=== PATIENT | female | born 1945 | race Caucasian/White ===

== ENCOUNTER 2020-06-15 13:02 | Emergency (ER) | payer MEDICARE, SELFPAY ==
[2020-06-15] VITALS (24 sets, daily range): BP systolic 101–141; BP diastolic 52–80; PULSE 76–115; RESP 0–20; TEMP 36.8; O2SAT 92–100
--- NOTE | ~2020-06-15 | XR_ITS ---
EXAMINATION: XR chest 1V portable INDICATION: Cough and shortness of breath TECHNIQUE: Portable AP chest at 1408 hours COMPARISON: None available FINDINGS: The lungs are free of acute opacities. There is no pleural effusion or pneumothorax. The ca rdiomediastinal silhouette is normal. IMPRESSION: 1. No acute cardiopulmonary abnormality. Reviewed, dictated and finalized at location B.
--- NOTE | ~2020-06-15 | CT_ITS ---
EXAMINATION: CTA chest PE protocol EXAM DATE: 06/15/2020 15:18 INDICATION: Cough and congestion, symptoms one week. Dyspnea. TECHNIQUE: Spiral CTA of the chest (pulmonary arteries) was performed with 100 cc Omnipaque 350 intr avenous contrast injection. Images were acquired during the pulmonary arterial phase. Coronal maxi mum intensity projection 3D-reconstructions were created by the technologist on dedicated workstation . Axial, coronal and sagittal reformatted images were reviewed. The dose-length product (DLP) for t his examination was 257.69 mGy-cm. The exposure was tailored according to patient size (auto mA exp osure control), and iterative reconstruction (ASIR) was used as additional dose reduction technique. There is no prior study for comparison. FINDINGS: Pulmonary arteries are well opacified and without intraluminal filling defects. No thora cic aortic dissection. The lungs are clear. There are no pleural or pericardial effusions. Trach eobronchial tree is patent. There is no mediastinal, hilar or axillary lymphadenopathy. There is no pneumothorax. Heart normal in size. There is mild coronary arterial calcification, arterial sc lerosis. Upper abdomen is unremarkable. There is mild thoracic spondylosis without osteoblastic or osteolytic lesions identified. IMPRESSION: 1. No pulmonary emboli or acute cardiopulmonary findings. Reviewed, dictated and finalized at location A.
--- NOTE | 2020-06-15 13:34 | ECG_ITS ---
Measurements Intervals [place] Rate: 91 P: 20 [place]: 168 QRS: 8 QRSD: 77 T: 36 QT: 328 QTc: 404 Interpretive Statements SINUS RHYTHM POSSIBLE LEFT ATRIAL ENLARGEMENT INCOMPLETE RIGHT BUNDLE BRANCH BLOCK BORDERLINE ECG Electronically Signed On 06-15-2020 15:50:42 CDT by Wayne Guadarrama D.O.
--- NOTE | 2020-06-15 13:38 | ED.SOB ---
HPI - SOB/Dyspnea General Chief Complaint: Shortness of Breath/Dyspnea Stated Complaint: SOB, chills, -COVID 06/08/20 Time Seen by Provider: 06/15/20 13:28 Source: RN notes reviewed History of Present Illness HPI Narrative: Patient presents emergency department from home for shortness of breath. Patient states symptoms been ongoing for the past 10 days. States he has been associated with a cough that is been productive of some yellow sputum. Patient states that she is felt some shortness of breath today as well as a heaviness in her chest and rhinorrhea. Patient states heaviness in chest is worse with coughing states that she was seen in urgent care on 06/08/2020 and had a negative cover test at that time as well as negative chest x-ray. She denies any fevers or chills abdominal pain nausea vomiting or any other symptoms Related Data Home Medications Medication Instructions Recorded Confirmed FiberCon 06/15/20 alprazolam 06/15/20 06/15/20 amlodipine 06/15/20 atorvastatin 06/15/20 cyclosporine [Restasis] 06/15/20 duloxetine mg PO 06/15/20 lactobacillus combination no.8 06/15/20 [Adult Probiotic] lisinopril 06/15/20 omeprazole 06/15/20 Allergies Allergy/AdvReac Type Severity Reaction Status Date / Time sulfamethoxazole Allergy Swelling Verified 06/15/20 14:18 [From ] of Lip/Tongue/Throat trimethoprim [From ] Allergy Swelling Verified 06/15/20 14:18 of Lip/Tongue/Throat Review of Systems Review of Systems: Narrative: Gen.: Denies fevers or chills Eyes: Denies eye pain or visual change ENT: Reports congestion Respiratory: See HPI CV: Reports chest heaviness GI: Denies abdominal pain nausea, emesis or diarrhea Musculoskeletal: Denies back pain or muscle pain Neuro: Denies numbness, tingling, weakness or focal weakness Skin: Denies rash Except as documented, all other systems reviewed and negative [facility] Past Medical History Medical History (Updated 06/15/20 @ 17:56 by Ric Hester DO) Irritable bowel syndrome Social History Social History (Updated 06/15/20 @ 13:40 by Ric Hester DO) Smoking status: Current every day smoker Exam Narrative: Exam Narrative: APPEARANCE: No acute distress, nontoxic, resting in bed EYES: EOMI HEENT: Normocephalic, atraumatic, bilateral turbinates boggy, oral mucosa moist RESPIRATORY: No respiratory distress Clear to auscultation bilaterally with no rhonchi wheezing or rales. CARDIOVASCULAR: Regular rate and rhythm without murmurs rubs or gallops. ABDOMINAL: Soft, nontender, nondistended, no rebound or guarding MUSCULOSKELETAl: Moves all extremities. No clubbing, cyanosis or edema. NEURO: Awake and alert. Following commands, speech normal, no focal deficits SKIN:: Warm, dry. No rashes lesions or abrasions PSYCHIATRIC: Normal affect/mood, Course Course Emergency Course: Patient given inhaler in ED states she is feeling better at this time the patient did have a cover test that was negative on June 08 but will repeat cover test at this time Discussed with patient results of workup and diagnosis. Discussed need for follow-up with primary care, proper use of medication, and reasons to return to the emergency department. Patient understands and agrees to current treatment plan Vital Signs Vital signs: Vital Signs Temperature 98.3 F 06/15/20 13:26 Pulse Rate 115 H 06/15/20 13:26 Respiratory Rate 18 06/15/20 13:26 Blood Pressure 119/74 06/15/20 13:26 Pulse Oximetry 100 06/15/20 13:26 Temperature 98.3 F 06/15/20 13:26 Pulse Rate 80 06/15/20 17:00 Respiratory Rate 20 06/15/20 17:00 Blood Pressure 129/68 06/15/20 16:46 Pulse Oximetry 100 06/15/20 16:46 MDM - SOB/Dyspnea MDM Narrative Medical decision making narrative: Patient's EKGs and labs are without significant high risk changes. Cardiac risk factors reviewed. Patient is felt likely low risk for ACS and reasonable for furthe
[2020-06-15 14:04] LABS: Basophils Absolute Auto 0.1 K/mm3 (0.0-0.1); Basophils Percent Auto 0.6 % (0.2-1.2); Eosinophils Absolute Auto 0.1 K/mm3 (0-0.3); Eosinophils Percent Auto 0.7 % (0-4.4); Hematocrit 40.3 % (37.0-47.0); Hemoglobin 13.1 g/dL (12.0-15.0); Immature Granulocyte Absolute 0.03 K/mm3 (0.00-0.031); Immature Granulocyte Percent A 0.3 % (0-0.5); Lymphocytes Absolute Auto 2.27 K/mm3 (0.9-3.2); Lymphocytes Percent Auto 23.4 % (18.3-44.2); Mean Corpuscular HGB Conc 32.5 g/dl (32-36); Mean Corpuscular Hemoglobin 28.7 pg (26-34); Mean Corpuscular Volume 88.2 fl (80-100); Mean Platelet Volume 9.9 fl (7.4-10.4); Monocytes Absolute Auto 0.8 K/mm3 (0.1-0.6); Neutrophils Absolute Auto 6.5 K/mm3 (1.3-6.7); Platelet Count Result 388 k/mm3 (150-375); Red Blood Count 4.57 M/mm3 (4.2-5.4); Red Cell Distribution Width 14.5 % (11.5-14.5); White Blood Count 9.7 K/mm3 (4.5-10.0)
[2020-06-15 14:14] LABS: Anion Gap 7 mmol/L (8-16); Blood Urea Nitrogen 26 mg/dL (7-17); Calcium 9.1 mg/dL (8.4-10.2); Carbon Dioxide 26 mmol/L (22-30); Chloride 102 mmol/L (98-107); Estimated CRCL calculation 52 ml/min; Estimated Glomerular Filt Rate > 60; Glucose 158 mg/dL (65-105); Potassium 3.9 mmol/L (3.4-5.0); Sodium 135 mmol/L (137-145)
[2020-06-15 14:18] LABS: Prothrombin Time 12.4 Seconds (11.1-14.7)
[2020-06-15 14:19] LABS: Partial Thromboplastin Time 31.2 SECONDS (22.3-36.8)
[2020-06-15 14:26] LABS: NT Pro B Type Natriuretic Pept 39 PG/ML (5-100); Troponin I < 0.012 ng/mL (0.000-0.034)
[2020-06-15 17:05] LABS: Troponin I < 0.012 ng/mL (0.000-0.034)
[2020-06-16 01:17] LABS: SARS-CoV-2 RNA PCR Negative
== END 2020-06-15 18:10 | disposition home or self-care (01) ==
PROVIDERS: Emergency Provider Emergency Medicine; PCP Internal Medicine
DX: J06.9 Acute upper respiratory infection, unspecified (principal); Z20.828 Contact with and (suspected) exposure to other viral communicable diseases; K58.9 Irritable bowel syndrome, unspecified; F17.200 Nicotine dependence, unspecified, uncomplicated; I45.10 Unspecified right bundle-branch block; R94.31 Abnormal electrocardiogram [ECG] [EKG]
CPT/HCPCS: 36415; 71045; 71275; 80048; 83880; 84484; 85025; 85610; 85730; 87635; 93005; 96374; 99284; A9270; C9803; J0131; Q9967; U0003

== ENCOUNTER → 2021-02-03 09:50 | Outpatient (CLI) | payer MEDICARE, SELFPAY ==
--- NOTE | ~2021-02-03 | MR_ITS ---
EXAMINATION: MR cervical spine wo con EXAM DATE: 02/03/2021 10:46 INDICATION: Cervical disc disorder at C4-C7 level with myelopathy cervical disc disorder at c4-c7 lev el with myelopathy . TECHNIQUE: Multi-sequential, multiplanar MR images of the cervical spine were obtained without contra st. Axial T2, axial T2 MERGE sequence. Sagittal T1, T2, T2 fat saturation images also obtained. Th ere is no prior study for comparison. FINDINGS: Moderate to severe loss of the disc height C4-C7. Disc bulges at these levels causing some flattening of the spinal cord which is most likely chronic cord compression, canal most narrowed at the C5-6 level to 6 mm. No definite cord edema identified. The vertebral bodies are aligned in the AP dimension. Cervicomedullary junction is normal in appearance. There are no suspicious marrow signal abnormalities. Paraspinal soft tissue is unremarkable. Level by level evaluation: C2-C3: Disc does not extend beyond the endplate margin. Uncovertebral joint arthropathy: Mild right. Facet joint arthropathy: Mild to moderate right, mild left. Neural foraminal stenosis: Mild to moderate right. Central canal stenosis: No stenosis. C3-C4: Disc does not extend beyond the endplate margin. Uncovertebral joint arthropathy: Mild to moderate right, mild left. Facet joint arthropathy: Mild to moderate bilateral. Neural foraminal stenosis: Mild to moderate bilateral. Central canal stenosis: No stenosis. C4-C5: There is a mild diffuse disc bulge. Uncovertebral joint arthropathy: Moderate to severe right, moderate left. Facet joint arthropathy: Moderate bilateral. Neural foraminal stenosis: Moderate to severe right, moderate left. Central canal stenosis: Mild. C5-C6: There is a mild diffuse disc bulge. Uncovertebral joint arthropathy: Severe left, moderate to severe right. Facet joint arthropathy: Moderate bilateral. Neural foraminal stenosis: Moderate to severe bilateral. Central canal stenosis: Mild to moderate . Central canal measures 6 mm in mid sagittal AP diameter . C6-C7: There is a mild diffuse disc bulge. Uncovertebral joint arthropathy: Severe right, moderate to severe left. Facet joint arthropathy: Mild to moderate bilateral. Neural foraminal stenosis: Severe right, moderate left. Central canal stenosis: Mild . Central canal measures 7 mm in mid sagittal AP diameter . C7-T1: Disc does not extend beyond the endplate margin. Uncovertebral joint arthropathy: Mild bilateral. Facet joint arthropathy: Mild to moderate bilateral. Neural foraminal stenosis: Mild bilateral. Central canal stenosis: No stenosis. IMPRESSION: Chronic cord compression C4-7, with minimal CSF space surrounding the cord at C5-6 and 6- 7 levels. No definite cord edema. Significant neural foraminal stenosis at these levels. Reviewed, dictated and finalized at location A. IMPRESSION: Chronic cord compression C4-7, with minimal CSF space surrounding t he cord at C5-6 and 6-7 levels. No definite cord edema. Significant neural for aminal stenosis at these levels.
== END ==
PROVIDERS: Visit Provider Neurological Surgery
DX: M50.021 Cervical disc disorder at C4-C5 level with myelopathy (principal); M50.022 Cervical disc disorder at C5-C6 level with myelopathy; M50.023 Cervical disc disorder at C6-C7 level with myelopathy
CPT/HCPCS: 72141

== ENCOUNTER 2021-02-06 09:36 | Outpatient (CLI) | payer MEDICARE, SELFPAY ==
--- NOTE | ~2021-02-06 | US_ITS ---
EXAMINATION: US carotid duplex BI DATE: 02/06/2021 10:23 INDICATION: Bilateral carotid stenosis. Coronary atherosclerosis. TECHNIQUE: Grayscale, color Doppler, and pulsed Doppler images of the cervical carotid arteries were obtained. The degree of vessel stenosis is placed in one of the following categories: normal, <50%, 5 0-69%, >=70% but less than near-occlusion, near-occlusion, or total occlusion. Note that percent sten osis relative to normal distal artery lumen diameter is indirectly measured from velocity measurement s as described by Melvin, et al. Radiology 2003; 229:340-346. Notes: Normal: Peak systolic velocity <125 centimeters/sec and no plaque <50%. Peak systolic velocity <125 ( EDV <40; ICA/CCA PSV ratio <2.0; used these factors only a tandem lesions or low cardiac output or co ntralateral disease) 50-69 %: PSV 125-230 (EDV 40-100; ratio 2-4) >= 70% but less than near occlusion: PSV greater than 230 (EDV > 100; ratio> 4.0) Near Occlusion: PSV that is variable; markedly narrowed lumen Occlusion: Absent flow on color/spectral Doppler and no lumen on alvarado scale. COMPARISON: None. FINDINGS: RIGHT: The right common carotid artery (CCA) peak systolic velocity (PSV) is 76 cm/s. The right internal car otid artery (ICA) PSV is 76 cm/s. The right ICA end-diastolic velocity (EDV) is 23 cm/s. The right IC A/CCA PSV ratio is 1.0. The external carotid artery (ECA) PSV is 99 cm/s. There is antegrade flow in the right vertebral artery. LEFT: The left CCA PSV is 67 cm/s. The left ICA PSV is 71 cm/s. The left ICA EDV is 21 cm/s. The left ICA/C CA PSV ratio is 1.06. The ECA PSV is 95 cm/s. There is antegrade flow in the left vertebral artery. IMPRESSION: 1. Less than 50% stenosis in the right internal carotid artery by sonographic criteria. 2. Less than 50% stenosis in the left internal carotid artery by sonographic criteria. Reviewed, dictated and finalized at location A. IMPRESSION: 1. Less than 50% stenosis in the right internal carotid artery by sonographic c kandaceeria. 2. Less than 50% stenosis in the left internal carotid artery by sonographic cr zhen.
== END 2021-02-06 09:37 | disposition home or self-care (01) ==
PROVIDERS: Visit Provider Neurological Surgery
DX: I65.23 Occlusion and stenosis of bilateral carotid arteries (principal)
CPT/HCPCS: 93880

== ENCOUNTER → 2021-03-08 10:45 | Outpatient (CLI) | payer MEDICARE, SELFPAY ==
--- NOTE | ~2021-03-08 | XR_ITS ---
EXAMINATION: XR cervical spine 4-5V EXAM DATE: 03/08/2021 11:14 INDICATION: Cervical fusion. TECHNIQUE: Cervical spine frontal, lateral, and open-mouth odontoid projections. Bilateral oblique projections of the cervical spine. There are no prior studies for comparison. FINDINGS: Anterior and interbody fusion C4-7, hardware intact. The vertebral bodies are aligned in th e AP dimension. Vertebral body and disc heights are well-maintained. Overall mild to moderate cervica l arthropathy and mild uncovertebral joint disease, with evidence of mild left neural foraminal steno sis at C4-5 and 5-6, mild right neural foraminal stenosis at C6-7. Prevertebral soft tissue and pre-d ens space are within normal limits. The odontoid process is intact. The lateral masses of C1 line up with C2. IMPRESSION: 1. Mild to moderate cervical arthropathy. Reviewed, dictated and finalized at location B.
== END ==
PROVIDERS: Visit Provider Neurological Surgery
DX: M43.22 Fusion of spine, cervical region (principal); M47.812 Spondylosis without myelopathy or radiculopathy, cervical region
CPT/HCPCS: 72050

== ENCOUNTER → 2021-05-05 12:21 | Outpatient (CLI) | payer MEDICARE, SELFPAY ==
--- NOTE | ~2021-05-05 | XR_ITS ---
EXAMINATION:XR cervical spine 4-5V DATE: 05/05/2021 12:39 INDICATION: Fusion of the spine, cervical region TECHNIQUE: AP, lateral, bilateral oblique and odontoid views of the cervical spine are provided. COMPARISON: 03/08/2021 FINDINGS: There are stable changes of anterior and interbody fusion from C4 through C7. There is no h ardware failure or loosening. Alignment is normal. The odontoid is intact. No fracture is identified. The vertebral body heights are normal. There is moderate multilevel facet osteoarthritis and mild mu ltilevel uncovertebral joint osteoarthritis. There is unchanged mild right neuroforaminal stenosis on the left at C4-5 and C5-6 and on the right at C6-7. Prevertebral soft tissues are normal. IMPRESSION: 1. Mild to moderate spondylosis without acute findings or significant interval change. Reviewed, dictated and finalized at location A.
== END ==
PROVIDERS: Visit Provider Neurological Surgery
DX: M43.22 Fusion of spine, cervical region (principal); M47.812 Spondylosis without myelopathy or radiculopathy, cervical region
CPT/HCPCS: 72050

== ENCOUNTER → 2021-10-24 10:12 | Outpatient (CLI) | payer MEDICARE, SELFPAY ==
--- NOTE | ~2021-10-24 | CT_ITS ---
EXAMINATION: CT abdomen pelvis w con DATE: 10/24/2021 10:51 INDICATION: Epigastric abdominal pain. TECHNIQUE: Computed tomography (CT) of the abdomen and pelvis was performed with 100 cc Omnipaque 350 intravenous contrast. Automated exposure control and iterative reconstruction technique were employe d. Exam dose: 550.37 mGy-cm total exam DLP. COMPARISON: 05/05/2017 CT abdomen pelvis FINDINGS: Lung bases are clear of consolidation. Normal heart size. No pericardial or pleural effusio n. No hepatic space-occupying mass lesion is detected. The gallbladder is present. No bile duct or pancr eatic duct dilatation. No pancreatic mass lesion or calcification. Normal splenic size. No adrenal mass lesion 12 mm upper pole right renal cyst.. No urinary tract calculus or hydroureteronephrosis. The urinary b ladder, uterus and adnexal areas are unremarkable. There is a suture line at the rectosigmoid area as well as a prominent amount of fecal material withi n the colon. History of appendectomy. No bowel obstruction, bowel wall thickening, pneumatosis or int raperitoneal free air. Normal caliber of the abdominal aorta. No intraperitoneal or retroperitoneal or pelvic mass lesion or adenopathy or ascites. Very small fat-containing umbilical hernia. Severe degenerative disc disease at L5-S1. Diffuse osteopenia. No suspicious osteolytic or osteoblast ic lesions are noted. IMPRESSION: Status post appendectomy Postoperative changes rectosigmoid area; no bowel obstruction 12 mm upper pole right renal cyst Reviewed, dictated and finalized at Location A. Reviewed, dictated and finalized at location A. MIN MANAGER
[2021-10-24 10:40] LABS: Estimated Glomerular Filt Rate > 60
== END ==
PROVIDERS: PCP Family Medicine; Visit Provider Internal Medicine Gastroenterology
DX: R10.13 Epigastric pain (principal); N28.1 Cyst of kidney, acquired
CPT/HCPCS: 74177; Q9967

== ENCOUNTER 2021-11-16 15:48 | Observation (INO) | payer MEDICARE, SELFPAY ==
--- NOTE | ~2021-11-16 | XR_ITS ---
EXAMINATION: XR chest 1V portable DATE: 11/16/2021 16:29 INDICATION: Left chest pain. Shortness of breath. TECHNIQUE: A single frontal view of the chest was obtained. COMPARISON: Chest single view 06/15/2020, CT abdomen and pelvis 10/24/2021 FINDINGS: The chest demonstrates clear lungs without pneumonia, pleural effusion, or pneumothorax. Th e heart size is normal. There are changes of anterior fusion procedure in cervical spine. IMPRESSION: 1. No acute cardiopulmonary disease. Reviewed, dictated and finalized at location E. PROFESSOR
--- NOTE | ~2021-11-16 | CT_ITS ---
EXAMINATION: CTA chest PE protocol DATE: 11/16/2021 17:26 INDICATION: Shortness of breath. TECHNIQUE: Computed tomography angiography (CTA) of the chest was performed with 100 mL Omnipaque-350 intravenous contrast timed to evaluate the pulmonary arteries. Coronal maximum intensity projection 3D-reconstructions were created by the technologist. Automated exposure control and iterative reconst ruction technique were employed. The dose-length product was 182.42 mGy-cm. COMPARISON: Chest CT 06/15/2020 FINDINGS: There is mild scarring at the lung apices. There is a stable 3 mm nodule in left upper lobe , likely benign. There is mild atelectasis bilaterally. There is mild emphysema. No pleural effusion. The heart size is normal. There are coronary artery calcifications. No pericardial effusion. There i s no pulmonary embolus. There is severe thoracic spondylosis. There are changes of anterior fusion pr ocedure in cervical spine. IMPRESSION: 1. No pulmonary embolus. 2. Mild emphysema. Reviewed, dictated and finalized at location E. TENANCE TEAM LEADER
[2021-11-16 15:52] VITALS: BP 126/65; PULSE 83; RESP 18; TEMP 36.9; O2SAT 98
[2021-11-16 16:01] VITALS: BP 135/70; PULSE 93; RESP 22; O2SAT 98
[2021-11-16 16:10] LABS: Basophils Absolute Auto 0.1 K/mm3 (0.0-0.1); Basophils Percent Auto 0.7 % (0.2-1.2); Eosinophils Absolute Auto 0.1 K/mm3 (0-0.3); Eosinophils Percent Auto 0.9 % (0-4.4); Hematocrit 45.1 % (37.0-47.0); Hemoglobin 14.9 g/dL (12.0-15.0); Immature Granulocyte Absolute 0.02 K/mm3 (0.00-0.031); Immature Granulocyte Percent A 0.2 % (0-0.5); Lymphocytes Absolute Auto 2.83 K/mm3 (0.9-3.2); Lymphocytes Percent Auto 29.5 % (18.3-44.2); Mean Corpuscular Hemoglobin 30.3 pg (26-34); Mean Corpuscular Volume 91.9 fl (80-100); Monocytes Absolute Auto 0.9 K/mm3 (0.1-0.6); Monocytes Percent Auto 9.6 % (2.6-8.5); Neutrophils Absolute Auto 5.7 K/mm3 (1.3-6.7); Neutrophils Percent Auto 59.1 % (45.5-73.1); Platelet Count Result 369 k/mm3 (150-375); Red Blood Count 4.91 M/mm3 (4.2-5.4); Red Cell Distribution Width 13.3 % (11.5-14.5); White Blood Count 9.6 K/mm3 (4.5-10.0)
[2021-11-16] MEDS: ONDANSETRON INJ 4 MG/2 ML VIAL IV PUSH (16:10)
[2021-11-16 16:19] LABS: INR 0.9; Prothrombin Time 12.5 Seconds (11.1-14.7)
[2021-11-16 16:20] LABS: Alanine Aminotransferase 22 U/L (4-35); Albumin Level 4.4 g/dL (3.5-5.1); Alkaline Phosphatase 73 U/L (38-126); Anion Gap 8 mmol/L (8-16); Aspartate Amino Transferase 23 U/L (14-36); Bilirubin,Total 0.1 mg/dL (0.2-1.3); Blood Urea Nitrogen 22 mg/dL (7-17); Calcium 10.1 mg/dL (8.4-10.2); Carbon Dioxide 26 mmol/L (22-30); Chloride 104 mmol/L (98-107); Estimated CRCL calculation 49 ml/min; Estimated Glomerular Filt Rate > 60; Glucose 143 mg/dL (65-110); Lipase 66 U/L (23-300); Partial Thromboplastin Time 29.5 SECONDS (22.3-36.8); Sodium 138 mmol/L (137-145)
--- NOTE | 2021-11-16 16:29 | ED.CHESTPAIN ---
HPI - Chest Pain General Chief Complaint: Chest Pain Stated Complaint: chest pain Time Seen by Provider: 11/16/21 16:12 Source: patient Mode of arrival: ambulatory Limitations: no limitations History of Present Illness HPI narrative: Patient is a 76-year-old female complaining of chest pain, left chest, 8 out of 10, pressure, nonradiating accompanied by shortness of breath, diaphoresis, started approximately 2 hours ago. Patient also states that she has been having abdominal pain, that is nothing new she has had it for approximately 1 month now, has seen her GI multiple times for it, had a CT scan of abdomen pelvis done approximately 2 weeks ago and her union organiser told her it was normal. Patient states that her union organiser scheduled her for an upper endoscopy and colonoscopy since they did not find anything abnormal in her CT scan, unknown source of her abdominal pain. Related Data Home Medications Medication Instructions Recorded Confirmed FiberCon 06/15/20 alprazolam 06/15/20 06/15/20 amlodipine 06/15/20 atorvastatin 06/15/20 cyclosporine [Restasis] 06/15/20 duloxetine mg PO 06/15/20 lactobacillus combination no.8 06/15/20 [Adult Probiotic] lisinopril 06/15/20 omeprazole 06/15/20 Allergies Allergy/AdvReac Type Severity Reaction Status Date / Time sulfamethoxazole Allergy Swelling Verified 06/15/20 14:18 [From ] of Lip/Tongue/Throat trimethoprim [From ] Allergy Swelling Verified 06/15/20 14:18 of Lip/Tongue/Throat Review of Systems Review of Systems: All systems reviewed & are unremarkable except as noted in HPI and below Constitutional: Constitutional: Denies body ache(s), Denies chills, Denies excessive sweating, Denies fatigue, Denies fever(s), Denies headache(s), Denies lethargy, Denies malaise, Denies weakness and Denies weight loss Eyes: Eyes: Denies blurry vision, Denies change in vision and Denies loss of vision ENT: Denies dizziness, Denies ear discharge, Denies headache(s), Denies lip swelling, Denies epistaxis, Denies nasal congestion, Denies neck pain, Denies throat swelling and Denies tongue swelling Cardiovascular: Cardiovascular: Denies rapid heart rate, Denies edema, Denies irregular heart rhythm, Denies lightheadedness and Denies palpitations Respiratory: Respiratory: Denies chest congestion, Denies cough and Denies hemoptysis Gastrointestinal: Gastrointestinal: Denies abdominal pain, Denies melena, Denies hematochezia, Denies diarrhea, Denies nausea, Denies vomiting and Denies hematemesis Musculoskeletal: Musculoskeletal: Denies abnormal gait, Denies deformity, Denies joint swelling, Denies limited range of motion, Denies neck pain and Denies numbness Neurologic: Denies Abnormal speech present, Denies abnormal gait, Denies confusion, Denies dizziness, Denies headache(s), Denies focal weakness, Denies loss of vision, Denies numbness, Denies Other visual disturbances, Denies Sensory deficit (Neuro) and Denies weakness Psychiatric: Psychiatric: Denies confusion, Denies depression, Denies auditory hallucinations, Denies homicidal ideation and Denies suicidal ideation Endocrine: Endocrine: Denies cold intolerance, Denies excessive sweating, Denies fatigue, Denies heat intolerance and Denies palpitations Hematologic/Lymphatic: Hematologic/Lymphatic: Denies easy bleeding and Denies easy bruising Allergic/Immunologic: Allergic/Immunologic: Denies lip swelling, Denies throat swelling and Denies tongue swelling PMFSH Past Medical History Medical History (Updated 11/16/21 @ 18:28 by Ric Troy MD) Irritable bowel syndrome Social History Social History (Updated 06/15/20 @ 13:40 by Ric Hester DO) Smoking status: Current every day smoker Comments Past medical history: Hypertension, anxiety, hyperlipidemia Family history: Hypertension Social history: Positive for smoker, no EtOH use, no drug use Exam Const: General
[2021-11-16 16:32] LABS: Troponin I < 0.012 ng/mL (0.000-0.034)
--- NOTE | 2021-11-16 17:00 | PC.NURSE ---
pt reports decrease in nausea at this time but continues to reports back and abdominal pain. Pt given ice pack per request.
[2021-11-16] MEDS: PROMETHAZINE HCL 25 MG/ML AMPUL 12.5 MG IV PUSH (17:49)
[2021-11-16] MEDS: HYDROmorphone HCL INJ (*CRX) 1 MG/ML SYR 0.5 MG IV PUSH (17:49)
[2021-11-16 18:00] VITALS: BP 127/73; PULSE 85; RESP 18; O2SAT 96
[2021-11-16] MEDS: LACTATED RINGERS 1,000 ML 999 ML IV CONT (18:07)
--- NOTE | 2021-11-16 18:59 | ECG_ITS ---
Measurements Intervals [place] Rate: 90 P: 19 [place]: 165 QRS: -1 QRSD: 90 T: 35 QT: 331 QTc: 405 Interpretive Statements SINUS RHYTHM INCOMPLETE RIGHT BUNDLE BRANCH BLOCK BASELINE ARTIFACT- I, II, III, AVR, AVL, AVF, V1-V6 BORDERLINE ECG Electronically Signed On 11-16-2021 16:24:07 BLOOD BANK LABORATORY TECHNICIAN by Wayne Guadarrama D.O.
[2021-11-16 19:58] LABS: Troponin I < 0.012 ng/mL (0.000-0.034)
[2021-11-16 21:06] LABS: SARS-CoV-2 RNA PCR Negative
[2021-11-16 21:49] VITALS: BP 110/59; PULSE 90; RESP 18; TEMP 37.1; O2SAT 99
[2021-11-16 22:40] VITALS: BP 113/62; PULSE 78; RESP 20; TEMP 36.8; O2SAT 97
[2021-11-16 22:45] VITALS: BMI 25.0
[2021-11-17] VITALS: BP 116/50; PULSE 70; PULSE 75; RESP 18; RESP 20; TEMP 36.7; O2SAT 95
[2021-11-17 00:13] LABS: Troponin I < 0.012 ng/mL (0.000-0.034)
[2021-11-17 04:00] VITALS: BP 114/59; PULSE 65; RESP 18; TEMP 36.7; O2SAT 95
[2021-11-17 05:36] VITALS: O2SAT 95
--- NOTE | 2021-11-17 08:12 | PM.SD2 ---
Same Day Admit/Disch: HPI History of Present Illness Chief complaint: Chest Pain Narrative: Rita Hilario is a 76 year old female with a past medical history of IBS and small intestine bacterial overgrowth who presented to the ER via private vehicle due to abdominal pain, back pain and chest pain. Patient reports that she has a had a long history abdominal pain and difficulties. She and had difficulty with chronic constipation as far back as her young childhood. She has been diagnosed with IBS and is seeing a ecommerce marketing specialist from [facility]. Back in August gastroenterologists give her course of Xifaxan which did not help her abdominal symptoms. Her abdominal symptoms usually involve abdominal bloating and discomfort that radiates through to her mid back. It is accompanied by an inability to pass flatulence at times. This symptoms become worse when she eats. She reports that at times the pain is a 10/10 in intensity. She has had increased abdominal pain for 1 month. She saw her ecommerce marketing specialist 2 weeks ago and had a CT of the abdomen pelvis which demonstrated no acute process. She is scheduled for an EGD and colonoscopy on November 21. She states that yesterday when she presented to the hospital her pain was so severe that she became anxious. She does have a long history of anxiety as well. She then developed left-sided chest pain. However she reported the pain started in her abdomen and radiated up into her left chest. It was accompanied by sensation of tingling and electrical shocks across her skin. The chest discomfort was pressure-like in nature. She reports that her chest pain resolved after she had improvement in her abdominal pain. She reports that Bentyl and other motility agents do not help with her abdominal pain. She was having some nausea and in the ER received a of Zofran. She has not had any further nausea but states that is due to her not having had anything to eat. She reports a 10 lb weight loss over the last month due to her symptoms. She does have a long history of smoking. She reports that she wheezes quite frequently but does not feel short of breath. She has an occasional cough that is unchanged from baseline. She has not had any fevers or chills. She denies a known history of COPD but does have evidence of emphysema on the CTA of her chest. The patient had serial cardiac enzymes performed and was ruled out for acute cardiac event. Patient's symptoms most consistent with anxiety/panic attack associated with her abdominal pain or referral of her pain from her abdominal region. [facility] Past Medical History Medical History (Updated 11/17/21 @ 08:33 by Guadalupe Banerjee DO) COPD (chronic obstructive pulmonary disease) Essential hypertension Hyperlipidemia Irritable bowel syndrome Right kidney stone Small intestinal bacterial overgrowth (SIBO) Tobacco use disorder, continuous Surgical History Surgical History (Updated 11/17/21 @ 08:26 by Guadalupe Banerjee DO) History of appendectomy History of colon resection Due to ?kinking? of her colon. 10 inches removed. History of left oophorectomy History of tonsillectomy Status post cataract extraction of both eyes with insertion of intraocular lens Family History Family History (Updated 11/17/21 @ 08:35 by Guadalupe Banerjee DO) Mother , At 84 years of age Acute myocardial infarction Hypertension Social History Social History (Updated 11/17/21 @ 08:37 by Guadalupe Banerjee DO) Social History: She has been since 2015. She has 2 adult daughters. She started smoking at the age of 20. She has smoked between 0.5 and 0.25 packs cigarettes per day since then. She denies any alcohol use. She denies any illicit substance use. 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
[2021-11-17 08:27] VITALS: BP 117/54; PULSE 70; RESP 18; TEMP 35.7; O2SAT 97
== END 2021-11-17 10:40 | disposition home or self-care (01) ==
LOC: ANHED 20:27 → ANHIMU 11-17 01:58
PROVIDERS: Emergency Medicine; Admitting Provider Family Medicine; Emergency Provider Emergency Medicine; PCP Family Medicine; Visit Provider Internal Medicine
DX: R07.89 Other chest pain (principal); K58.9 Irritable bowel syndrome, unspecified; J44.9 Chronic obstructive pulmonary disease, unspecified; I10 Essential (primary) hypertension; E78.5 Hyperlipidemia, unspecified; F17.210 Nicotine dependence, cigarettes, uncomplicated; Z79.51 Long term (current) use of inhaled steroids; Z20.822 Contact with and (suspected) exposure to COVID-19
CPT/HCPCS: 36415; 71045; 71275; 80053; 83690; 84484; 85025; 85380; 85610; 85730; 93005; 96361; 96374; 96375; 99285; C9803; G0378; J1170; J2405; J2550; J7120; Q9967; U0003; U0005

== ENCOUNTER 2022-10-16 08:35 | Outpatient (CLI) | payer MEDICARE, SELFPAY ==
--- NOTE | ~2022-10-16 | MR_ITS ---
EXAMINATION: MR brain/brain stem wo/w con DATE: 10/16/2022 09:36 INDICATION: Episodes of shaking. Tremor. Dizziness. TECHNIQUE: Magnetic resonance imaging (MRI) of the brain and brainstem was performed without and with 13 mL MultiHance intravenous contrast. COMPARISON: None. FINDINGS: There are areas of nonspecific increased T2-weighted signal intensity in the cerebral white matter, which is within normal limits for the patient's age. There is no intracranial hemorrhage, ac [place] infarction, or abnormal intracranial mass lesion. The ventricles are normal in size. There is mil d mucosal thickening in the ethmoid sinuses. There are likely changes of ocular lens replacement surg eries. There is a trace right mastoid effusion. IMPRESSION: 1. Normal brain. Reviewed, dictated and finalized at location A. NESS PLANNING DIRECTOR IMPRESSION: 1. Normal brain.
== END 2022-10-16 08:36 | disposition home or self-care (01) ==
LOC: ANHIMG 08:38
PROVIDERS: PCP Family Medicine; Visit Provider Student in an Organized Health Care Education/Training Program
DX: R25.1 Tremor, unspecified (principal)
CPT/HCPCS: 70553; A9577

== ENCOUNTER → 2023-07-15 10:15 | Outpatient (CLI) | payer MEDICARE, SELFPAY ==
--- NOTE | ~2023-07-15 | MR_ITS ---
EXAMINATION: MR thoracic spine wo con DATE: 07/15/2023 11:21 INDICATION: Ataxia and lower extremity tingling and weakness. TECHNIQUE: Magnetic resonance imaging (MRI) of the thoracic spine was performed without intravenous c ontrast. Sagittal localizer T1-weighted FSE of the cervicothoracic spine was obtained. Thoracic spine sequences included sagittal T2-weighted FSE, sagittal T1-weighted SE, Sagittal T2-weighted FS FSE, a nd axial T2-weighted FSE. COMPARISON: None FINDINGS: 7 degrees thoracic levocurvature. Sagittal alignment is normal. Magnetic field artifact at C7 related to anterior plate-screw fixation for a mid to lower cervical anterior spinal fusion as seen on radio graphs dated 05/05/2021. Vertebral body heights are normal.T1 hyperintense hemangiomas atT9 and T11. 9 x 6 mm T2 hyper intense lesion at T6 which retains T1 hyperintense fat signal which remains hyperint ense to skeletal muscle most likely representing an atypical hemangioma. Moderate disc height loss at T6-T7 through T8-T9 with minimal to mild disc height loss through out the remainder of the thoracic spine. Tiny central disc protrusions at T2-T3, T4-T5 and T6-T7 with negligible central canal stenosis . There is is multilevel mild to moderate bilateral thoracic facet osteoarthritis which contributes t o minimal to mild neural foraminal stenosis at multiple levels in the upper and midthoracic spine on both the left and right. There is normal spinal cord signal. The conus terminates at L2. 1.5 cm cyst at the upper pole of the right kidney. Paravertebral soft tissues are unremarkable. IMPRESSION: 1. Mild to moderate thoracic spondylosis with multilevel minimal to mild scattered bilateral neural f oraminal stenosis without significant central canal stenosis. Reviewed, dictated and finalized at location A. IMPRESSION: 1. Mild to moderate thoracic spondylosis with multilevel minimal to mild scatte red bilateral neural foraminal stenosis without significant central canal steno sis.
--- NOTE | ~2023-07-15 | MR_ITS ---
EXAMINATION: MR cervical spine wo con DATE: 07/15/2023 11:05 INDICATION: Neck and mid back pain. Ataxia. TECHNIQUE: Magnetic resonance imaging (MRI) of the cervical spine was performed without intravenous c ontrast. COMPARISON: Cervical spine MRI 02/03/2021 FINDINGS: Bone alignment is normal. There are changes of anterior fusion procedure from C4 to C7 with healed interbody bone graft and anterior plate and screws. Intervertebral disc heights are normal. T here is increased T2-weighted signal intensity in the spinal cord at C5-C6, consistent with myelomala doretha. The following disc levels are specifically discussed: C2-C3: The disc does not extend beyond the endplate margin. There is no uncovertebral joint osteoarth ritis. There is moderate right and mild left facet joint osteoarthritis. There is mild right neural f oraminal stenosis. There is no central canal stenosis. C3-C4: The disc is bulging and has an annular fissure. There is mild bilateral uncovertebral joint os teoarthritis. There is severe bilateral facet joint osteoarthritis. There is mild bilateral neural fo raminal stenosis. There is mild central canal stenosis. C4-C5: There is moderate bilateral uncovertebral joint hypertrophy. There is mild bilateral facet ludy nt osteoarthritis. There is mild bilateral neural foraminal stenosis. There is moderate central canal stenosis with ventral and dorsal indentation of the spinal cord. C5-C6: There is severe bilateral uncovertebral joint hypertrophy. There is mild bilateral facet joint osteoarthritis. There is mild right and moderate left neural foraminal stenosis. There is moderate c entral canal stenosis with ventral and dorsal indentation of the spinal cord. C6-C7: There is severe bilateral uncovertebral joint hypertrophy. There is mild bilateral facet joint osteoarthritis. There is severe right and moderate left neural foraminal stenosis. There is moderate central canal stenosis with ventral and dorsal indentation of spinal cord. C7-T1: The disc does not extend beyond the endplate margin. There is mild bilateral uncovertebral ludy nt osteoarthritis. There is severe bilateral facet joint osteoarthritis. There is mild bilateral neur al foraminal stenosis. There is no central canal stenosis. IMPRESSION: 1. Moderate cervical spondylosis. 2. Anterior fusion procedure from C4 to C7. 3. 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 Reviewed, dictated and finalized at location A.
== END ==
PROVIDERS: PCP Neurological Surgery; Visit Provider Orthopaedic Surgery
DX: R26.0 Ataxic gait (principal); R53.1 Weakness; R20.2 Paresthesia of skin; M43.04 Spondylolysis, thoracic region; M48.04 Spinal stenosis, thoracic region; M43.02 Spondylolysis, cervical region; M43.22 Fusion of spine, cervical region; G95.89 Other specified diseases of spinal cord
CPT/HCPCS: 72141; 72146

== ENCOUNTER → 2023-08-30 07:32 | Outpatient (CLI) | payer MEDICARE, SELFPAY ==
--- NOTE | ~2023-08-30 | MR_ITS ---
EXAMINATION: MR lumbar spine wo con DATE: 08/30/2023 08:17 INDICATION: Lumbar spinal stenosis with one year of low back pain but without neurogenic claudication TECHNIQUE: Magnetic resonance imaging (MRI) of the lumbar spine was performed without intravenous con trast. Sequences included sagittal T2-weighted FSE, sagittal T2-weighted FS FSE, sagittal T1-weighted FSE, and axial T2-weighted FSE. COMPARISON: CT abdomen and pelvis dated 10/21/2021 FINDINGS: 10 degrees lumbar dextrocurvature. 2 mm retrolisthesis L2 on L3 and L3 on L4. 3 mm retrolisthesis L5 on S1. Vertebral body heights are normal. T1 hyperintense hemangiomas at T11 and L3. Marrow signal is otherwise unremarkable. 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 Severe disc height loss at L5-S1. Mild left-sided predominant disc height loss at L2-3 through L4-L5. The conus medullaris te rminates at L2. There is normal signal in the caudal spinal cord. Paravertebral soft tissues are unre markable. The following disc levels are specifically discussed: T12-L1: The disc does not extend beyond the endplate margin. There is mild bilateral facet joint oste oarthritis. There is no neural foraminal stenosis. There is no central canal stenosis. L1-L2: The disc does not extend beyond the endplate margin. There is mild bilateral facet joint osteo arthritis. There is no neural foraminal stenosis. There is no central canal stenosis. L2-L3: Disc is bulging. There is mild bilateral facet joint osteoarthritis. There is mild bilateral n eural foraminal stenosis. There is mild central canal stenosis. L3-L4: Disc is bulging. There is hypertrophy of the ligamentum flavum. There is mild bilateral facet joint osteoarthritis. There is mild right and mild to moderate left neural foraminal stenosis. There is mild central canal stenosis. L4-L5: Disc is bulging. There is hypertrophy of the ligamentum flavum. There is moderate left and se [place] right facet joint osteoarthritis. There is moderate left and mild to moderate right neural dyan inal stenosis. There is mild central canal stenosis. L5-S1: Disc is bulging. There is mild left and moderate right facet joint osteoarthritis. There is mo derate right and mild to moderate left neural foraminal stenosis. There is minimal central canal sten osis. IMPRESSION: 1. Severe lumbosacral spondylosis and more cephalad mild lumbar spondylosis. Reviewed, dictated and finalized at location A. TECHNICAL ARCHITECT
== END ==
PROVIDERS: PCP Family Medicine; Visit Provider Orthopaedic Surgery
DX: M48.061 Spinal stenosis, lumbar region without neurogenic claudication (principal); M47.896 Other spondylosis, lumbar region
CPT/HCPCS: 72148

== ENCOUNTER 2023-10-17 12:13 | Outpatient (CLI) | payer MEDICARE, SELFPAY ==
--- NOTE | ~2023-10-17 | XR_ITS ---
XR knee RT min 4V DATE: 10/17/2023 12:42 INDICATION: Bilateral knee primary osteoarthritis TECHNIQUE: [place] and weightbearing AP, PA and lateral views COMPARISON: None FINDINGS: There is prominent joint space narrowing and moderate periarticular spurring at the patello femoral joint. There is minimal periarticular spurring at the medial and lateral compartments. There is mild loss of medial compartment joint space height. No fracture or dislocation or significant joint effusion is evident. No periosteal reaction or bone d estruction. No radiopaque intra-articular loose body is evident. Mild chondrocalcinosis suggested. IMPRESSION: Tricompartment osteoarthritis, most prominent at the patellofemoral joint Mild chondrocalcinosis is suggested Reviewed, dictated and finalized at location L. HAND
--- NOTE | ~2023-10-17 | XR_ITS ---
XR knee LT min 4V DATE: 10/17/2023 12:42 INDICATION: Bilateral knee primary osteoarthritis TECHNIQUE: [place] and weightbearing AP, PA and lateral views COMPARISON: None FINDINGS: There is mild suprapatellar knee joint effusion. There is lateral joint space narrowing and mild periarticular spurring of the patellofemoral joint. M edial and lateral compartment joint spaces are relatively well preserved. No fracture or dislocation, periosteal reaction or bone destruction, radiopaque intra-articular loose body or chondral calcinosis is noted. There is femoral and popliteal artery calcification. IMPRESSION: Mild suprapatellar knee joint effusion Patellofemoral osteoarthritis Reviewed, dictated and finalized at location L. [employer]
== END 2023-10-17 12:14 | disposition home or self-care (01) ==
PROVIDERS: PCP Family Medicine; Visit Provider Orthopaedic Surgery
DX: M17.0 Bilateral primary osteoarthritis of knee (principal); M25.462 Effusion, left knee
CPT/HCPCS: 73564

== ENCOUNTER → 2023-11-13 09:11 | Outpatient (CLI) | payer MEDICARE, SELFPAY ==
--- NOTE | ~2023-11-13 | DEXA_ITS ---
Bone Density Report Name: CHERISE FIELDS Age: 78 Sex: Female Ethnicity: White Date of : 1945 Indication: postmenopausal; screening for osteoporosis; height loss; hysterectomy; Referring Provider: Lacho, Cade Jacobsen Study: Bone densitometry was performed. Exam Date: November 13, 2023 Accession number: [id number] Bone Density: Region BMD T-score Z-score Classification AP Spine (L1-L4) 0.977 -0.6 1.9 Normal Femoral Neck (Left) 0.623 -2.0 0.1 Osteopenia Total Hip (Left) 0.867 -0.6 1.3 Normal Femoral Neck (Right) 0.667 -1.6 0.5 Osteopenia Total Hip (Right) 0.863 -0.6 1.3 Normal Total Hip Mean 0.865 -0.6 1.3 Normal World Health Organization criteria for BMD impression classify patients as: Normal (T-score at or above -1.0), Osteopenia (T-score between -1.0 and -2.5), or Osteoporosis (T-score at or below -2.5). 10-year Fracture Risk(1): Major Osteoporotic Fracture 15% Hip Fracture 6.3% Reported Risk Factors: [place] (), Neck BMD=0.623, BMI=27.2, smoking (1) FRAX(R) Version 3.08. Fracture probability calculated for an untreated patient. Fracture probability may be lower if the patient has received treatment. Clinical Information Provided by Patient: Smokes Has used the following medications: Vitamin D Has the following medical conditions: Hysterectomy Patient maximum height was 65 Menopause Age: 56 No regular weight bearing exercise Does not regularly consume dairy products Drinks caffeinated beverages Onset of menses at age 13 Number of children 2 Impression: The patient has low bone mass, based on the Left Femoral Neck T-score. The patient has an estimated ten-year risk of hip fracture of 6.3% and an estimated ten-year risk of major fracture of 15%, based on the WHO FRAX algorithm. The patient has risk factors, including: smoking. Discussion: BONE DENSITY IS LOW AT ONE OR MORE SKELETAL SITES. THE PATIENT'S BMD AND CLINICAL RISK FACTORS CONTRIBUTE TO THIS PATIENT'S INCREASED RISK OF FRACTURE. This patient's lowest T-score is low at one or more skeletal sites. It meets the World Health Organization's (WHO) criteria for ?low bone mass? (T-score between -1.0 and -2.5). The patient's 10-year risk of hip fracture as calculated by FRAX exceeds the threshold where pharmacological therapy is recommended by the National Osteoporosis Foundation (NOF). However, all treatment decisions require clinical judgment and consideration of individual patient factors, including patient preferences, comorbidities, previous drug use, risk factors not captured in the FRAX model (e.g., frailty, falls, vitamin D deficiency, increased bone turnover, interval significant decline in bone density) and possible under or overestimation of fracture risk by FRAX. The patient should follow a healthful lifestyle (
== END ==
PROVIDERS: PCP Orthopaedic Surgery; Visit Provider Family Medicine
DX: M85.89 Other specified disorders of bone density and structure, multiple sites (principal); Z78.0 Asymptomatic menopausal state
CPT/HCPCS: 77080

== ENCOUNTER 2024-10-02 16:46 | Emergency (ER) | payer MEDICARE, SELFPAY ==
[2024-10-02 18:22] VITALS: BP 165/85; PULSE 85; RESP 16; TEMP 36.4; O2SAT 99
--- NOTE | 2024-10-02 19:24 | ED_ITS ---
HPI - URI/Sore Throat General Chief Complaint: Upper Respiratory Infection Stated Complaint: Ear Pain/Headache Time Seen by Provider: 10/02/24 19:10 Source: patient Mode of arrival: ambulatory Limitations: no limitations History of Present Illness HPI Narrative: 79 year old female who presents to [facility] care with day 3 complaints of cough, sore throat ear pain headaches and ling body aches with no present fever but states some fevers initially. Patient reports that she feels like she has been hit by a bus. Patient has been taking Mucinex and Tylenol for her symptoms. MD elicited complaint: fever, sore throat, rhinorrhea, nasal congestion and other (ear pain) Pertinent past history: COPD Onset (ago): day(s) (3) Severity: moderate Able to tolerate fluids by mouth: Yes Treatments prior to arrival: acetaminophen and other (Mucinex) Related Data Home Medications ?Medication ?Instructions ?Recorded ?Confirmed ?Last Taken ?Type lisinopril 10 mg tablet 10 mg PO DAILY 06/15/20 11/17/21 Unknown History Adult One Daily Multivitamin 1 tablet PO DAILY 11/17/21 11/17/21 Unknown History alprazolam 2 mg tablet 2 mg PO HS PRN Anxiety 11/17/21 11/17/21 Unknown History duloxetine 60 mg capsule,delayed 60 mg PO BID 11/17/21 11/17/21 Unknown History release multivit with minerals-iron 18 1 tablet PO DAILY 11/17/21 11/17/21 Unknown History mg-folic ac 400 mcg-vit K 25 mcg tablet (Adults Multivitamin) polyethylene glycol 3350 17 gram 17 g PO DAILY 11/17/21 11/17/21 Unknown History oral powder packet (Miralax) hyoscyamine sulfate 0.25 mg 0.25 mg PO QID PRN 09/06/23 Unknown History disintegrating tablet naltrexone 4.5 mg capsule mg PO 09/06/23 Unknown History tramadol 50 mg tablet 50 mg PO Q6H PRN 09/06/23 Unknown History carica papaya 1 tablet PO TID 10/17/23 Unknown History cyclosporine 0.05 % eye drops in a 1 drp EACH EYE Q12H 10/17/23 Unknown History dropperette (Restasis) erythromycin 250 mg tablet,delayed 500 mg PO Q6H 10/17/23 Unknown History release estradiol 0.01% (0.1 mg/gram) 2 g vaginal 2XW 10/17/23 Unknown History vaginal cream (Estrace) ondansetron 4 mg disintegrating 4 mg PO Q8H 10/17/23 Unknown History tablet pantoprazole 40 mg tablet,delayed 40 mg PO QAM 10/17/23 Unknown History release polyvinyl alcohol 0.6% eye drops drp ophthalmic (eye) 10/17/23 Unknown History rifaximin 550 mg tablet (Xifaxan) 550 mg PO BID 10/17/23 Unknown History Allergies Allergy/AdvReac Type Severity Reaction Status Date / Time lubiprostone Allergy Unknown Mental Verified 11/13/23 14:45 status change morphine Allergy Unknown Hallucinati Verified 11/13/23 14:45 ng pregabalin (From Lyrica) Allergy Unknown Zones out Verified 11/13/23 14:45 Sulfa (Sulfonamide Allergy Unknown Swelling Verified 11/13/23 14:45 Antibiotics) varenicline (From Chantix) Allergy Unknown Nausea Verified 11/13/23 14:45 linaclotide (From Linzess) Allergy mental Verified 11/13/23 14:45 status change sulfamethoxazole (From Allergy Swelling Verified 11/13/23 14:45 Septra) of Lip/Tongue/Throat trimethoprim (From Septra) Allergy Swelling Verified 11/13/23 14:45 of Lip/Tongue/Throat doxycycline Hyclate Allergy Unknown Hives Uncoded 09/06/23 14:06 varenicline tartrate Allergy Unknown nausea Uncoded 09/06/23 14:06 Review of Systems Review of Systems: CONSTITUTIONAL: Reports malaise, chills, sweats, or fever. EYES: Denies visual changes, redness, or discharge. ENT: Reports rhinorrhea, congestion, sinus pain,bilateral otalgia and scratchy sore throat. CARDIOVASCULAR: Denies chest pain, palpitations, or edema. RESPIRATORY: Reports cough.? Denies dyspnea. GASTROINTESTINAL: Denies abdominal pain, nausea, vomiting, diarrhea SKIN: Denies rash or itching. MUSCULOSKELETAL: Reports myalgia. NEUROLOGIC:Reports headache. All systems reviewed & are unremarkable except as noted in HPI and below PMFSH Past Medical History Medical History History of bruising easily History of stress test Spinal stenosis of lumbar region Hiatal hernia with GERD without esophagitis Dyslipidemia Hyperlipidemia Right kidney stone Tobacco use disorder, continuous COPD (chronic obstructive pulmonary disease) Essential hypertension Small intestinal bacterial overgrowth (SIBO) Irritable bowel syndrome Surgical History Surgical History History of fusion of cervical spine History of appendectomy History of tonsillectomy Status post cataract extraction of both eyes with insertion of intraocular lens History of colon resection Due to ?kinking? of her colon. 10 inches removed. History of left oophorectomy Family History Family History Mother , At 84 years of age Acute myocardial infarction Hypertension Social History Social History Social History: She has been since 2014. She has 2 adult daughters. She started smoking at the age of 20. She has smoked between 0.5 and 0.25 packs cigarettes per day since then. She denies any alcohol use. She denies any illicit substance use. Smoking status: Current every day smoker Tobacco type: cigarettes Alcohol intake: never Drinks per week: 0 Substance use: never Substance use type: does not use Do You Feel Safe in your Home?: Yes Lack of Transportation: No Lack of Food: Never True Current Housing: I Have Housing Concerned About Future Housing: No Difficulty Paying Gas/Electric Bills: No Difficulty Paying for Meds: No Currently Unemployed: No Education: Trade/Vocational Certificate Difficulty w/ Childcare or Family Care: No Living arrangements: alone Occupation/Education: retired Gender identity (if verbalized by the patient): Female Spiritual care concerns: No Agree to blood products: Yes Comments At time of signature, agree with nursing past medical, surgical, social and family history. There is no relevant family history pertinent to the presenting complaint Exam Narrative: GENERAL: Well-appearing, well-nourished, and in no acute distress. HEAD: Normocephalic EYES: PERRLA, conjunctivae clear ENT: Nares clear, turbinates edematous and erythematous, clear discharge. Mucous membranes moist. TM pearly alvarado with dull light reflex bilaterally; no tragal tenderness. Oropharynx erythematous without lesions. Tonsils not present and throat without exudate, no drooling, no hoarseness, no trismus, uvula midline.post nasal drainage NECK: Supple. No lymphadenopathy CHEST: Clear to auscultation, breath sounds equal. No wheezing, rhonchi, rales, or stridor. No respiratory distress, speaks in full sentences.dry cough,SAO2 99% on room air HEART: Regular rate and rhythm. No murmur heard. SKIN: Warm, dry, no rash. NEURO: Alert and oriented x3. PSYCH: Normal mood and affect Course Course Emergency Course: Patient is aware of diagnosis, understands and agrees to treatment plan.? Anticipatory guidance given.? Patient agrees to follow-up as directed and is a tijerina of reasons to seek care at the emergency department. Portions of this record may have been created with voice recognition software Level of Care: Express Care Visit Vital Signs Vital signs: Vital Signs Temperature 36.4 C 10/02/24 18:22 Pulse Rate 85 10/02/24 18:22 Respiratory Rate 16 10/02/24 18:22 Blood Pressure 165/85 H 10/02/24 18:22 Pulse Oximetry 99 10/02/24 18:22 Temperature 36.4 C 10/02/24 18:22 Pulse Rate 85 10/02/24 18:22 Respiratory Rate 16 10/02/24 18:22 Blood Pressure 165/85 H 10/02/24 18:22 Pulse Oximetry 99 10/02/24 18:22 Reviewed MDM - URI/Sore Throat MDM Narrative Medical decision making narrative: Differential diagnosis considered: Casas virus, strep pharyngitis, allergic rhinitis, upper respiratory tract infection, sinusitis, rhinosinusitis, nasopharyngitis. viral pharyngitis, otitis media, otitis externa, pneumonia, bronchitis, viral cough syndrome, viral syndrome, and influenza.? Exam findings show no acute concerns or changes; patient is non-toxic appearing and is in no distress.? Patient is appropriate for outpatient treatment and follow-up. Differential Diagnosis Differential diagnosis: Likely upper respiratory infection, otitis media, viral infection, influenza and other (COVID) Medical Records Attestation: I reviewed the patient's medical records. Lab Data Attestation: I reviewed the patient's lab results. Lab results narrative: Influenza A positive, Influenza B negative, COVID antigen negative Labs: Lab Results 10/02/24 Range/Units 18:22 POC Influenza A Ag Positive (Negative) POC Influenza B Ag Negative (Negative) POC SARS CoV-2 Ag Negative (Negative) reviewed Critical Care Time Critical Care Time Critical Care Time: No Discharge Plan Discharge Clinical Impression: Influenza A Patient Disposition: Home, Self-Care Condition: Stable Instructions: Influenza (ED) Additional Instructions: Increase fluids especially juices and water Asmi-dup-flbaqnb cough and cold medicine of your choice for your symptoms Tylenol or ibuprofen for any fever pain Zyrtec Claritin or Dinorah daily may include Coricidin brand decongestant May use your pain medication and nausea medication as needed heat to the face 20-30 minutes 4-6 times a day for pain Salt water gargles, throat lozenges or throat sprays as desired If your symptoms persist, change or worsen significantly before you can contact your personal physician then please, without delay, go to the emergency department for further evaluation. Follow-up with PCP in 7-10 days or sooner if needed Follow up with PCP soon in regards to your blood pressure which is elevated above threshold for referral. Blood pressure above 120/80 may indicate pre- hypertension. 165/85 you must be fever free for 24 hours without use of Tylenol or ibuprofen before she can be around others do recommend mask for the 1st 5 days you are around others Patient Language: Venezuelan Prescriptions: No Action hyoscyamine sulfate 0.25 mg tablet,disintegrating 0.25 mg PO QID PRN naltrexone 4.5 mg capsule PO tramadol 50 mg tablet 50 mg PO Q6H PRN carica papaya Tablet 1 tablet PO TID Rx Instructions: administer with meals erythromycin 250 mg tablet,delayed release (DR/EC) 500 mg PO Q6H estradiol [Estrace] 0.01 % (0.1 mg/gram) cream 2 g vaginal 2XW Rx Instructions: for 7 days pantoprazole 40 mg tablet,delayed release (DR/EC) 40 mg PO QAM polyvinyl alcohol 0.6 % drops ophthalmic (eye) Xifaxan 550 mg tablet 550 mg PO BID cyclosporine [Restasis] 0.05 % dropperette 1 drp EACH EYE Q12H ondansetron 4 mg tablet,disintegrating 4 mg PO Q8H Adult One Daily Multivitamin 1 tablet PO DAILY polyethylene glycol 3350 [Miralax] 17 gram Powder In Packet 17 g PO DAILY alprazolam 2 mg tablet 2 mg PO HS PRN (Reason: Anxiety) duloxetine 60 mg capsule,delayed release(DR/EC) 60 mg PO BID Adults Multivitamin 18 mg iron-400 mcg-25 mcg Tablet 1 tablet PO DAILY lisinopril 10 mg tablet 10 mg PO DAILY Follow-up/Referrals: PHYSICIAN,HYDROMETEOROLOGICAL TECHNICIAN [Primary Care Provider] - Time of Disposition: 19:38 Quality [place] Coma Scale Eyes: Open Verbal: Oriented and Alert Motor: Follows Commands Mckayla Coma Total Score: 15
[2024-10-02 19:45] LABS: EDCOVIDSCREEN Negative (Negative); EDINFLUASCREEN Positive (Negative); EDINFLUBSCREEN Negative (Negative)
== END 2024-10-02 19:40 | disposition home or self-care (01) ==
PROVIDERS: Emergency Provider Registered Nurse
DX: J10.1 Influenza due to other identified influenza virus with other respiratory manifestations (principal); J44.9 Chronic obstructive pulmonary disease, unspecified; E78.5 Hyperlipidemia, unspecified; I10 Essential (primary) hypertension; F17.210 Nicotine dependence, cigarettes, uncomplicated; Z20.822 Contact with and (suspected) exposure to COVID-19
CPT/HCPCS: 87426; 87804; 99213; G0463

== ENCOUNTER 2025-03-02 10:07 | Emergency (ER) | payer MEDICARE, SELFPAY ==
--- NOTE | ~2025-03-02 | CT_ITS ---
History: Fall PROCEDURE: CT cervical spine without intravenous contrast. COMPARISON: None. Reference is made to MRI examination of the cervical spine dated 07/15/2023. Reference is also made to a CTA of the chest dated 11/16/2021 TECHNIQUE: Multiple contiguous axial images of the cervical spine were performed without the administration of i ntravenous contrast. DLP: 305 mGy-cm FINDINGS: Anterior fixation at the level of C4, C5, and C6. Heterogeneous appearance of the bone mineralization , an interval change from the 2021 examination. This is most prominent within the right lamina of C5, with well-circumscribed lucency. No acute fractures are present. Patchy groundglass opacification detected within the bilateral lung apices. 3 mm nodule within the left upper lobe (axial series, image 347). This is an interval change from the 11/16/2021 examination Otherwise, the bilateral lung apices are clear. No soft tissue abnormality is present. The airway is patent. Impression: Anterior fixation at the levels of C4, C5 and C6 without acute fracture. Lucency within the right lamina of C5, an interval change from 2021. 3 mm soft tissue nodule within the left upper lobe, also an interval change from which dedicated nonc ontrast enhanced CT examination of the chest is suggested, if the patient is clinically able. Reviewed, dictated and finalized at location A. Impression: Anterior fixation at the levels of C4, C5 and C6 without acute fracture. Lucency within the right lamina of C5, an interval change from 2021. 3 mm soft tissue nodule within the left upper lobe, also an interval change fro m which dedicated noncontrast enhanced CT examination of the chest is suggested , if the patient is clinically able.
--- NOTE | ~2025-03-02 | CT_ITS ---
History: Fall PROCEDURE: CT head without contrast. COMPARISON: None. Reference is made to an MRI examination of the brain dated 10/16/2022 TECHNIQUE: Axial imaging of the head performed from the skull base to the vertex without IV contrast. Sagittal a nd coronal reformations obtained. DLP: 605 mGy-cm FINDINGS: The ventricles are enlarged. The dilatation of the ventricles is proportional to the degree of sulcal prominence, not uncommon in the senescent brain. Decreased attenuation is identified within the periventricular white matter, likely secondary to micr ovascular ischemic disease, in a patient of this age. There is no mass, mass effect or midline shift. There is no abnormal extra-axial fluid collection or intracranial hemorrhage. Scattered opacification of the bilateral ethmoid sinuses. Remaining paranasal sinuses are clear. The mastoid air cells are well aerated. No acute displaced fractures within the overlying cranium. Impression: No acute intracranial hemorrhage or suspicious mass effect. Inflammatory sinus disease. Reviewed, dictated and finalized at location A. Impression: No acute intracranial hemorrhage or suspicious mass effect. Inflammatory sinus disease.
[2025-03-02 10:08] VITALS: BP 165/92; PULSE 75; RESP 18; TEMP 36.6; O2SAT 98
--- NOTE | 2025-03-02 10:16 | ECG_ITS ---
Test Date: 2025-03-02 10:45:38 Measurements Intervals [place] Rate: 76 P: 9 [place]: 187 QRS: -16 QRSD: 85 T: 5 QT: 354 QTc: 399 Interpretive Statements SINUS RHYTHM LOW QRS VOLTAGE IN PRECORDIAL LEADS [QRS DEFLECTION < 1.0 mV IN CHEST LEADS] VOLTAGE CRITERIA FOR LVH [MEETS CRITERIA IN ONE OF: R(aVL), S(V1), R(V5), R(V5/V6)+S(V1)] POSSIBLE ANTERIOR MYOCARDIAL INFARCTION , OF INDETERMINATE AGE [30 ms Q WAVE IN V3/V4, OR R < 0.2 mV IN V4] No previous ECG available for comparison Electronically Signed On 03-02-2025 14:25:08 CDT by Rob Bro M.D.
--- OUTSIDE RECORDS SUMMARY | 2025-03-02 10:18 | XMS_ITS | Encounter Summary ---
Author Organization [facility] Address [address] [place] [address] Care Team Providers Care Clarification Operator Name Role Phone Mary Cruz MD Primary Care Provider [phone] Encounter Details Date Type Department Care Team (Late st Contact Info) Description 01/06/2007 Orders Only [facility] Internal Medicine Medical [place] [facility] [address] [facility] [address] [address] Mary Cruz MD [address] [place] [address] [address] [place] [address] Social History Tobacco Use Types Packs/Day Years Used Date Smoking Tobacco: Never Assessed Comments Unknown Sex and Gender Information Value Date Recorded Sex Assigned at Not on file 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 [address] D.O.B: 1945 SSN: [id number] Parent/Guardian if applicable: Patient Insurance: [employer] [facility] ID#: [id number] Group#: ORDER(S) #: [id number] BEST TO CALL HOME. TEST PRIORITY: pt would like to have done in jul ORDERING PHYSICIAN: MARY CRUZ MD OFFICE MUSIC CATALOGUER & PHONE: Lyudmila Ward ORDER PRINTED BY: Faby Rivera K FOR SCHEDULING USE ONLY: FIRST ATTEMPT Date:JAN 07, 2007 Faby Rivera K 07:55 p First Attempt :. Spoke with Patient. SHE DOES NOT WANT TO SCHEDULE TIL JUL. SECOND ATTEMPT: Date:JAN 21, 2007 Faby Rivera K 07:41 p Second Attempt:. Spoke with Patient. TEST SCHEDULE [facility]. APPOINTMENT DATE : 07/14/2007 ( 9:00 AM) The appointment was scheduled by Faby Rivera K at [phone] Pre-authorization number: BC/BS [place] FINAL ACTION Follow up completed. * Mary Cruz MD - 02/26/2008 1:32 PM CDT BLOOD PRESSURE: 114/86 Right Arm Sitting TEMPERATURE: 98??f Oral PULSE: 76 Right Radial, Regular RESPIRATIONS: 16 WEIGHT: 147lbs NURSE NAME: Chaim Finney I ALLERGIES: Allergies are as listed. MEDICATIONS: Medication list current. CHIEF COMPLAINT Here for follow up evaluation.on elevated blood pressure HISTORY: HISTORY: 477.8-ALLERGIC RHINITIS The allergic rhinitis symptoms are stable. 796.2-BLOOD PRESSURE ELEVATED W/O DX OF HTN The blood pressure readings taken outside the office since the last visit are as follows: the systolic range has been 120's. The diastolic range has been 70's. CURRENT PROBLEM LIST: 272.4 HYPERLIPIDEMIA 305.1 TOBACCO ABUSE 461.9 SINUSITIS UNSPECIFIED 466.0 BRONCHITIS ACUTE 477.8 ALLERGIC RHINITIS 786.07 WHEEZING 796.2 BLOOD PRESSURE ELEVATED W/O DX OF HTN CURRENT MEDICATION LIST: CENTRUM SILVER ORAL TABLET, 1 Every Day CALTRATE 600 PLUS-VIT D ORAL TABLET 600-200 MG-UNIT, 1 Every Day VITAMIN E COMPLETE ORAL CAPSULE CONVENTIONAL, 1 Every Day CITRACAL ORAL TABLET 950 MG, 6 Every Day BABY ASPIRIN ORAL TABLET CHEWABLE 81 MG, 1 three times weekly SINGULAIR ORAL TABLET 10 MG, 1 Every Day ZYRTEC ORAL TABLET 10 MG, 1 Every Day At Bedtime LIPITOR ORAL TABLET 10 MG, 1 Every Day CURRENT ALLERGY LIST: DORYX FIORINAL SEPTRA ROS: GENERAL: Normal activity and energy level, no change in appetite. No major weight gain or loss. No malaise, chills, fever, diaphoresis. CARDIAC: No chest pain, palpitations, orthopnea, dyspnea on exertion, or paroxysmal nocturnal dyspnea. RESPIRATORY: No dyspnea, cough, hemoptysis or wheezing. PHYSICAL EXAMINATION: CONSTITUTIONAL: GENERAL APPEARANCE: Healthy appearing patient in no distress. NECK/THYROID: Trachea midline. No thyroid enlargement, tenderness, or mass. No supraclavicular or cervical adenopathy. RESPIRATORY: Clear to auscultation and percussion. Normal respiratory effort. CARDIOVASCULAR: CARDIAC: Regular rhythm. No murmurs, rubs, or gallops. ARTERIAL: No aortic bruits. EDEMA/VARICOSITIES OF EXTREMITIES: No edema or varicosities. PSYCHIATRIC: Judgment appropriate. Oriented. Normal memory. Mood and affect appropriate. ASSESSMENT/PLAN: 272.4-HYPERLIPIDEMIA ASSESSMENT: Will not change medication, continue to monitor for complications. Will check laboratory. MEDICATIONS: LIPITOR ORAL TABLET 10 MG, 1 Every Day, 30 Dispensed, 11 Fills, 30 Duration/Days Supply, status: CONTINUED, 01/06/2007. LAB ORDERS: Order number: [id number] Test Ordered: ALT 1294 Order number: [id number] Test Ordered: BASIC METABOLIC PANEL & GFR 1607 Order number: [id number] Test Ordered: TSH (REFLEX FREE T4/FREE T3) 1727 Order number: [id number] Test Ordered: LIPID PANEL 1078 477.8-ALLERGIC RHINITIS ASSESSMENT: The patient's allergic rhinitis continues to remain stable. Will not change medication,continue to monitor for complications. MEDICATIONS: ZYRTEC ORAL TABLET 10 MG, 1 Every Day At Bedtime, 30 Dispensed, 11 Fills, 30 Duration/Days Supply, status: CONTINUED, 01/06/2007. CITRACAL ORAL TABLET 950 MG, 6 Every Day, 540 Dispensed, status: NEW PRESCRIPTION, 07/22/2006. 796.2-BLOOD PRESSURE ELEVATED W/O DX OF HTN has been good lately, continue to follow. V82.81-SPECIAL SCREENING FOR OTHER CONDITIONS was borderline low in 2001. No FH of OP LAB ORDERS: Order number: [id number] Test Ordered: BONE DENSITY (HIP & SPINE) HEALTH MAINTENANCE: LAST PAP DATE: 02/2006. LAST MAMMOGRAM DATE: 08/2006. LAST TD: discuss RETURN VISIT : Patient instructed to return in 6 months. Electronically Signed by: Mary Cruz MD on Saturday, January 06, 2007 documented in this encounter Plan of Treatment Not on file documented as of this encounter Visit Diagnoses Not on filedocumented in this encounter Care Teams Clarification Operator Relationship Specialty Start Date End Date Mary Cruz MD [address] [place] [phone] PCP - General 01/31/06 05/05/14 documented as of this encounter
--- OUTSIDE RECORDS SUMMARY | 2025-03-02 10:18 | XMS_ITS | Encounter Summary ---
Author Organization [facility] Address 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
--- OUTSIDE RECORDS SUMMARY | 2025-03-02 10:18 | XMS_ITS | Encounter Summary ---
Author Organization [facility] Address [address] [place] [address] Care Team Providers Care Voip Network Technician Name Role Phone Theresa Hernadez MD Primary Care Provider [phone] Encounter Details Date Type Department Care Team (Late st Contact Info) Description 01/19/[address] 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
--- OUTSIDE RECORDS SUMMARY | 2025-03-02 10:18 | XMS_ITS | Encounter Summary ---
Author Organization [facility] Address 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
--- OUTSIDE RECORDS SUMMARY | 2025-03-02 10:18 | XMS_ITS | Encounter Summary ---
Author Organization [facility] Address [address] [place] [address] Care Team Providers Care Umbrella Supervisor Name Role Phone Chon Schuler MD Primary Care Provider + Montserrat Shah NP Unavailable [phone] Jose A Barry MD Unavailable [phone] [facility] Unavailable CorreaMeg barahona MD Unavailable [phone] Megan Hernandez DO Unavailable [phone] Sabina BARNEY MD, Robert J. Unavailable Ric De La Garza MD Unavailable [phone] Rosendo Jarrett MD Unavailable Cade Monk MD Primary Care Provider [phone] Chon Schuler MD Primary Care Provider + Cade Monk MD Primary Care Provider [phone] Raza Houston MD Unavailable [phone] Shaan Varela LPN Unavailable [phone] Ina Nelson MA Unavailable Unavailable Jazmin Alex MA Unavailable Encounter Details Date Type Department Care Team (Late st Contact Info) Description 03/16/2020 Telephone [facility] ([facility]) [address] [place] [address] Kiah Flores Social History Tobacco Use Types Packs/Day Years Used Date Smoking Tobacco: Every Day Cigarettes 0.5 30 Started: 03/25/1989; Last attempted to quit: 03/25/2019 Smokeless Tobacco: Never Comments:Quit 11/24 Alcohol Use Standard Drinks/Week Comments No 0 (1 standard drink = 0.6 oz pur e alcohol) PHQ-2 Answer Date Recorded PHQ-2 Total Score (If total score is 3 or more points, staff should administer the PHQ-9) 0 02/19/2020 Comments Unknown Sex and Gender Information Value Date Recorded Sex Assigned at Not on file 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 Gender Identity Not on file Sexual Orientation Not on file documented as of this encounter Plan of Treatment Not on file documented as of this encounter Visit Diagnoses Not on filedocumented in this encounter Care Teams Umbrella Supervisor Relationship Specialty Start Date End Date Chon Schuler MD [facility] [address] [place] [address] PCP - General 02/11/17 07/18/21 Cade Monk MD [address] [facility] [place] [address] PCP - General Family Medicine 07/19/21 07/31/21 hCon Schuler MD [address] [place], [place] [address]HOSSEIN L[place] [place] [address] PCP - General 08/01/21 08/03/21 Cade Monk MD [address] [facility] [place] [address] PCP - General Family Medicine 08/04/21 Montserrat Shah, WAYNE [facility]0 [address] [facility] [address] [place] [address] [address] Nurse Practitioner Surgery 03/18/18 Jose A Barry MD [address] [place], [place] [address]HOSSEIN [place] [address] [address] Referring Physician Neurosurgery 03/18/18 Omer Capellan MD PhD [address] [address] Referring Physician Neurology 03/18/18 Meg Correa MD [address] [address] Referring Physician Urology 03/18/18 Megan Hernandez DO [address] [facility] [place] [address] Consulting Physician Obstetrics and Gynecology 03/19/18 Ric Muhammad III, MD [address] [facility] [place] [address] Referring Physician Neurosurgery 01/21/19 Ric De La Garza MD [address] [facility] [place] [address] Consulting Physician Gastroenterology 02/14/19 04/09/21 Rosendo Jarrett MD [address] [facility] [place] [address] Consulting Physician Gastroenterology 08/06/20 Raza Houston MD [address] [place] [address] Consulting Physician Neurology 06/16/22 Shaan Varela LPN [address] [place] [address] [address] [place] [address] ACO Care Plant Operator/Shift Supervisor 07/09/22 Ina Nelson MA [address] [place] [address] [address] [place] [address] ACO Care Plant Operator/Shift Supervisor 01/18/23 01/19/23 Jazmin Alex MA [address] [place] [address] [address] [place] [address] ACO Care Plant Operator/Shift Supervisor 06/02/24 06/02/24 documented as of this encounter
--- OUTSIDE RECORDS SUMMARY | 2025-03-02 10:18 | XMS_ITS | Encounter Summary ---
Author Organization [facility] Address [address] [place] [address] Care Team Providers Care Contract Sheltered Workshop Supervisor Name Role Phone Theresa Hernadez MD Primary Care Provider [phone] Encounter Details Date Type Department Care Team (Late st Contact Info) Description 08/22/2001 Outpatient Historical [facility] MRI DEPT Syed Bucio MD 121 [facility] [address] [place] [address] ABDOMINAL PAIN UNSPEC SITE (Primary Dx) Social History Tobacco Use Types Packs/Day Years Used Date Smoking Tobacco: Never Assessed Comments Unknown Sex and Gender Information Value Date Recorded Sex Assigned at Not on file 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
--- OUTSIDE RECORDS SUMMARY | 2025-03-02 10:18 | XMS_ITS | Encounter Summary ---
Author Organization [facility] Address [address] [place] [address] Care Team Providers Care Sales And Service Change Leader Name Role Phone Theresa Hernadez MD Primary Care Provider [phone] Encounter Details Date Type Department Care Team (Late st Contact Info) Description 07/22/2006 Orders Only [facility] Internal Medicine Medical [place] A [place] [address] [facility] [address] [address] Jenaro Flores MD [address] [facility] [address] [place], [place] [id number] Social History Tobacco Use Types Packs/Day Years Used Date Smoking Tobacco: Never Assessed Comments Unknown Sex and Gender Information Value Date Recorded Sex Assigned at Not on file 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
--- OUTSIDE RECORDS SUMMARY | 2025-03-02 10:18 | XMS_ITS | Encounter Summary ---
Author Organization [facility] Address [address] [place] [address] Care Team Providers Care Air Conditioning Unit Tester Name Role Phone Theresa Hernadez MD Primary Care Provider [phone] Encounter Details Date Type Department Care Team (Late st Contact Info) Description 01/21/2006 Outpatient Historical [facility] Internal Medicine Medical [place] A [facility] [address] [facility] [address] [address] Theresa Hernadez MD [facility]5 [facility] [address] [place] [address] Social History Tobacco Use Types Packs/Day Years Used Date Smoking Tobacco: Never Assessed Comments Unknown Sex and Gender Information Value Date Recorded Sex Assigned at Not on file 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 Gender Identity Not on file Sexual Orientation Not on file documented as of this encounter Last Filed Vital Signs Vital Sign Reading Time Taken Comments Blood Pressure 130/90 01/21/2006 10:00 AM CDT Pulse 76 01/21/2006 10:00 AM CDT Temperature 36.8 C (98.3 F) 01/21/2006 10:00 AM CDT Respiratory Rate - - Oxygen Saturation - - Inhaled Oxygen Concentration - - Weight 66.2 kg (146 lb) 01/21/2006 10:00 AM CDT Height 166.4 cm (5' 5.5) 01/21/2006 10:00 AM CD T Body Mass Index 23.93 01/21/2006 10:00 AM CDT documented in this encounter Plan of Treatment Not on file documented as of this encounter Visit Diagnoses Not on filedocumented in this encounter Care Teams Air Conditioning Unit Tester Relationship Specialty Start Date End Date Theresa Hernadez MD [facility] [address] PCP - General 01/31/06 05/05/14 documented as of this encounter
--- OUTSIDE RECORDS SUMMARY | 2025-03-02 10:18 | XMS_ITS | Encounter Summary ---
Author Organization [facility] Address [address] [place] [address] Care Team Providers Care Knotting Machine Operator Name Role Phone Theresa Hernadez MD Primary Care Provider [phone] Encounter Details Date Type Department Care Team (Late st Contact Info) Description 09/19/2007 Orders Only [facility] Internal Medicine Medical [place] A [facility] [address] [facility] [address] [address] Theresa Hernadez MD [address] [place] [address] [address] [place] [address] Social History Tobacco Use Types Packs/Day Years Used Date Smoking Tobacco: Never Assessed Comments Unknown Sex and Gender Information Value Date Recorded Sex Assigned at Not on file 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 ALTERNATIVE PHONE NUMBER: [phone] WHO CALLED: CURRENT ALLERGY LIST: AMOXICILLIN CODEINE [facility] NUMBER: [phone] PROBLEMS: 09/19/07 Spoke with patient and she says that ever since she's been on the cymbalta she has been severely constipated. She says that she has IBS but this is a much worse feeling. She has taken miralax and stool softeners but nothing has helped. SECTION 1: DOCTOR`S RESPONSE: atiya 09/19/07 at 02:22 pm I was hoping cymbalta would help her IBS. Is mood any better? FINAL ACTION: libby 09/19/07 at 03:02 pm Spoke with patient 09/19/07 at 03:03 pm. SECTION 2: Mood is much better, Was talking with pharmacist and he suggested a script of lactulose solution to help the constipation. Pt wants to know your thoughts? Has hemorrhoid really bad, has been using OTC cream. nm DOCTOR`S RESPONSE: atiya 09/19/07 at 03:38 pm ok to try lactulose then- that is safe. MEDICATIONS: LACTULOSE ORAL SOLUTION 10 GM/15ML BOTTLES, 15cc qid prn, 1 Dispensed, 6 Fills, status: NEW PRESCRIPTION, 09/19/2007. FINAL ACTION: amando 09/19/07 at 03:51 pm Spoke with patient 09/19/07 at 03:51 pm. Called pharmacy at 09/19/07 at 03:51 pm. documented in this encounter Plan of Treatment Not on file documented as of this encounter Visit Diagnoses Not on filedocumented in this encounter Care Teams Knotting Machine Operator Relationship Specialty Start Date End Date Theresa Hernadez MD [address] [place] [phone] PCP - General 01/31/06 05/05/14 documented as of this encounter
--- OUTSIDE RECORDS SUMMARY | 2025-03-02 10:18 | XMS_ITS | Encounter Summary ---
Author Organization [facility] Address [address] [place] [address] Care Team Providers Care Pipe Smoker Machine Operator Name Role Phone Theresa Hernadez MD Primary Care Provider [phone] Encounter Details Date Type Department Care Team (Latest Contact Info) Description 08/07/2001 Outpatient Historical [facility] Syed Cardona MD [address] [facility] [address] [place] [address] ABDOMINAL TENDERNESS UNSP SITE (Primary Dx) Social History Tobacco Use Types Packs/Day Years Used Date Smoking Tobacco: Never Assessed Comments Unknown Sex and Gender Information Value Date Recorded Sex Assigned at Not on file 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
--- OUTSIDE RECORDS SUMMARY | 2025-03-02 10:18 | XMS_ITS | Encounter Summary ---
Author Organization [facility] Address [address] [place] [address] Care Team Providers Care Hvac Commercial Salesperson Name Role Phone Theresa Hernadez MD Primary Care Provider [phone] Encounter Details Date Type Department Care Team (Late st Contact Info) Description 01/06/2007 Outpatient Historical [facility] Internal Medicine Medical [place] A [facility] [address] [facility] [address] [address] Theresa Hernadez MD [facility]5 [facility] [address] [place] [address] Social History Tobacco Use Types Packs/Day Years Used Date Smoking Tobacco: Never Assessed Comments Unknown Sex and Gender Information Value Date Recorded Sex Assigned at Not on file 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 Gender Identity Not on file Sexual Orientation Not on file documented as of this encounter Last Filed Vital Signs Vital Sign Reading Time Taken Comments Blood Pressure 114/86 01/06/2007 10:00 AM CDT Pulse 76 01/06/2007 10:00 AM CDT Temperature 36.7 C (98 F) 01/06/2007 10:00 AM CDT Respiratory Rate 16 01/06/2007 10:00 AM CDT Oxygen Saturation - - Inhaled Oxygen Concentration - - Weight 66.7 kg (147 lb) 01/06/2007 10:00 AM CDT Height - - Body Mass Index 24.09 01/21/2006 10:00 AM CDT documented in this encounter Plan of Treatment Not on file documented as of this encounter Visit Diagnoses Not on filedocumented in this encounter Care Teams Hvac Commercial Salesperson Relationship Specialty Start Date End Date Theresa Hernadez MD [address] [facility] [address] [place] [phone] PCP - General 01/31/06 05/05/14 documented as of this encounter
--- OUTSIDE RECORDS SUMMARY | 2025-03-02 10:18 | XMS_ITS | Encounter Summary ---
Author Organization [facility] Address 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
--- OUTSIDE RECORDS SUMMARY | 2025-03-02 10:18 | XMS_ITS | Encounter Summary ---
Author Organization [facility] Address [address] [place] [address] Care Team Providers Care Drying Oven Tender Name Role Phone Theresa Hernadez MD Primary Care Provider [phone] Encounter Details Date Type Department Care Team (Late st Contact Info) Description 02/17/[address] 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 DIRECTOR [place] Gender Identity Not on file Sexual Orientation Not on file documented as of this encounter Last Filed Vital Signs Vital Sign Reading Time Taken Comments Blood Pressure 140/100 02/17/2007 3:30 PM CDT Pulse 100 02/17/2007 3:30 PM CDT Temperature 37.6 C (99.6 F) 02/17/2007 3:30 PM CDT Respiratory Rate - - Oxygen Saturation - - Inhaled Oxygen Concentration - - Weight 59.9 kg (132 lb) 02/17/2007 3:30 PM CDT Height - - Body Mass Index 21.63 01/21/2006 10:00 AM CDT documented in this encounter Plan of Treatment Not on file documented as of this encounter Visit Diagnoses Not on filedocumented in this encounter Care Teams Drying Oven Tender Relationship Specialty Start Date End Date Theresa Hernadez MD [address] [phone] PCP - General 01/31/06 05/05/14 documented as of this encounter
--- OUTSIDE RECORDS SUMMARY | 2025-03-02 10:18 | XMS_ITS | Encounter Summary ---
Author Organization [facility] Address [address] [place] [address] Care Team Providers Care Building Contractor Name Role Phone Theresa Hernadez MD Primary Care Provider [phone] Encounter Details Date Type Department Care Team (Late st Contact Info) Description 07/22/2006 Outpatient Historical [facility] Internal Medicine Medical [place] A [facility] [address] [facility] [address] [address] Theresa Hernadez MD [address] [place] [address] [address] [place] [address] Social History Tobacco Use Types Packs/Day Years Used Date Smoking Tobacco: Never Assessed Comments Unknown Sex and Gender Information Value Date Recorded Sex Assigned at Not on file 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 Gender Identity Not on file Sexual Orientation Not on file documented as of this encounter Last Filed Vital Signs Vital Sign Reading Time Taken Comments Blood Pressure 136/94 07/22/2006 10:00 AM CDT Pulse 80 07/22/2006 10:00 AM CDT Temperature 36.8 C (98.2 F) 07/22/2006 10:00 AM CDT Respiratory Rate 20 07/22/2006 10:00 AM CDT Oxygen Saturation - - Inhaled Oxygen Concentration - - Weight 67.6 kg (149 lb) 07/22/2006 10:00 AM CDT Height - - Body Mass Index 24.42 01/21/2006 10:00 AM CDT documented in this encounter Plan of Treatment Not on file documented as of this encounter Visit Diagnoses Not on filedocumented in this encounter Care Teams Building Contractor Relationship Specialty Start Date End Date Theresa Hernadez MD [address] [address] PCP - General 01/31/06 05/05/14 documented as of this encounter
--- OUTSIDE RECORDS SUMMARY | 2025-03-02 10:18 | XMS_ITS | Patient Health Record ---
Author Organization [email or web address] Address [address] [facility] [address] [address] Care Team Providers Care Director Sales Name Role Phone Ganga HAWKINS, Chon Primary Care Provider Unav Syed Thomas Unavailable [phone] Reason For Referral No Information Plan Of Treatment No Information Insurance Providers Payer Name Payer Address Payer Phone Subscriber Number Group Number Insured Name Patient Relationship to Insured Coverage Start Date Coverage End Date Medicare E2 [address] [address] [place] [address] [phone] [id number] Rita Hilario Self - patient is the insured [employer] [address] [address] [place] [address] [phone] [id number] Rita Hilario Self - patient is the insured
--- OUTSIDE RECORDS SUMMARY | 2025-03-02 10:18 | XMS_ITS | Encounter Summary ---
Author Organization [facility] Address [address] [place] [address] Care Team Providers Care Lead Cook Name Role Phone Theresa Hernadez MD Primary Care Provider [phone] Encounter Details Date Type Department Care Team (Late st Contact Info) Description 01/27/2008 Outpatient Historical [facility] Internal Medicine Medical [place] A [facility] [address] [facility] [address] [address] Theresa Hernadez MD [address] [address] Social History Tobacco Use Types Packs/Day Years Used Date Smoking Tobacco: Never Assessed Comments Unknown Sex and Gender Information Value Date Recorded Sex Assigned at Not on file 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
--- OUTSIDE RECORDS SUMMARY | 2025-03-02 10:18 | XMS_ITS | Encounter Summary ---
Author Organization [facility] Address [address] [place] [address] Care Team Providers Care Form Setter Metal Road Forms Name Role Phone Theresa Hernadez MD Primary Care Provider [phone] Encounter Details Date Type Department Care Team (Late st Contact Info) Description 07/14/2007 Orders Only [facility] Internal Medicine Medical [place] [facility] [address] [facility] [address] [address] Theresa Hernadez MD [facility]5 [facility] [address] [place] [address] Social History Tobacco Use Types Packs/Day Years Used Date Smoking Tobacco: Never Assessed Comments Unknown Sex and Gender Information Value Date Recorded Sex Assigned at Not on file Legal Sex Female 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 Gender Identity Not on file Sexual Orientation Not on file documented as of this encounter Progress Notes * Theresa Hernadez MD - 02/20/2008 11:03 AM CDT WHO TOOK THE CALL: Theresa Hernadez L TIME:05:24 pm BONE DENSITY: back normal Hip mild osteopenia- Contine ca/vit D twice daily and repeat in 2 years SPECIALTY REFERRAL: message to / ep /07-16-07 Electronically Signed by: Roxana Clemente on Saturday, July 16, 2007 * Theresa Hernadez MD - 02/20/2008 11:02 AM CDT BLOOD PRESSURE: 140/80 Right Arm Sitting RESPIRATIONS: 16 PULSE: 64 Right Radial, Regular TEMPERATURE: 99.1??f Oral WEIGHT: 140lbs NURSE NAME: France Castillo ALLERGIES: Allergies are as listed. MEDICATIONS: Medication list current. CHIEF COMPLAINT Here for follow up evaluation. HISTORY: HISTORY: 272.4-HYPERLIPIDEMIA The patient is tolerating the medications. The patient is compliant with the low saturated fat diet. The patient`s weight is the same. 796.2-BLOOD PRESSURE ELEVATED W/O DX OF HTN The blood pressure readings taken outside the office since the last visit are as follows: the systolic range has been 140's to 130's. The patient`s exercise has decreased. The patient is compliant with diet. The patient denies chest pain, shortness of breath, dyspnea on exertion, pedal edema, or headache. Currently the patient is off all medication. CURRENT PROBLEM LIST: 272.4 HYPERLIPIDEMIA 305.1 TOBACCO ABUSE 461.9 SINUSITIS UNSPECIFIED 466.0 BRONCHITIS ACUTE 477.8 ALLERGIC RHINITIS 786.07 WHEEZING 796.2 BLOOD PRESSURE ELEVATED W/O DX OF HTN V82.81 SPECIAL SCREENING FOR OTHER CONDITIONS CURRENT MEDICATION LIST: CENTRUM SILVER ORAL TABLET, 1 Every Day CALTRATE 600 PLUS-VIT D ORAL TABLET 600-200 MG-UNIT, 1 Every Day VITAMIN E COMPLETE ORAL CAPSULE CONVENTIONAL, 1 Every Day CITRACAL ORAL TABLET 950 MG, 6 Every Day BABY ASPIRIN ORAL TABLET CHEWABLE 81 MG, 1 three times weekly RHINOCORT AQUA NASAL SUSPENSION 32 MCG/ACT, 1 Every Day LIPITOR ORAL TABLET 10 MG, 1 Every Day SINGULAIR ORAL TABLET 10 MG, 1 Every Day ZYRTEC ORAL TABLET 10 MG, 1 Every Day At Bedtime CURRENT ALLERGY LIST: DORYX FIORINAL SEPTRA ROS: GENERAL: Normal activity and energy level, no change in appetite. No major weight gain or loss. No malaise, chills, fever, diaphoresis. ENT: RINGING IN THE EARS NOTED. CARDIAC: No chest pain, palpitations, orthopnea, dyspnea on exertion, or paroxysmal nocturnal dyspnea. RESPIRATORY: No dyspnea, cough, hemoptysis or wheezing. NEUROLOGIC: No lightheadedness. PHYSICAL EXAMINATION: CONSTITUTIONAL: GENERAL APPEARANCE: Healthy appearing patient in no distress. EARS, NOSE, MOUTH AND THROAT: EARS: Tympanic membranes shiny without retraction. Canals unremarkable. Hearing grossly normal. RESPIRATORY: Clear to auscultation and percussion. Normal respiratory effort. CARDIOVASCULAR: CARDIAC: Regular rhythm. No murmurs, rubs, or gallops. EDEMA/VARICOSITIES OF EXTREMITIES: No edema or varicosities. PSYCHIATRIC: Judgment appropriate. Oriented. Normal memory. Mood and affect appropriate. ASSESSMENT/PLAN: 272.4-HYPERLIPIDEMIA ASSESSMENT: Will not change medication, continue to monitor for complications. The patient's most recent labs reviewed. The patient's thyroid status is being followed. Regular exercise was encouraged. MEDICATIONS: LIPITOR ORAL TABLET 10 MG, 1 Every Day At Bedtime, 90 Dispensed, 30 Duration/Days Supply, status: NEW PRESCRIPTION, 07/14/2007. 401.9-HYPERTENSION, UNSPECIFIED ASSESSMENT: Will start medication for better control. MEDICATIONS: LISINOPRIL ORAL TABLET 5 MG, 1 Every Day, 90 Dispensed, 3 Fills, status: NEW PRESCRIPTION, 07/14/2007. V04.81-NEED FOR VACCINE INFLUENZA LAB ORDERS: Order number: [id number] Test Ordered: IMMUNIZATION ADMIN SINGLE [id number] Order number: [id number] Test Ordered: INJ-INFLUENZA ADULT [id number] RETURN VISIT : Patient instructed to return in 6 months. Electronically Signed by: Theresa Hernadez MD on Saturday, July 14, 2007 documented in this encounter Plan of Treatment Not on file documented as of this encounter Visit Diagnoses Not on filedocumented in this encounter Care Teams Form Setter Metal Road Forms Relationship Specialty Start Date End Date Theresa Hernadez MD [address] [place] [phone] PCP - General 01/31/06 05/05/14 documented as of this encounter
--- OUTSIDE RECORDS SUMMARY | 2025-03-02 10:18 | XMS_ITS | Encounter Summary ---
Author Organization [facility] Address [address] [place] [address] Care Team Providers Care Manager Mortgage Name Role Phone Theresa Hernadez MD Primary Care Provider [phone] Encounter Details Date Type Department Care Team (Late st Contact Info) Description 08/13/2007 Outpatient Historical [facility] Internal Medicine Medical [place] A [facility] [address] [facility] [address] [address] Theresa Hernadez MD [address] [place] [address] Social History Tobacco Use Types Packs/Day Years Used Date Smoking Tobacco: Never Assessed Comments Unknown Sex and Gender Information Value Date Recorded Sex Assigned at Not on file Legal Sex Female 4:26 AM QUALITY ASSISTANT Gender Identity Not on file Sexual Orientation Not on file documented as of this encounter Last Filed Vital Signs Vital Sign Reading Time Taken Comments Blood Pressure 120/84 08/13/2007 3:15 PM QUALITY ASSISTANT Pulse 92 08/13/2007 3:15 PM QUALITY ASSISTANT Temperature 36.7 C (98.1 F) 08/13/2007 3:15 PM QUALITY ASSISTANT Respiratory Rate - - Oxygen Saturation - - Inhaled Oxygen Concentration - - Weight 61.7 kg (136 lb) 08/13/2007 3:15 PM QUALITY ASSISTANT Height - - Body Mass Index 22.29 01/21/2006 10:00 AM CDT documented in this encounter Plan of Treatment Not on file documented as of this encounter Visit Diagnoses Not on filedocumented in this encounter Care Teams Manager Mortgage Relationship Specialty Start Date End Date Theresa Hernadez MD [address] [place] [address], [place] [address] PCP - General 01/31/06 05/05/14 documented as of this encounter
--- OUTSIDE RECORDS SUMMARY | 2025-03-02 10:18 | XMS_ITS | Encounter Summary ---
Author Organization [facility] Address [address] [place] [address] Care Team Providers Care Professor Of Chemistry Name Role Phone Theresa Hernadez MD Primary Care Provider [phone] Encounter Details Date Type Department Care Team (Late st Contact Info) Description 07/14/2007 Outpatient Historical [facility] Internal Medicine Medical [place] A [place] [address] [facility] [address] [address] Theresa Hernadez MD [address] [address] Social History Tobacco Use Types Packs/Day Years Used Date Smoking Tobacco: Never Assessed Comments Unknown Sex and Gender Information Value Date Recorded Sex Assigned at Not on file 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
--- OUTSIDE RECORDS SUMMARY | 2025-03-02 10:18 | XMS_ITS | Encounter Summary ---
Author Organization [facility] Address [address] [place] [address] Care Team Providers Care Clinical Psychologist Name Role Phone Theresa Hernadez MD Primary Care Provider [phone] Encounter Details Date Type Department Care Team (Late st Contact Info) Description 08/25/2007 Orders Only [facility] Internal Medicine Medical [place] [facility] [address] [facility] [address] [address] Theresa Hernadez MD [address] [place] [address] [address] [place] [address] Social History Tobacco Use Types Packs/Day Years Used Date Smoking Tobacco: Never Assessed Comments Unknown Sex and Gender Information Value Date Recorded Sex Assigned at Not on file Legal Sex Female 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 ALTERNATIVE PHONE NUMBER: PHARMACY NUMBER: [phone] SECTION 1: Pt is wanting to stay on the 30mg of cymbalta. Doing fine . would like it called out. tsj pt only wants #30 called out at a time DOCTOR`S RESPONSE: atiya 08/25/07 at 11:58 am MEDICATIONS: CYMBALTA ORAL CAPSULE ENTERIC COATED 30 MG, 1 Every Day, 30 Dispensed, 6 Fills, status: NEW PRESCRIPTION, 08/25/2007. CYMBALTA ORAL CAPSULE ENTERIC COATED 60 MG, 1 Every Day, 90 Dispensed, 3 Fills, status: DISCONTINUED, 08/25/2007. SECTION 2: FINAL ACTION: lizet 08/25/07 at 01:23 pm Spoke with patient 08/25/07 at 01:23 pm. Called pharmacy at 08/25/07 at 01:23 pm. Electronically Signed by: Roxana Clemente on Saturday, August 25, 2007 * Theresa Hernadez MD - 02/19/2008 7:13 PM CDT TIME:10:39 am PATIENT`S HOME PHONE: PATIENT`S WORK PHONE: PATIENT`S INSURANCE: [employer] [facility] WHO TOOK THE CALL: Lyudmila Ward [facility] WHO CALLED: Patient [phone] PHARMACY NUMBER: [phone] documented in this encounter Plan of Treatment Not on file documented as of this encounter Visit Diagnoses Not on filedocumented in this encounter Care Teams Clinical Psychologist Relationship Specialty Start Date End Date Theresa Hernadez MD [address] [place] [phone] PCP - General 01/31/06 05/05/14 documented as of this encounter
--- OUTSIDE RECORDS SUMMARY | 2025-03-02 10:18 | XMS_ITS | Encounter Summary ---
Author Organization [facility] Address [address] [place] [address] Care Team Providers Care Roofer Helper Vinyl Coating Name Role Phone Theresa Hernadez MD Primary Care Provider [phone] Encounter Details Date Type Department Care Team (Late st Contact Info) Description 01/19/2008 Outpatient Historical [facility] Internal Medicine Medical [place] A [place] [address] [facility] [address] [address] Theresa Hernadez MD [address] [address] Social History Tobacco Use Types Packs/Day Years Used Date Smoking Tobacco: Never Assessed Comments Unknown Sex and Gender Information Value Date Recorded Sex Assigned at Not on file Legal 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5 [address] [address] PCP - General 01/31/06 05/05/14 documented as of this encounter
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
--- OUTSIDE RECORDS SUMMARY | 2025-03-02 10:18 | XMS_ITS | Encounter Summary ---
Author Organization [facility] Address [address] [place] [address] Care Team Providers Care Partnership Development Manager Name Role Phone Theresa Hernadez MD Primary Care Provider [phone] Encounter Details Date Type Department Care Team (Late st Contact Info) Description 01/19/2008 Orders Only [facility] Internal Medicine Medical [place] A [facility] [address] 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 TOBACCO USE Patient is a current tobacco user. MEDICATIONS: Medication list current. CHIEF COMPLAINT Here for follow up evaluation. HISTORY: HISTORY: 272.4-HYPERLIPIDEMIA The patient is tolerating the medications. 311-DEPRESSION The depression has improved. On cymbalta to 08/13 and feels better. 401.9-HYPERTENSION, UNSPECIFIED The patient is tolerating the medication. 477.8-ALLERGIC RHINITIS The allergic rhinitis has worsened with frequent symptoms noted since the last visit. dripping and cough 564.00-CONSTIPATION The patient's constipation symptoms have improved. Tried miralax for several weeks once a day but it didn't work. Lactulose three times a week- and has BM QD but CURRENT PROBLEM LIST: 272.4 HYPERLIPIDEMIA 305.1 TOBACCO [...] COMPLETE ORAL CAPSULE CONVENTIONAL, 1 Every Day BABY ASPIRIN ORAL TABLET CHEWABLE 81 MG, 1 three times weekly RHINOCORT AQUA NASAL SUSPENSION 32 MCG/ACT, 1 Every Day SINGULAIR ORAL TABLET 10 MG, 1 Every Day ZYRTEC ORAL TABLET 10 MG, 1 Every Day At Bedtime LISINOPRIL ORAL TABLET 5 MG, 1 Every Day LIPITOR ORAL TABLET 10 MG, 1 Every Day At Bedtime CYMBALTA ORAL CAPSULE ENTERIC COATED 30 MG, 1 Every Day LACTULOSE ORAL SOLUTION 10 GM/15ML, 15cc qid prn BENTYL ORAL TABLET 20 MG, NEEDED CURRENT ALLERGY LIST: AMOXICILLIN CODEINE DORYX FIORINAL SEPTRA ROS: GENERAL: Normal activity and energy level, no change in appetite. No major weight gain or loss. No malaise, chills, fever, diaphoresis. GI: FLATULENCE NOTED AND RELIEVED BY EXCESSIVE PASSING OF GAS. PHYSICAL EXAMINATION: CONSTITUTIONAL: GENERAL APPEARANCE: Healthy appearing patient in no distress. NECK/THYROID: Trachea midline. No thyroid enlargement, tenderness, or mass. No supraclavicular or cervical adenopathy. RESPIRATORY: Clear to auscultation and percussion. Normal respiratory effort. CARDIOVASCULAR: CARDIAC: Regular rhythm. No murmurs, rubs, or gallops. ARTERIAL: No aortic bruits. EDEMA/VARICOSITIES OF EXTREMITIES: No edema or varicosities. GASTROINTESTINAL: ABDOMEN: Soft, non-tender, without masses. Bowel sounds active. LIVER/SPLEEN/KIDNEY: No hepatosplenomegaly, tenderness or nodularity. Kidneys not palpable. PSYCHIATRIC: Judgment appropriate. Oriented. Normal memory. Mood and affect appropriate. ASSESSMENT/PLAN: 272.4-HYPERLIPIDEMIA MEDICATIONS: LIPITOR ORAL TABLET 10 MG, 1 Every Day At Bedtime, 30 Dispensed, 11 Fills, 30 Duration/Days Supply,status: CONTINUED, 01/19/2008. LAB ORDERS: Order number: [id number] Test Ordered: BASIC METABOLIC PANEL & GFR 1607 Order number: [id number] Test Ordered: ALT 1294 Order number: [id number] Test Ordered: LIPID PANEL 1078 311-DEPRESSION ASSESSMENT: The patient's depression has improved. Will not change medication, continue to monitor for complications. MEDICATIONS: CYMBALTA ORAL CAPSULE ENTERIC COATED 30 MG, 1 Every Day, 30 Dispensed, 6 Fills, status: CONTINUED, 01/19/2008. 401.9-HYPERTENSION, UNSPECIFIED ASSESSMENT: The blood pressure remains satisfactory. Will not change medication, continue to monitor for complications. MEDICATIONS: LISINOPRIL ORAL TABLET 5 MG, 1 Every Day, 30 Dispensed, 11 Fills, status: CONTINUED, 01/19/2008. 477.8-ALLERGIC RHINITIS hasn't been using rhinocort- would restart that as it is worse now MEDICATIONS: ZYRTEC ORAL TABLET 10 MG, 1 Every Day At Bedtime, 90 Dispensed, 3 Fills, 30 Duration/Days Supply, status: CONTINUED, 07/14/2007. RHINOCORT AQUA NASAL SUSPENSION 32 MCG/ACT, 1 Every Day, 3 Dispensed, 3 Fills, status: NEW PRESCRIPTION, 07/14/2007. SINGULAIR ORAL TABLET 10 MG, 1 Every Day, 30 Dispensed, 6 Fills, 30 Duration/Days Supply, status: CONTINUED, 01/19/2008. 564.00-CONSTIPATION better w/ lactusoe but terrible gas- will try amitiza. MEDICATIONS: LACTULOSE ORAL SOLUTION 10 GM/15ML BOTTLES, 15cc qid prn, 1 Dispensed, 6 Fills, status: DISCONTINUED, 01/19/2008. AMITIZA ORAL CAPSULE CONVENTIONAL 24 MCG, 1 Two Times A Day, 60 Dispensed, 11 Fills, status: NEW PRESCRIPTION, 01/19/2008. HEALTH MAINTENANCE: DISCUSSED SMOKING: yes smoker. ( 1/2 pk daily) RETURN VISIT : Patient instructed to return in 6 months. Electronically Signed by: Theresa Hernadez MD on Saturday, January 19, 2008 documented in this encounter Plan of Treatment Not on file documented as of this encounter Visit Diagnoses Not on filedocumented in this encounter Care Teams Partnership Development Manager Relationship Specialty Start Date End Date Theresa Hernadez MD [address] [place] [phone] PCP - General 01/31/06 05/05/14 documented as of this encounter
--- OUTSIDE RECORDS SUMMARY | 2025-03-02 10:18 | XMS_ITS | Encounter Summary ---
Author Organization [facility] Address [address] [place] [address] Care Team Providers Care Anesthetic Assistant Name Role Phone Theresa Hernadez MD Primary Care Provider [phone] Encounter Details Date Type Department Care Team (Late st Contact Info) Description 07/14/2007 Outpatient Historical [facility] [place] Internal [facility] Medical [place] [address] [facility] [address] [address] Theresa Hernadez MD [address] [address] Social History Tobacco Use Types Packs/Day Years Used Date Smoking Tobacco: Never Assessed Comments Unknown Sex and Gender Information Value Date Recorded Sex Assigned at Not on file Legal Sex Female 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
--- OUTSIDE RECORDS SUMMARY | 2025-03-02 10:18 | XMS_ITS | Encounter Summary ---
Author Organization [facility] Address [address] [place] [address] Care Team Providers Care Vehicle And Equipment Cleaner Name Role Phone Theresa Hernadez MD Primary Care Provider [phone] Encounter Details Date Type Department Care Team (Late st Contact Info) Description 01/27/2009 Outpatient Historical HIS [facility] Warren Amin MD [address] [place] [address] [place] [id number] C[place] Social History Tobacco Use Types Packs/Day Years Used Date Smoking Tobacco: Never Alcohol Use Standard Drinks/Week Comments Not Asked 0 (1 standard drink = 0.6 oz pur e alcohol) Comments No Sex and Gender Information Value Date Recorded Sex Assigned at Not on file Legal Sex 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
--- OUTSIDE RECORDS SUMMARY | 2025-03-02 10:19 | XMS_ITS | Encounter Summary ---
Author Organization [facility] Address [address] [place] [address] Care Team Providers Care Boring Machine Operator Horizontal Name Role Phone Theresa Hernadez MD Primary Care Provider [phone] Encounter Details Date Type Department Care Team (Late st Contact Info) Description 01/21/2006 Orders Only [facility] Internal Medicine Medical [place] A [facility] [address] [facility] [address] [address] Theresa Hernadez MD [facility] [address] [place] [address] Social History Tobacco Use Types Packs/Day Years Used Date Smoking Tobacco: Never Assessed Comments Unknown Sex and Gender Information Value Date Recorded Sex Assigned at Not on file 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 The upper respiratory symptoms began approximately 1 week ago.Symptoms include runny nose, symptoms include sinus congestion, has symptoms of cough. CURRENT PROBLEM LIST: CURRENT MEDICATION LIST: CURRENT ALLERGY LIST: ROS: new patient history form reviewed 01/21/06 GENERAL: No fever. NEUROLOGIC: HAS EXPERIENCED SEIZURES. PAST MEDICAL HISTORY: MEDICAL: new patient history form reviewed 01/21/06 FAMILY HISTORY: new patient history form reviewed 01/21/06 FATHER: Illnesses: Ischemic heart disease. SOCIAL HISTORY: new patient history form reviewed 01/21/06 TOBACCO USE: Currently smokes 1/2 PPD. DISCUSSED SMOKIN/06. PHYSICAL EXAMINATION: CONSTITUTIONAL: GENERAL APPEARANCE: Healthy appearing patient in no distress. EARS, NOSE, MOUTH AND THROAT: EARS: Tympanic membranes shiny without retraction. Canals unremarkable. Hearing grossly normal. NOSE (AND SINUS): No abnormality of the nose or sinuses is noted. ORAL: Inspection of gums, lips, palate, and teeth normal. No scars, lesions, or masses. Oral mucosaunremarkable with non-inflamed posterior pharynx. NECK/THYROID: Trachea midline. No thyroid enlargement, tenderness, or mass. No supraclavicular or cervical adenopathy. RESPIRATORY: MODERATE EXPIRATORY WHEEZE HEARD THROUGHOUT BOTH LUNG GREWAL. CARDIOVASCULAR: CARDIAC: Regular rhythm. No murmurs, rubs, or gallops. ARTERIAL: Aortic pulses of normal amplitude with no bruits. EDEMA/VARICOSITIES OF EXTREMITIES: No edema or varicosities. GASTROINTESTINAL: ABDOMEN: Soft, non-tender, without masses. Bowel sounds active. LIVER/SPLEEN/KIDNEY: No hepatosplenomegaly, tenderness or nodularity. Kidneys not palpable. PSYCHIATRIC: Judgment appropriate. Oriented. Normal memory. Mood and affect appropriate. ASSESSMENT/PLAN: 461.9-SINUSITIS UNSPECIFIED just finished z pack- will add liquibid and will call if not better MEDICATIONS: LIQUIBID-D ORAL TABLET 12 HR 40-600 MG, 1 Two Times A Day, As Needed, 30 Dispensed, 1 Fills, status: NEW PRESCRIPTION, 01/21/2006. 786.07-WHEEZING think this is related to allergies- MEDICATIONS: ALBUTEROL INHALATION AEROSOL SOLUTION 90 MCG/ACT, 2 puffs q 2-4 hoursn prn, 1 Dispensed, 6 Fills, status: NEW PRESCRIPTION, 01/21/2006. 272.4-HYPERLIPIDEMIA ASSESSMENT: Will not change medication, continue to monitor for complications. The patient's most recent labs reviewed. MEDICATIONS: LIPITOR ORAL TABLET 10 MG, 1 Every Day, 90 Dispensed, 3 Fills, status: NEW PRESCRIPTION, 01/21/2006. 477.8-ALLERGIC RHINITIS MEDICATIONS: ZYRTEC ORAL TABLET 10 MG, 1 Every Day At Bedtime, 90 Dispensed, 3 Fills, status: NEW PRESCRIPTION, 01/21/2006. SINGULAIR ORAL TABLET 10 MG, 1 Every Day, 90 Dispensed, 3 Fills, status: NEW PRESCRIPTION, 01/21/2006. RHINOCORT AQUA NASAL SUSPENSION 32 MCG/ACT, 1 Every Day, 3 Dispensed, 3 Fills, status: NEW PRESCRIPTION, 01/21/2006. HEALTH MAINTENANCE: LAST PAP DATE: 02/2005. LAST MAMMOGRAM DATE: 06/2005. LAST DATE COLONOSCOPY: 03/2001. LAST BONE DENSITY DATE: 2001. LAST FLU VACCINE:07/2005 PREVENTIVE COUNSELING The patient was counseled regarding screening procedures and recommended schedule for mammography, GI hemoccult testing, colonoscopy, cholesterol, thyroid and diabetes screening. REQUESTING OLD RECORDS: I am requesting old records. RETURN VISIT : Patient instructed to return in 6 months. Electronically Signed by: Theresa Hernadez MD on Saturday, January 21, 2006 documented in this encounter Plan of Treatment Not on file documented as of this encounter Visit Diagnoses Not on filedocumented in this encounter Care Teams Boring Machine Operator Horizontal Relationship Specialty Start Date End Date Theresa Hernadez MD [address] [place] [phone] PCP - General 01/31/06 05/05/14 documented as of this encounter
--- OUTSIDE RECORDS SUMMARY | 2025-03-02 10:19 | XMS_ITS | Clinical Summary ---
Author Organization [facility] Address [address] [place] [address] Care Team Providers Care Leather Scraper Name Role Phone Syed Bucio MD Unavailable [phone] Source Comments [facility],non-owned Affiliates and Associated Physician Practices is amultiple site organization consisting of ambulatory clinics and hospital sitesin [place], [place], [place] and [place]. This disclosure is being madepursuant to the Care Everywhere program and may not contain all information available regarding this patient. Last updated 18.[facility] Allergies Active Allergy Reactions Criticality Noted Date Comments Aeicdskgfx-Anvutrz-Fmfzqcgu Swelling 12/02/19 10 Bactrim Swelling 12/02/2009 Medications * Be aware that medications may not be up to date on this document. Alwaysverify current medications with the patient. multivitamin daily tablet Take 1 Tab by mouth daily with food. Active CALTRATE 600+D PO Take 1 Tab by mouth 2 times daily. Active fluticasone propionate (FLONASE) 50 MCG/ACT nasal spray Reading 2 Sprays into each nostril 2 times daily. 16 g 3 2 Active atorvastatin (LIPITOR) 10 MG tablet Take 1 Tab by mouth at bedtime. 30 Tab 11 3 Active lisinopril (PRINIVIL; ZESTRIL) 10 MG tablet Take 1 Tab by mouth once daily. 30 Tab 11 3 Active acetaminophen-c odeine (TYLENOL #3) 300-30 MG tablet Take 1/2 tablet by mouth every 4 hours as needed for cough 35 Tab 0 4 Active Pseudoephedrine -Ibuprofen (ADVIL COLD & SINUS LIQUI-GELS) 30-200 MG CAPS Take 1 cap every 4 hours prn congestion 20 Cap 0 4 Active ALPRAZolam (XANAX) 1 MG tablet Take 1/2 tab AM and afternoon as needed, and 1 tab at bedtime as needed. 60 Tab 5 4 Active DULoxetine (CYMBALTA) 60 MG capsule Take 1 Cap by mouth once daily. 30 Cap 11 4 Active Active Problems Problem Noted Date Diagnosed Date Pelvic pain in female 01/18/2014 Abdominal pain, RLQ (right lower quadrant) 01/18 Noncompliance with medications 12/11/2011 Essential hypertension 12/02/2009 Overview (07/07/2015): Mixed hyperlipidemia 12/02/2009 Allergic rhinitis 12/02/2009 Overview (07/07/2015): Allergic bronchitis 12/02/2009 Smoker 12/02/2009 Reactive depression (situational) 12/02/2009 Abdominal bloating 12/02/2009 Lactose intolerance 12/02/2009 Cervical spondylosis with myelopathy 12/02/2009 Overview (12/02/2009): Paresthesias right index finger Immunizations Immunization Administration Dates Next Due FLU VACCINE TRI IIV3 SPLIT PF IM (FLUVIRIN) 03/2011 INFLUENZA VACCINE 07/06/2013,06/17/2012,06/20/20 10 PNEUMOCOCCAL PPSV23 12/10/2011 ZOSTER VACCINE, LIVE 04/11/2011 Social History Tobacco Use Types Packs/Day Years Used Date Smoking Tobacco: Every Day Cigarettes Smokeless Tobacco: Never Tobacco Cessation:Counseling Given: Yes Comments:10- a day Alcohol Use Standard Drinks/Week Comments No 0 (1 standard drink = 0.6 oz pur e alcohol) Comments No Sex and Gender Information Value Date Recorded Sex Assigned at Not on file Legal Sex Female 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 Gender Identity Not on file Sexual Orientation Not on file Last Filed Vital Signs Vital Sign Reading Time Taken Comments Blood Pressure 120/80 01/18/2014 10:15 AM CDT Pulse 72 01/18/2014 10:15 AM CDT Temperature 36.5 C (97.7 F) 07/28/2012 1:41 PM CDT Respiratory Rate 12 01/18/2014 10:15 AM CDT Oxygen Saturation 100% 01/25/2010 12:49 PM CDT Inhaled Oxygen Concentration - - Weight 59.9 kg (132 lb) 01/18/2014 10:15 AM CDT Height 163.8 cm (5' 4.5) 01/18/2014 10:15 AM CD T Body Mass Index 22.31 01/18/2014 10:15 AM CDT Plan of Treatment Health Maintenance Due Date Last Done Comments BONE DENSITY TESTING 1945 HEPATITIS C SCREENING 09/27/1964 DTAP/TDAP/TD VACCINES (1 - Tdap) 1965 ZOSTER VACCINE (2 of 3) 06/06/2011 04/11/2011 PNEUMOCOCCAL VACCINE 50+ (2 of 2 - PCV) 12/09/2012 12/10/2011 Respiratory Syncytial Virus (RSV) Vaccine Pt: or over 60 yrs (1 - 1-dose 75+ series) 2021 COVID-19 VACCINE ( - season) 2024 DEPRESSION SCREENING 10/07/2024 INFLUENZA VACCINE (Season Ended) 2025 07/06/2013, 06/17/2012, 06/12/2011, Additional history exists HEPATITIS B VACCINE Aged Out No longe r eligible based on patient's age to complete this topic HIB VACCINE Aged Out No longer eligi ble based on patient's age to complete this topic HPV VACCINE Aged Out No longer eligi ble based on patient's age to complete this topic MENINGOCOCCAL (Group B) VACCINE SHARED DECISION-MAKING Aged Out No longer eligible based on patient's age to complete this topic MENINGOCOCCAL GROUPS A/C/Y/W VACCINE Aged Out No longer eligible based on patient's age to complete this topic Insurance MEDICARE ANTHEM Advance Directives Documents on File Type Date Recorded Patient Coloring Room Man Expl anation Adv Directive/Living Will/POA 12/07/2009 6:19 PM Care Teams Leather Scraper Relationship Specialty Start Date End Date Syed Bucio MD [address] [place] [address] Gastroenterology 05/01/12
--- OUTSIDE RECORDS SUMMARY | 2025-03-02 10:19 | XMS_ITS | Clinical Summary ---
Author Organization [facility] Address [address] [place] [address] Phone Care Team Providers Care Fish Seiner Name Role Phone Unavailable Primary Care Provider Unavailabl e Allergies Active Allergy Reactions Criticality Noted Date Comments Amoxicillin Hives High 08/13/2007 Qgjfndoopx-Fkymvdm-Zogi eine Unknown,Other (See Comments) 01/10/2009 Caused blisters in her mouth Doxycycline Hyclate Hives High 01/31/2006 Sulfa (Sulfonamide Antibiotics) Swelling Low 01/31/2006 Sulfamethoxazole-Trimet hoprim Swelling Low 06/02/2009 Medications CENTRUM SILVER TAB 1 Every Day 301.00 0 01/22/20 06 Active BABY ASPIRIN 81 MG CHEWABLE TAB 1 three times weekly 36.00 0 07/22/20 06 Active lactulose (ENULOSE) 10 gram/15 mL Oral Soln 15cc qid prn 1.00 6 09/19/20 07 Active ZYRTEC 10 mg Oral Tab 1 Every Day At Bedtime 90.00 3 07/14/20 07 Active BENTYL 20 mg Oral Tab NEEDED 30.00 6 01/19/20 08 Active COMBIPATCH 0.05-0.14 mg/24 hr Transdermal PTSW Apply 1 Patch to skin as directed every 2 weeks. Active duloxetine (CYMBALTA) 30 mg Oral CpDR Take 1 Cap by mouth daily. 90 Cap 3 07/22/20 08 Active lisinopril (PRINIVIL) 5 mg Oral Tab Take 1 Tab by mouth daily. 90 Tab 3 01/22/20 09 Active hydrocortisone acetate (ANUSOL-HC) 25 mg Rectal Supp Insert 1 Suppository by rectum 2 times daily as needed for Hemorrhoids. 10 Suppository 0 03/03/20 09 Active montelukast (SINGULAIR) 10 mg Oral Tab Take 1 Tab by mouth daily. 90 Tab 3 03/23/20 09 Active atorvastatin (LIPITOR) 10 mg Oral Tab Take 1 Tab by mouth daily at bedtime. 90 Tab 3 03/23/20 09 Active cetirizine (ZYRTEC) 10 mg Oral Tab Take 10 mg by mouth daily flash oven operator. Active azelastine (ASTEPRO) 137 mcg Both Nostril SprA Administer 1 [place] in each nostril 2 times daily. Active Active Problems Problem Noted Date Diagnosed Date Irritable bowel syndrome 03/02/2009 Depressive disorder, not elsewhere classified Unspecified constipation 08/13/2007 Unspecified essential hypertension 07/14/2007 Need for prophylactic vaccin ation against Streptococcus pneumoniae (pneumococcus) 07/14/2007 Need for prophylactic vaccin ation and inoculation against influenza 07/14/2007 Special screening for osteoporosis 01/06/2007 Elevated blood pressure read ing without diagnosis of hypertension 07/22/2006 Tobacco use disorder 07/22/2006 Acute bronchitis 01/31/2006 Other and unspecified hyperlipidemia 01/21/2006 Allergic rhinitis due to other allergen 01/22/20 Resolved Problems Problem Noted Date Diagnosed Date Resolved Date Acute sinusitis, unspecified 01/21/2006 07/12/2008 Wheezing 01/21/2006 07/12/2008 Immunizations Immunization Administration Dates Next Due Influenza Vaccine Split 3+ Yrs IM 07/12/2008 Social History Tobacco Use Types Packs/Day Years Used Date Smoking Tobacco: Never Alcohol Use Standard Drinks/Week Comments Not Asked 0 (1 standard drink = 0.6 oz pur e alcohol) Comments No Sex and Gender Information Value Date Recorded Sex Assigned at Not on file 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 Gender Identity Not on file Sexual Orientation Not on file Last Filed Vital Signs Vital Sign Reading Time Taken Comments Blood Pressure 120/68 03/02/2009 3:16 PM CDT Pulse 76 03/02/2009 3:16 PM CDT Temperature 37.3 C (99.1 F) 01/27/2009 3:15 PM CDT Respiratory Rate 16 03/02/2009 3:16 PM CDT Oxygen Saturation - - Inhaled Oxygen Concentration - - Weight 63.5 kg (140 lb) 06/02/2009 2:16 PM CDT Height 165.1 cm (5' 5) 06/02/2009 2:16 PM CDT Body Mass Index 23.3 06/02/2009 2:16 PM CDT Plan of Treatment Health Maintenance Due Date Last Done Comments RSV VACCINE (60+ or ) (1 - 1-dose 75+ series) 2021 INFLUENZA VACCINE (#1) 2024 , 06/02/2020, 06/01/2019, Additional history exists OSTEOPOROSIS SCREENING 02/18/2025 02/19/2020, 2016 DTAP/TDAP/TD VACCINES (2 - T d or Tdap) 07/02/2029 07/02/2019 ZOSTER VACCINE Completed 09/21/2018, 07/07, 04/11/2011, Additional history exists PNEUMOCOCCAL VACCINE 50+ YEARS Completed 0 06/01/2019, 04/26/2017, 05/31/2016, Additional history exists COLORECTAL SCREENING Discontinued 11/21/2021, 08/26/20 Colorectal Cancer Screening Discontinued FIT-DNA Q 3 years Discontinued FIT/FOBT Q 1 year Discontinued Flex Sig/CT Colonography Q 5 years Discontinued Insurance [employer] BLUE ACCESS/TRUE BLUE PPO
--- OUTSIDE RECORDS SUMMARY | 2025-03-02 10:19 | XMS_ITS | Encounter Summary ---
Author Organization [facility] Address [address] [place] [address] Care Team Providers Care Barber Stylist Name Role Phone Theresa Hernadez MD Primary Care Provider [phone] Encounter Details Date Type Department Care Team (Latest Contact Info) Description 05/26/2009 Outpatient Historical [facility] Roderick Horton MD NO ADDRESS ON FILE Diverticulitis of Colon (without Mention of Hemorrhage) Social History Tobacco Use Types Packs/Day Years Used Date Smoking Tobacco: Never Alcohol Use Standard Drinks/Week Comments Not Asked 0 (1 standard drink = 0.6 oz pur e alcohol) Comments No Sex and Gender Information Value Date Recorded Sex Assigned at Not on file 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 [address] [place], [place] [address] Admit Date: 05/26/2009 CHERISE HILARIO Sex: F Admit Prov: RODERICK HORTON Date: 1945 Primary Care Prov: PAULY MOELLER CMRN: [id number] [id number] [facility] Ordering Prov: N/A Accession Number: [id number] Interpretation WATER-SOLUBLE CONTRAST ENEMA EXAMINATION OF THE COLON, 05/26/2009 CLINICAL HISTORY: Colonic diverticulosis, preoperative evaluation prior to colon surgery, constipation. A preliminary abdominal pin machine operator radiograph is not remarkable. Enema examination of the colon was performed using water-soluble Cysto-Conray contrast in the usual retrograde fashion. There is good filling and distention of the entire colon, including the cecum, but without ileal reflux. There is moderately advanced diverticulosis present in the proximal sigmoid colon, and moderate redundancy present. There is no evidence of mass, constriction, or obstructing abnormality. The colon is normal in caliber and shows normal appearing mucosal outline. No extrinsic abnormalities are seen. There is moderate emptying of the colon on the postevacuation radiograph. IMPRESSION: Moderately advanced proximal sigmoid diverticulosis and otherwise negative colon findings. . Dictated by: DELONTE COLORADO 05/26/2009 08:30 Electronically signed by: DELONTE COLORADO 05/26/2009 08:47 Transcribed: 05/26/2009 08:40 SMM Procedure Note Delonte Colorado MD - 05/26/2009 [facility] [address], [place] [address] Admit Date: 05/26/2009 DIAMONDMAXIMINOCHERISE P Sex: F Admit Prov: RODERICK HORTON Date:1945 Primary Care Prov: PAULY MOELLER [id number] [id number] IM[facility] SERVICES Ordering Prov: N/A Interpretation WATER-SOLUBLE CONTRAST ENEMA EXAMINATION OF THE COLON, 05/26/2009 CLINICAL HISTORY: Colonic diverticulosis, preoperative evaluationprior to colon surgery, constipation. A preliminary abdominal pin machine operator radiograph is not remarkable. Enema examination of the colon was performed using dbkzi-tfjvtvuWguzy-Vwkunp contrast in the usual retrograde fashion. There is good filling and distention of the entire colon, including the cecum, but withoutileal reflux. There is moderately advanced diverticulosis present in theproximal sigmoid colon, and moderate redundancy present. There is no evidenceof mass, constriction, or obstructing abnormality. The colon is normalin caliber and shows normal appearing mucosal outline. No extrinsic abnormalities are seen. There is moderate emptying of the colon onthe postevacuation radiograph. IMPRESSION: Moderately advanced proximal sigmoid diverticulosis and otherwise negative colon findings. . Dictated by: DELONTE COLORADO 05/26/2009 08:30 Electronically signed by: DELONTE COLORADO 05/26/2009 08:47 Transcribed: 05/26/2009 08:40 SMM us Roderick Horton MD DIAGNOSTIC IMAGING ORDERABL ES Final Result documented in this encounter Visit Diagnoses Diagnosis Diverticulitis of colon (without mention of hemorrhage)(562.11) Diverticulitis of colon (without mention of hemorrhage) documented in this encounter Care Teams Barber Stylist Relationship Specialty Start Date End Date Theresa Hernadez MD [address] [place] [phone] PCP - General 01/31/06 05/05/14 documented as of this encounter
--- OUTSIDE RECORDS SUMMARY | 2025-03-02 10:19 | XMS_ITS | Encounter Summary ---
Author Organization [facility] Address [address] [place] [address] Care Team Providers Care Smash Hand Name Role Phone Theresa Hernadez MD Primary Care Provider [phone] Encounter Details Date Type Department Care Team (Latest Contact Info) Description 05/30/2009 Outpatient Historical HIS [facility] Roderick Horton MD NO ADDRESS ON FILE Diverticulitis of Colon (without Mention of Hemorrhage) Social History Tobacco Use Types Packs/Day Years Used Date Smoking Tobacco: Never Alcohol Use Standard Drinks/Week Comments Not Asked 0 (1 standard drink = 0.6 oz pur e alcohol) Comments No Sex and Gender Information Value Date Recorded Sex Assigned at Not on file 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 Gender Identity Not on file Sexual Orientation Not on file documented as of this encounter Plan of Treatment Pending Results Name Type Priority Associated Diagnoses Date /Time TYPE AND CROSSMATCH ADDITIONAL PACKED CELLS Blood Bank Routine 06/01/20 09 12:33 PM CDT documented as of this encounter Procedures Procedure Name Priority Date/Time Associated Diagnosis Comments CBC WITH DIFFERENTIAL Routine 06/03/2009 6:57 AM CDT CBC WITH DIFFERENTIAL Routine 06/02/2009 7:05 AM CDT BASIC METABOLIC PANEL Timed Study 06/02/2009 7:05 AM CDT PATHOLOGY Routine 06/01/2009 5:00 PM CDT CBC WITH DIFFERENTIAL Stat 06/01/2009 12:55 PM CDT C-REACTIVE PROTEIN Stat 06/01/2009 12 :55 PM CDT COMPREHENSIVE METABOLIC PANEL Stat 06/01/2009 12:55 PM CDT TYPE AND CROSSMATCH Routine 06/01/2009 1 2:27 PM CDT documented in this encounter Results * (ABNORMAL) CBC WITH DIFFERENTIAL (06/03/2009 6:57 AM CDT) RDW-STDEV 45.9 37.1 - 48.7 fL [facility] RBC 3.89(L) 3.90 - 4.90 M/uL [facility] MCHC 31.7 31.5 - 35.5 % [facility] MCV 92.5 82.0 - 99.0 fL [facility] PLATELETS 261 140 - 350 K/uL [facility] HEMOGLOBIN 11.4(L) 11.8 - 14.8 g/dL [facility] RDW 13.8 11.5 - 14.5 % [facility] WBC 10.3(H) 4.0 - 9.8 K/uL [facility] MCH 29.3 27.2 - 32.6 pg [facility] MPV 10.6 9.3 - 12.4 fL [facility] HEMATOCRIT 36.0 35.5 - 44.0 % [facility] MONOCYTES 8 3 - 13 % [facility] MONOCYTE ABSOLUTE 0.81 0.10 - 1.30 K/uL [facility] NEUTROPHILS 75(H) 45 - 70 % [facility] NEUTROPHIL ABSOLUTE 7.74(H) 1.90 - 7.00 K/uL [facility] EOSINOPHILS 0 0 - 7 % [facility] EOSINOPHIL ABSOLUTE 0.02 0.00 - 0.70 K/uL [facility] LYMPHOCYTES 17 16 - 45 % [facility] LYMPHOCYTE ABSOLUTE 1.71 0.70 - 4.50 K/uL [facility] BASOPHILS 0 0 - 2 % [facility] BASOPHILS ABSOLUTE 0.01 0.00 - 0.20 K/uL [facility] Blood specimen (specimen) 06/03/2009 6:57 AM CDT 06/03/2009 7:16 AM CDT us Roderick Horton MD HEMATOLOGY ORDERABLES Edite d [facility] CLIA# [id number] [address] [place] [address] * (ABNORMAL) CBC WITH DIFFERENTIAL (06/02/2009 7:05 AM CDT) HEMATOCRIT 38.8 35.5 - 44.0 % [facility] RDW-STDEV 44.7 37.1 - 48.7 fL [facility] RBC 4.19 3.90 - 4.90 M/uL [facility] MCHC 32.2 31.5 - 35.5 % [facility] MCV 92.6 82.0 - 99.0 fL [facility] PLATELETS 299 140 - 350 K/uL [facility] HEMOGLOBIN 12.5 11.8 - 14.8 g/dL [facility] RDW 13.4 11.5 - 14.5 % [facility] WBC 13.0(H) 4.0 - 9.8 K/uL [facility] MCH 29.8 27.2 - 32.6 pg [facility] MPV 10.8 9.3 - 12.4 fL [facility] LYMPHOCYTES 9(L) 16 - 45 % [facility] LYMPHOCYTE ABSOLUTE 1.19 0.70 - 4.50 K/uL [facility] BASOPHILS 0 0 - 2 % [facility] BASOPHILS ABSOLUTE 0.00 0.00 - 0.20 K/uL [facility] MONOCYTES 9 3 - 13 % [facility] MONOCYTE ABSOLUTE 1.23 0.10 - 1.30 K/uL [facility] NEUTROPHILS 82(H) 45 - 70 % [facility] NEUTROPHIL ABSOLUTE 10.61(H) 1.90 - 7.00 K/uL [facility] EOSINOPHILS 0 0 - 7 % [facility] EOSINOPHIL ABSOLUTE 0.00 0.00 - 0.70 K/uL [facility] Blood specimen (specimen) 06/02/2009 7:05 AM CDT 06/02/2009 8:04 AM CDT us Roderick Horton MD HEMATOLOGY ORDERABLES Edite d [facility] CLIA# [id number] [address] [place] [address] * (ABNORMAL) BASIC METABOLIC PANEL (06/02/2009 7:05 AM CDT) CALCIUM 7.9(L) 8.6 - 10.2 mg/dL [facility] Comment:Significant change f rom prior result, correlate clinically and redraw if necessary. CO2 24 22 - 30 mmol/L [facility] CREATININE 0.65 0.51 - 0.95 mg/dL [facility] POTASSIUM 3.8 3.5 - 4.9 mmol/L [facility] BUN 10 6 - 20 mg/dL [facility] CHLORIDE 102 96 - 108 mmol/L [facility] GLUCOSE 156(H) 65 - 99 mg/dL [facility] SODIUM 134(L) 135 - 145 mmol/L [facility] GFR, >60 >=60 mL/min/1. 7 sq meter [facility] GFR >60 >=60 mL/min/1. 7 sq meter [facility] Comment: Modification of Diet in Renal Disease (MDRD) study formula. Estimated GFR rate interpretative information for both Americans and non- Americans is available on the [facility] Intranet at: [email or web address] [facility] [email or web address] the [email or web address] Select: Lab Policies and Procedures Select: Reference Ranges - GFR Blood specimen (specimen) 06/02/2009 7:05 AM CDT 06/02/2009 8:04 AM CDT Roderick Horton MD CHEMISTRY ORDERABLES Edited Performing Organization Address City/State/[facility] Co de Phone Number [facility] CLIA# [id number] [address] [place] [address] * PATHOLOGY (06/01/2009 5:00 PM CDT) FINAL REPORT [address] [address] Patient: CHERISE HILARIO : 1945 Procedure Date: 06/01/2009 Accession Date: 06/02/2009 Case No: [id number] Ordering Dr: RODERICK HORTON Case type SW is performed by [place], [place]; all other case types are performed by [facility], [place], [place] SURGICAL PATHOLOGY & NON-GYNECOLOGIC CYTOPATHOLOGY REPORT DIAGNOSIS COLON, SIGMOID, EXCISION: - DIVERTICULOSIS. - MUCOSAL CHANGES SUGGESTIVE OF HEALED INJURY (SEE DESCRIPTION). LYMPH NODE, EXCISION: - NO PATHOLOGIC DIAGNOSIS. Specimen Description: Sigmoid colon. Operative Procedure: Laparoscopic anterior colon resection. Patient Information/Histor y/Diagnosis: Diverticulosis and stricture. Gross: Received in a single container labeled Cherise Hilario, sigmoid colon is a 20.5-cm long x 5.7-cm circumference segment of bowel. The specimen is received closed. One end is stapled. Near the stapled end of the bowel, the bowel has a circumference of 4.5 cm. The serosal surface is pink-molina and glistening with focal, thin, fibrous adhesions. The attached mesentery is 20.5 x 14.5 x 0.8 cm. The bowel wall has a uniform thickness of 0.7 cm. The mucosal surface is purple-alvarado and velvety with normal folds. No masses are identified. Sectioning exhibits multiple diverticula; none show evidence of inflammation or perforation. The attached mesentery is sectioned for lymph nodes. Two rings of bowel are loose within the container and are 2.2 and 2.5 cm in greatest dimension. An additional segment of bowel, 1.8 cm in length x 3 cm in diameter is loose within the container. This segment is received closed with both ends stapled. The serosal surface of the loose segment is pink-molina, smooth, and glistening. Minimal mesentery is attached. The bowel wall has a uniform thickness of 0.3 cm. The mucosal surface is molina and velvety. This segment of bowel is remarkable for a transmural defect, 0.3 cm in greatest dimension, 0.5 cm from the closest bowel margin. The surrounding mucosa is red-molina and dusky. The mucosal surface is also remarkable for an area of retraction, 0.2 cm in greatest dimension. This area is 0.7 cm from the closest bowel margin. Corn Chip Maker sections are submitted as follows: A1-stapled margin; A2-open margin; A3 through A5- diverticula; A6-lymph nodes; A7-area of defect in smaller segment; A8-area of retraction in smaller segment. VENITA/CLAUDIA 06.02.2009 02:25 pm Microscopic: The slides are labeled [id number] and Cherise Hilario. The sections of the sigmoid colon show numerous diverticula, without significant inflammation or evidence of perforation. The resection margins are unremarkable. The grossly described area of mucosal retraction in the smaller segment of bowel represents fibrosis and mucosal hyperplasia. These changes may represent a healed mucosal injury; however, an active injurious pattern is not seen. The grossly described defect is associated with acute hemorrhage, but a significant inflammatory infiltrate is not seen, and most likely occurred around the time of surgery. There is no evidence of malignancy. The submitted lymph nodes are unremarkable. OJL/DRC 06.03.2009 12:56 pm Staging Form: No. ELECTRONIC SIGNATURE FOR ADAM SORENSEN M.D.- 06/03/09 03:02 pm [facility] 06/01/2009 5:00 PM CDT Roderick Horton MD PATHOLOGY/CYTOLOGY ORDERABL ES Final Result Performing Organization Address [facility]/ZIP Co de Phone Number [facility] CLIA# [id number] [address] [place] [address] * C-REACTIVE PROTEIN (06/01/2009 12:55 PM CDT) [facility] CRP 0.3 0.0 - 0.8 mg/dL [facility] Blood specimen (specimen) 06/01/2009 12:55 PM CDT 06/01/2009 1:18 PM CDT Roderick Horton MD CHEMISTRY ORDERABLES Final Result Performing Organization Address City/[facility] Co de Phone Number [facility] CLIA# [id number] [address] [place] [address] * (ABNORMAL) CBC WITH DIFFERENTIAL (06/01/2009 12:55 PM CDT) Pathologist [facility] MCHC 34.3 31.5 - 35.5 % [facility] MCV 90.9 82.0 - 99.0 fL [facility] PLATELETS 315 140 - 350 K/uL [facility] HEMOGLOBIN 15.1(H) 11.8 - 14.8 g/dL [facility] RDW 13.5 11.5 - 14.5 % [facility] WBC 10.3(H) 4.0 - 9.8 K/uL [facility] MCH 31.2 27.2 - 32.6 pg [facility] MPV 10.7 9.3 - 12.4 fL [facility] HEMATOCRIT 44.0 35.5 - 44.0 % [facility] RDW-STDEV 44.8 37.1 - 48.7 fL [facility] RBC 4.84 3.90 - 4.90 M/uL [facility] NEUTROPHILS 71(H) 45 - 70 % [facility] NEUTROPHIL ABSOLUTE 7.33(H) 1.90 - 7.00 K/uL [facility] EOSINOPHILS 1 0 - 7 % [facility] EOSINOPHIL ABSOLUTE 0.09 0.00 - 0.70 K/uL [facility] LYMPHOCYTES 22 16 - 45 % [facility] LYMPHOCYTE ABSOLUTE 2.22 0.70 - 4.50 K/uL [facility] BASOPHILS 0 0 - 2 % [facility] BASOPHILS ABSOLUTE 0.04 0.00 - 0.20 K/uL [facility] MONOCYTES 6 3 - 13 % [facility] MONOCYTE ABSOLUTE 0.66 0.10 - 1.30 K/uL [facility] Blood specimen (specimen) 06/01/2009 12:55 PM CDT 06/01/2009 1:18 PM CDT us Roderick Horton MD HEMATOLOGY ORDERABLES Edite d [facility] CLIA# [id number] [address] [place] [address] * (ABNORMAL) COMPREHENSIVE METABOLIC PANEL (06/01/2009 12:55 PM CDT) CO2 20(L) 22 - 30 mmol/L [facility] POTASSIUM 3.7 3.5 - 4.9 mmol/L [facility] CREATININE 0.67 0.51 - 0.95 mg/dL [facility] CALCIUM 9.5 8.6 - 10.2 mg/dL [facility] CHLORIDE 104 96 - 108 mmol/L [facility] SODIUM 137 135 - 145 mmol/L [facility] ALKALINE PHOSPHATASE 69 35 - 104 U/L [facility] BILIRUBIN TOTAL 0.4 0.2 - 1.0 mg/dL [facility] ALT 22 0 - 31 U/L [facility] AST 23 12 - 32 U/L [facility] TOTAL PROTEIN 7.7 6.3 - 8.6 g/dL [facility] GLUCOSE 82 65 - 99 mg/dL [facility] ALBUMIN 4.5 3.4 - 4.8 g/dL [facility] BUN 12 6 - 20 mg/dL [facility] GFR, >60 >=60 mL/min/1.7 sq meter [facility] GFR >60 >=60 mL/min/1.7 sq meter [facility] Comment: Modification of Diet in Renal Disease (MDRD) study formula. Estimated GFR rate interpretative information for both Americans and non- Americans is available on the [facility] Intranet at: [email or web address] the [email or web address] Select: Lab Policies and Procedures Select: Reference Ranges - GFR Blood specimen (specimen) 06/01/2009 12:55 PM CDT 06/01/2009 1:18 PM CDT us Roderick Horton MD CHEMISTRY ORDERABLES Edited [facility] CLIA# [id number] [address] [place] [address] * TYPE AND CROSSMATCH (06/01/2009 12:27 PM CDT) HISTORY CHECK No Historical ABO/Rh [facility] SPECIMEN LIFE 3 days from drawdate [facility] ABO/RH TYPE O Positive [facility] ANTIBODY SCREEN Negative [facility] Blood specimen (specimen) 06/01/2009 12:27 PM CDT us Roderick Horton MD BLOOD BANK ORDERABLES Edite d INTERFACE SYSTEM Refer to clinic/hospital department [facility] CLIA# [id number] [address] [place] [address] documented in this encounter Visit Diagnoses Diagnosis Diverticulitis of colon (without mention of hemorrhage)(562.11) Diverticulitis of colon (without mention of hemorrhage) documented in this encounter Care Teams Smash Hand Relationship Specialty Start Date End Date Theresa Hernadez MD [address] [place] [address] PCP - General 01/31/06 05/05/14 documented as of this encounter
--- OUTSIDE RECORDS SUMMARY | 2025-03-02 10:19 | XMS_ITS | Encounter Summary ---
Author Organization [facility] Address [address] [place] [address] Phone Care Team Providers Care Glass Blower Name Role Phone Ugo Gloria MD Primary Care Provider [phone] Bob Jones MD Primary Care Provider + [phone] Chon Schuler MD Primary Care Provider + Montserrat Shah WAREHOUSE PICKER Unavailable [phone] Jose A Barry MD Unavailable [phone] [facility] ErOmer MD PhD Unavailable Meg Correa MD Unavailable [phone] Megan Hernandez DO Unavailable [phone] Sabina BARNEY MD, Robert J. Unavailable [phone] Ric De La Garza MD Unavailable [phone] Rosendo Jarrett MD Unavailable [phone] Cade Monk MD Primary Care Provider Chon Schuler MD Primary Care Provider + Cade Monk MD Primary Care Provider [phone] Raza Houston MD Unavailable Shaan Varela TELEPHOTO INSTALLER Unavailable Ina Nelson MA Unavailable Unavailable Jazmin Alex MA Unavailable Encounter Details Date Type Department Care Team (Late st Contact Info) Description 05/01/2012 Orders Only [facility] Scanning, Provider Social History Tobacco Use Types Packs/Day Years Used Date Smoking Tobacco: Never Assessed Comments Unknown Sex and Gender Information Value Date Recorded Sex Assigned at Not on file 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 Gender Identity Not on file Sexual Orientation Not on file documented as of this encounter Plan of Treatment Not on file documented as of this encounter Procedures Procedure Name Priority Date/Time Associated Diagnosis Comments SCAN - LABS 05/01/2012 documented in this encounter Results * SCAN - LABS (05/01/2012) us Provider Scanning Final Result documented in this encounter Visit Diagnoses Not on filedocumented in this encounter Care Teams Glass Blower Relationship Specialty Start Date End Date Ugo Gloria MD [address] [place] [address] PCP - General 11/23/16 02/05/17 Bob Jones MD [address] [place] [address] PCP - General 02/06/17 02/10/17 Chon Schuler MD [address] [facility] [address] [address] PCP - General 02/11/17 07/18/21 Cade Monk MD [address] [place] [address] PCP - General Family Medicine 07/19/21 07/31/21 Chon Schuler MD [address] [place] [address] [address] [facility] [address] [place] [address] PCP - General 08/01/21 08/03/21 Cade Monk MD [address] [facility] [place] [address] PCP - General Family Medicine 08/04/21 Montserrat Shah, WAYNE [address] [place] [address] [address] [address] Nurse Practitioner Surgery 03/18/18 Jose A Barry MD [address] [place] [address] [address] [address] Referring Physician Neurosurgery 03/18/18 Omer Capellan MD PhD [address] [place] [address] [place] [address] Referring Physician Neurology 03/18/18 Meg Correa MD [address] [place] [address] [place] [address] Referring Physician Urology 03/18/18 Megan Hernandez DO [address] [place] [address] Consulting Physician Obstetrics and Gynecology 03/19/18 Ric Muhammad III, MD [address] [facility] [place] [id number] Referring Physician Neurosurgery 01/21/19 Ric De La Garza MD [address] [address] Consulting Physician Gastroenterology 02/14/19 04/09/21 Rosendo Jarrett MD [address] [place] [address] Consulting Physician Gastroenterology 08/06/20 Raza Houston MD [address] [facility] [address] [place] [address] Consulting Physician Neurology 06/16/22 Shaan Varela LPN [address] [place] [address] [address] [place] [address] ACO Care Assistant Professor In Family Studies 07/09/22 Ina Nelson MA [address] [place] [address] [address] [place] [address] ACO Care Assistant Professor In Family Studies 01/18/23 01/19/23 Jazmin Alex MA [address] [place] [address] [address] [place] [address] ACO Care Assistant Professor In Family Studies 06/02/24 06/02/24 documented as of this encounter
--- OUTSIDE RECORDS SUMMARY | 2025-03-02 10:19 | XMS_ITS | Encounter Summary ---
Author Organization [facility] Address [address] [place] [address] Care Team Providers Care Brim Presser Name Role Phone Theresa Hernadez MD Primary Care Provider [phone] Encounter Details Date Type Department Care Team (Late st Contact Info) Description 01/31/2006 Outpatient Historical [facility] Internal Medicine Medical [place] A [facility] [address] [facility] [address] [address] Theresa Hernadez MD [address] [place] [address] [address] [place] [address] Social History Tobacco Use Types Packs/Day Years Used Date Smoking Tobacco: Never Assessed Comments Unknown Sex and Gender Information Value Date Recorded Sex Assigned at Not on file 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 Gender Identity Not on file Sexual Orientation Not on file documented as of this encounter Last Filed Vital Signs Vital Sign Reading Time Taken Comments Blood Pressure 146/90 01/31/2006 11:45 AM CDT Pulse 64 01/31/2006 11:45 AM CDT Temperature 36.9 C (98.4 F) 01/31/2006 11:45 AM CDT Respiratory Rate - - Oxygen Saturation - - Inhaled Oxygen Concentration - - Weight 67.6 kg (149 lb) 01/31/2006 11:45 AM CDT Height - - Body Mass Index 24.42 01/21/2006 10:00 AM CDT documented in this encounter Plan of Treatment Not on file documented as of this encounter Visit Diagnoses Not on filedocumented in this encounter Care Teams Brim Presser Relationship Specialty Start Date End Date Theresa Hernadez MD [address] [id number] PCP - General 01/31/06 05/05/14 documented as of this encounter
--- OUTSIDE RECORDS SUMMARY | 2025-03-02 10:19 | XMS_ITS | Referral Summary ---
Author Organization [facility] Address [address] [place] [address] Care Team Providers Care Development Assistant Name Role Phone Montserrat Shah NP Unavailable Jose A Barry MD Unavailable [phone] [facility] PhD Unavailable CorreaMeg barahona MD Unavailable [phone] Megan Hernandez DO Unavailable [phone] Sabina BARNEY MD, Robert J. Unavailable Rosendo Jarrett MD Unavailable Cade Monk MD Primary Care Provider [phone] Raza Houston MD Unavailable Shaan Varela LPN Unavailable Encounters Date Type Department Care Team Description 02/19/2025 10:12 AM CDT - 02/19/2025 11:59 PM CDT Hospital Encounter [facility] Radiology at [facility] [address] [place] [address] Bob Rivas MD Spinal stenosis of lumbar region at multiple levels; Lumbar myelopathy (HCC); Lumbar back pain with radiculopathy affecting left lower extremity; Numbness and tingling of lower extremity Discharge Disposition: Discharge to home or self care 02/04/2025 Telephone [facility] Orthopaedic Surgery [address] [facility] [facility] 2[address] [place] [address] Semaj Moreira CMA 02/01/2025 Telephone [facility] Orthopaedic Surgery [address] 2[address] [place] [address] Lyssa Gallo NP 02/01/2025 Orders Only [facility] Orthopaedic Surgery [address] 2[address] [place] [address] Lyssa Gallo EMS DRIVER Spinal stenosis of lumbar region at multiple levels (Primary Dx); Lumbar myelopathy (HCC); Lumbar back pain with radiculopathy affecting left lower extremity; Numbness and tingling of lower extremity 01/26/2025 Results Follow-Up [facility] Orthopaedic Surgery [address] 2[address] [place] [address] Lyssa Gallo NP MRI Lumbar Spine WO Contrast 01/25/2025 Telephone [facility] Family Medicine at [address] [place] [address] Cade Monk MD 01/22/2025 Orders Only [facility] Orthopaedic Surgery [address] [place] [address] 2nd Floor [address] [place] [address] Lyssa Gallo NP Spinal stenosis of lumbar region at multiple levels; Lumbar myelopathy (HCC) 01/22/2025 8:45 AM CDT Ancillary Procedure [facility] Orthopaedic Surgery [address] [place] [address] Spinal stenosis of lumbar region at multiple levels; Lumbar myelopathy (HCC); Lumbar back pain with radiculopathy affecting left lower extremity 01/22/2025 1:34 PM CDT - 01/22/2025 11:59 PM CDT Hospital Encounter [facility] Imaging [address] [address] Spinal stenosis of lumbar region at multiple levels; Lumbar myelopathy (HCC) Discharge Disposition: Discharge to home or self care 01/22/2025 8:45 AM CDT Procedure visit [facility] Orthopaedic Surgery [address] [place] [address] Bunny White MD Spinal stenosis of lumbar region at multiple levels (Primary Dx); Numbness and tingling of lower extremity 01/15/2025 Orders Only [facility] Family Medicine at [address] [place] [address] Cade Monk MD 12/24/2024 12:30 PM CDT Ancillary Procedure Radiology - [address] [place] [address] [address] [place] [address] Spinal stenosis of lumbar region at multiple levels; Lumbar myelopathy (HCC) 12/24/2024 Telephone Radiology - [address] [place] [address] [address] [place] [address] Isabelle Napoles RT 12/24/2024 10:30 AM CDT Ancillary Procedure Radiology - Count includes the [facility] Ortho [address] [place] [address] [address] [place] [address] Pain of upper extremity, unspecified laterality 12/24/2024 11:00 AM CDT Office Visit [facility] Orthopaedic Surgery [address] 2[address] [place] [address] Lyssa Gallo NP Spinal stenosis of lumbar region at multiple levels (Primary Dx); Lumbar myelopathy (HCC); Lumbar back pain with radiculopathy affecting left lower extremity 12/23/2024 Telephone [facility] Family Medicine at [address] [place] [address] Cade Monk MD Symptom Based Call 12/21/2024 Orders Only [facility] Orthopaedic Surgery [address] [place] [address] 2nd Floor [address] [place] [address] Lyssa Gallo NP Pain of upper extremity, unspecified laterality (Primary Dx) 12/21/2024 Telephone [facility] Family Medicine at [address] [place] [address] Cade Monk MD Symptom Based Call; Medical Question/Miscellaneou s 12/15/2024 1:30 PM CDT Office Visit [facility] Orthopaedic Surgery [address] [place] [address] Yuniel [place] MD Pain in joint involving pelvic region and thigh, unspecified laterality (Primary Dx) 12/08/2024 1:45 PM INSURANCE AUDITOR Office Visit [facility] Family Medicine at [address] [place] [address] Cade Monk MD Essential hypertension (Primary Dx); Chronic abdominal pain; Irritable bowel syndrome with both constipation and diarrhea; Chronic pain syndrome; OSBALDO (generalized anxiety disorder); Age-related physical debility; Gastroesophageal reflux disease without esophagitis; Postmenopausal status from Last 3 Months Allergies Active Allergy Reactions Criticality Noted Date Comments Lubiprostone Other (See comments) Low 04/12/2021 Mental status changes Varenicline Nausea only Low 02/16/2019 Doxycycline Hyclate Hives High 01/31/2006 Linaclotide Other (See comments) Low 04/12/2021 Mental status changes Pregabalin Other (See comments) Low 12/14/2021 I zone out Morphine Hallucinations Medium 10/18/2021 Sulfa (Sulfonamide Antibiotics) Swelling Medium 01/31/2006 Sulfamethoxazole-Trimet hoprim Swelling Medium 06/02/2009 Varenicline Tartrate Nausea only Low 01/09/2022 Medications multivit minerals-iron- FA-calcium (THERA-M) 9 mg iron-400 mcg tabletIndicati ons:Vitamin Deficiency Prevention Take 1 tablet by mouth daily Active cycloSPORINE (RESTASIS) 0.05 % ophthalmic emulsion 1 drop 2 (two) times a day Active hyoscyamine (OSCIMIN) 0.125 mg Take 2 tablets (0.25 mg total) by mouth every 6 (six) hours as needed 11/16/19 23 Active polyvinyl alcohol-povido ne (REFRESH CLASSIC) 1.4-0.6 % dropperette Administer into both eyes 4 (four) times a day as needed for dry eyes Active erythromycin DR (AMBAR-TAB) 500 mg tablet,delayed release (DR/EC) Take 1 tablet (500 mg total) by mouth daily 07/27/20 24 Active lisinopriL (PRINIVIL,ZEST RIL) 10 mg tablet TAKE 1 TABLET BY MOUTH EVERY DAY 90 tablet 1 12/16/19 25 Active celecoxib (CeleBREX) 100 mg capsuleIndicat ions:Osteoarth ritis Take 1 capsule (100 mg total) by mouth 2 (two) times a day 30 capsule 12/16/[address] (CYMBALTA) 60 mg capsuleIndicat ions:Other specified anxiety disorders TAKE 1 CAPSULE BY MOUTH TWICE A DAY 200 capsule 1 01/16/20 25 Active traMADoL (ULTRAM) 50 mg tablet Take 1-2 tablets (50-100 mg total) by mouth every 6 (six) hours as needed for pain for pain 240 tablet 01/16/20 25 Active amitriptyline (ELAVIL) 10 mg tablet TAKE 1 TABLET BY MOUTH EVERYDAY AT BEDTIME 90 tablet 01/16/20 25 Active meclizine (ANTIVERT) 25 mg tablet TAKE 1 TABLET BY MOUTH EVERY 6 HOURS NEEDED FOR DIZZINESS. 30 tablet 01/22/[address] (PROTONIX) 40 mg EC tablet TAKE 1 TABLET BY MOUTH EVERY DAY 100 tablet 1 02/24/20 25 Active ALPRAZolam (XANAX) 1 mg tabletIndicati ons:OSBALDO (generalized anxiety disorder) TAKE 1 TABLET BY MOUTH THREE TIMES A DAY 90 tablet 02/25/[address] (PROTONIX) 40 mg EC tablet TAKE 1 TABLET BY MOUTH EVERY DAY 90 tablet 1 06/25/20 24 025 Discontinued amoxicillin 500 mg capsule 12/23/19 25 025 Discontinued( erapy completed) ALPRAZolam (XANAX) 1 mg tabletIndicati ons:OSBALDO (generalized anxiety disorder) TAKE 1 TABLET BY MOUTH THREE TIMES A DAY 90 tablet 01/19/20 25 025 Discontinued Active Problems Problem Noted Date Diagnosed Date Medicare annual wellness visit, subsequent 05/23 Tremors of nervous system 11/22/2022 Falls frequently 07/06/2022 Age-related physical debility 07/06/2022 Major depressive disorder in remission 2 History of colon polyps 11/07/2021 Overview (11/07/2021): Added automatically from request for surgery [id number] Small intestinal bacterial overgrowth (SIBO) Assessment & Plan (10/18/2021 11:31 AM INSURANCE AUDITOR): She could not afford the cost of rifaximin. Had been treated with Levaquin and Flagyl in the past. Will repeat hydrogen breath test. Assessment & Plan (08/30/2021 9:14 AM INSURANCE AUDITOR): Patient was treated with levaquin and flagyl. She however reports no significant improvement. She still has significant abdominal pain and bloating. I will retreat her with rifaximin. She is willing to pay lopez for the medication if not covered by her insurer. Neutrophilia 07/19/2021 Assessment & Plan (08/30/2021 9:14 AM INSURANCE AUDITOR): White count [id number]. She is concerned because her mother had blood d isorder . I offered to refer her to accounting advisory services manager for evaluation but she declined at this time. She promises to follow up with her primary care physician. Chronic abdominal pain 07/12/2021 Assessment & Plan (08/30/2021 9:16 AM INSURANCE AUDITOR): Chronic abdominal pain. Severe. Has IBS. She is concerned about pancreatitis. She reports to have seen pain management doctor in the past. She requested for treatment with . I reviewed her previous CT scan of the abdomen that revealed no evidence of pancreatitis. Will check amylase and lipase level. was prescribed. Assessment & Plan (07/12/2021 1:25 PM CDT): Moderately severe. Associated with mild tenderness. Even though the patient has IBS she insists that the correct of this pain is different. I will obtain CT scan abdomen and pelvis to evaluate for acute inflammatory process. Check CBC and CMP. The plan of care was discussed with the patient's daughter who accompanied her for the visit. Chronic pain syndrome 02/06/2021 Tear of meniscus of left knee as current injury 08/09/2020 Spinal stenosis of lumbar region at multiple lev els 12/18/2017 Polyneuropathy 11/28/2017 Tobacco use 10/10/2017 Gait instability 10/09/2017 Urinary urgency 05/09/2017 Osteopenia 04/24/2017 Microscopic hematuria 03/31/2017 Dyslipidemia 03/27/2017 Gastroesophageal reflux disease without esophagi tis 11/17/2016 OSBALDO (generalized anxiety disorder) 11/06/2016 Irritable bowel syndrome 11/06/2016 Assessment & Plan (10/18/2021 11:37 AM INSURANCE AUDITOR): Severe. The patient claims she was unable to obtain rifaximin because it was declined by her insurance company. She is quite miserable. She reportedly did better when she took , but she could not afford the prescription co-pay . I will prescribe the medication again and appeal the insurance companies decision. I will add nortriptyline at bedtime to her regimen if you CT does not show any acute disease to explain the severe abdominal pain. I could not increase the dosage of Cymbalta because she is on the maximum approved dose. Assessment & Plan (08/30/2021 9:19 AM INSURANCE AUDITOR): Severe. Hydrogen breath test suggestive of SIBO. She did not respond to the face course of antibiotic. She was advised to continue probiotics. Rifaximin is prescribed. FODMAP diet recommend. Referred to automotive electrician helper. Plan of care discussed with patient and her daughter. Total time spent on the visit was 45 minutes. More than 50% of the time was spent discussing dietary recommendations and treatment options. Assessment & Plan (07/12/2021 1:24 PM CDT): Severe. She has IBS with constipation. She has tried various medications including (Linzess, Amitiza, Motegrity, cognitive and behavioral therapy without relief. She currently complains of severe bloating. She has regular bowel movements since she is able to take MiraLax 17 g daily. I encouraged her to continue MiraLax at this time. Start on dicyclomine 10 mg tid p.r.n. Check hydrogen breath test to rule out small intestinal bacterial overgrowth. Cervical spondylosis with myelopathy 12/02/2009 Overview (06/18/2018): MRI 12/22 - Multilevel degenerative changes of the cervical spine with severe canal stenosis from C5 to C7. Paresthesias right index finger Essential hypertension 12/02/2009 Overview (03/06/2018): Overview: Lactose intolerance 12/02/2009 Resolved Problems Problem Noted Date Diagnosed Date Resolved Date Adverse reaction to benzodiazepine 07/06/2022 12/27/2022 Frequent falls 06/14/2022 05/27/2024 Hypercholesterolemia 06/14/2022 024 Epigastric pain 10/18/2021 05/02/2022 Assessment & Plan (10/18/2021 11:33 AM INSURANCE AUDITOR): Severe. She describes a different pain character, radiating to her back. Describes the severity as 10/10. Cause is unclear but I am concerned about vascular cause of pain versus peptic ulcer disease. Will obtain CT scan abdomen and pelvis as soon as possible. Will also schedule for Esophagogastroduodenoscopy. Bloating 07/12/2021 07/19/2021 Assessment & Plan (07/12/2021 1:26 PM CDT): Likely component of IBS. Had responded to Montegrity in the past, but not anymore. Will check hydrogen breath test to evaluate for small intestinal bacterial overgrowth. Chronic pain of both knees 09/11/2019 1 11/02/2023 Lightheadedness 06/10/2019 07/19/2021 Prediabetes 06/10/2019 07/19/2021 Recurrent falls 05/21/2019 07/19/2021 Sensation of pressure in bladder area 09/18/2018 07/19/2021 Edema 03/19/2018 07/19/2021 Overview (06/18/2018): Echo 03/24 - Normal global and regional left ventricular systolic function. Ejection Fraction is 61 %. Diastolic indices overall most consistent with Grade I DD (impaired myocardial relaxation without elevated filling pressures). Mild concentric LVH Positive antinuclear antibody 12/16/2017 10/10/2023 Disease of spinal cord 11/28/201710/10 Complaints of memory disturbance 10/09/2017 07/19/2021 Weakness 10/09/2017 07/19/2021 Dysphagia 05/14/2017 07/19/2021 Nephrolithiasis 05/09/2017 10/10/2023 Constipation 05/07/2017 12/08/2024 Urinary retention 05/07/2017 04/02/2018 Dysuria 04/26/2017 07/19/2021 Paresthesia 03/28/2017 10/10/2023 Chronic diarrhea 11/17/2016 07/19/2021 Pelvic pain in female 01/18/20142020 Noncompliance with medications 12/11/2011 09/02/2024 Allergic bronchitis 12/02/2009 07/19/20 Allergic rhinitis 12/02/2009 07/19/2021 Overview (03/06/2018): Overview: Small bowel obstruction ([facility]) 07/19/2021 Overview (06/18/2018): Admit 05/24 Immunizations Immunization Administration Dates Next Due H1N1 All Forms 05/31/2016 Influenza, Quadrivalent, Hig h Dose, Preservative Free, Intrr 07/11/2022(Deferred: Patient Refused),06/29/2021,06/02/2020 Influenza, Quadrivalent, Spl it, Preservative Free, Intramuscular 06/01/2019,07/04/2018,07/06/2013 Influenza, Trivalent, High D ose, Split, Preservative Free, Intramuscular 06/21/2017,07/05/2015 Influenza, Trivalent, IM (MDV) 07/02/2014,2011,07/12/2008 Influenza, Trivalent, Preser vative Free, Intramuscular 06/24/2017,06/12/2011 Influenza, Unspecified 06/07/2024(Deferr ed: Patient decision),10/10/2023,06/02/2020,2012,06/17/2012,06/20/2010 Moderna SARS-CoV-2 Monovalen t Vaccination (12+ YRS) 09/08/2021,12/20/2020,11/09/2020 Pneumococcal Conjugate PCV 13 05/31/2016, 015 Pneumococcal Conjugate, Unspecified 06/01/2019 Pneumococcal Polysaccharide PPV23 04/26/2017,02/2012 Tdap 07/02/2019 ZOSTER LIVE 04/11/2011,10/06/1999 ZOSTER Recombinant 09/21/2018,07/22/2018 Social History Tobacco Use Types Packs/Day Years Used Date Smoking Tobacco: Every Day Cigarettes 0.3 49.1 Started: 1973 Smokeless Tobacco: Never Tobacco Cessation:Ready to Q uit: Not Asked; Counseling Given: Not Answered Comments:smokes 5 cigs per day Alcohol Use Standard Drinks/Week Comments No 0 (1 standard drink = 0.6 oz pur e alcohol) Social Connection and Isolat ion Panel [NHANES] Answer Date Recorded In a typical week, how many times do you talk on the phone with family, friends, or neighbors? More than three times a week 06/15/2022 How often do you get togethe r with friends or relatives? Three times a week 06/15/2022 How often do you attend chur ch or tenriism services? More than 4 times per year 06/15/2022 Do you belong to any clubs o r organizations such as restoration groups, unions, fraternal or athletic groups, or school groups? No 06/15/2022 How often do you attend meet ings of the clubs or organizations you belong to? Never 06/15/2022 Are you , , di vorced, , never , or living with a partner? 06/15/2022 AUDIT-C Answer Date Recorded Frequency of Alcohol Consumption Not on file 09/02/2024 Q2: How many drinks containi ng alcohol do you have on a typical day when you are drinking? Patient does not drink Frequency of Binge Drinking Not on file 08/08 Overall Financial Resource Strain (CARDIA) Answe r Date Recorded How hard is it for you to pa y for the very basics like food, housing, medical care, and heating? Not hard at all 06/15/2022 PHQ-2 Answer Date Recorded PHQ-2 Total Score (If total score is 3 or more points, staff should administer the PHQ-9) 0 06/02/2024 Hunger Vital Sign Answer Date Recorded Within the past 12 months, y ou worried that your food would run out before you got the money to buy more. Never true 06/15/20 22 Within the past 12 months, t he food you bought just didn't last and you didn't have money to get more. Never true 06/15/2022 PRAPARE - Transportation Answer Date Re corded In the past 12 months, has l ack of transportation kept you from medical appointments or from getting medications? No 06/2022 In the past 12 months, has l ack of transportation kept you from meetings, work, or from getting things needed for daily living? No 06/15/2022 Housing Stability Vital Sign Answer Taurus e Recorded In the last 12 months, was t here a time when you were not able to pay the mortgage or rent on time? No 06/15/2022 In the last 12 months, how many places have you lived? 1 06/15/2022 In the last 12 months, was t here a time when you did not have a steady place to sleep or slept in a half-way (including now)? No 06/15/2022 Personal Safety Answer Date Recorded Have you ever been in or are you currently in a harmful physical or emotional relationship or is someone making you feel afraid or unsafe? Denies 02/19/2025 Comments No Sex and Gender Information Value Date Recorded Sex Assigned at Not on file Legal Sex Female 3:59 AM INSURANCE AUDITOR Gender Identity Not on file Sexual Orientation Not on file Last Filed Vital Signs Vital Sign Reading Time Taken Comments Blood Pressure 149/72 02/19/2025 11:20 AM CDT Pulse 84 02/19/2025 11:20 AM CDT Temperature 37 C (98.6 F) 12/08/2024 2:21 PM INSURANCE AUDITOR Respiratory Rate 0 02/19/2025 11:12 AM CDT Oxygen Saturation 99% 02/19/2025 11:20 AM CDT Inhaled Oxygen Concentration - - Weight 68 kg (150 lb) 02/19/2025 10:26 AM CDT Height 160 cm (5' 3) 02/19/2025 10:26 AM CDT Body Mass Index 26.57 02/19/2025 10:26 AM CDT Plan of Treatment Not on file Medical Devices Implanted Type Area Fuel Management Handler Device Identifier Shelf Expiration Date Model / Serial / Lot Allosource [id number] 17-19mm Freeze Dried Wedge Spine Graft Bone Tricortical Ilium - S0 - [id number] Implanted:Qty: 1 on 02/13/2021 by Ric Muhammad III, MD at [facility] Other - see comments N/A: Spine Cervical Allosource 02/24/2024 [id number] / 0 / [id number] Description:Tri-Cortical Ill ium Wedge Allosource [id number] 2.2cm Wedge Graft Bone Ilium - S0 - [id number] Implanted:Qty: 1 on 02/13/2021 by Ric Muhammad III, MD at [facility] Other - see comments N/A: Spine Cervical [employer]ource 02/28/2024 [id number] / 0 / [id number] Description:Tri-Cortical Harika um Wedge [facility] [id number] Mambo 45mm 6 Hole Modular Rumson 1 Step Lock Mechanism Spine - S0 - [id number] Implanted:Qty: 1 on 02/13/2021 by Ric Muhammad III, MD at [facility] Plate N/A: Spine Cervical [facility] 10/06/2065 CS 1822-45 / 0 / 0 [facility] [id number] Mambo 3.5mm 13mm Spine Cervical Screw Bone Silver Modular Plate - S0 - [id number] Implanted:Qty: 4 on 02/13/2021 by Ric Muhammad III, MD at [facility] Screw N/A: Spine Cervical [facility] 10/06/2065 CS 1830-13 / 0 / 0 [facility] Cs 1826-02 Mambo Clamp Spine Cervical Screw Bone Gold Modular Plate System - S0 - [id number] Implanted:Qty: 2 on 02/13/2021 by Ric Muhammad III, MD at [facility] Screw N/A: Spine Cervical [facility] 10/06/2065 CS 1826-02 / 0 / 0 Procedures Procedure Name Priority Date/Time Associated Diagnosis Comments IR EPIDURAL INJECTION LUMBOSACRAL W GUIDANCE Schedule Routine, Read Routine (OP Routine) 02/19/2025 11:11 AM CDT Spinal stenosis of lumbar region at multiple levels Lumbar myelopathy (HCC) Lumbar back pain with radiculopathy affecting left lower extremity Numbness and tingling of lower extremity MRI LUMBAR SPINE WO CONTRAST Schedule Routine, Read Routine (OP Routine) 01/22/2025 3:12 PM CDT Spinal stenosis of lumbar region at multiple levels Lumbar myelopathy (HCC) POCUS LIMITED EXTREMITY Schedule Routine, Read Routine (OP Routine) 01/22/2025 8:44 AM CDT Spinal stenosis of lumbar region at multiple levels Lumbar myelopathy (HCC) Lumbar back pain with radiculopathy affecting left lower extremity EMG/NCV Routine 01/22/2025 8:29 AM CDT Spinal stenosis of lumbar region at multiple levels Lumbar myelopathy (HCC) XR SPINE LUMBAR COMPLETE 4 OR MORE VIEWS Schedule Routine, Read Routine (OP Routine) 12/24/2024 12:45 PM CDT Spinal stenosis of lumbar region at multiple levels Lumbar myelopathy (HCC) XR SPINE THORACIC 2 VIEWS Schedule Routine, Read Routine (OP Routine) 12/24/2024 11:01 AM CDT Pain of upper extremity, unspecified laterality NV ARTHROCENTESIS ASPIR&/INJ MAJOR JT/BURSA W/O US Routine 12/15/2024 1:30 PM CDT Pain in joint involving pelvic region and thigh, unspecified laterality DEXA AXIAL SKELETON BONE DENSITY 1 OR MORE SITES Schedule Routine, Read Routine (OP Routine) 11/13/2023 Post-menopausal COLONOSCOPY 11/21/2021 8:39 AM INSURANCE AUDITOR SCREENING MAMMOGRAM BILATERAL W GEETHA Schedule Routine, Read Routine (OP Routine) 08/04/2021 11:36 AM CDT Breast cancer screening by mammogram HEPATITIS C ANTIBODY Routine Gen Lab 03/28/2017 12:46 PM CDT from Last 3 Months or Most Recently Relevant to Health Maintenance Results * IR Epidural Injection Lumbosacral W Guidance (Interlaminar) (02/19/2025 11:11 AM CDT) Narrative [facility] - 02/19/2025 11:14 AM CDT The images from this study are not interpreted by Radiology. Please refer to the physician's procedure / OR operative note. us Lyssa Ana Cleo EMS DRIVER IMG IR PROCEDURES Final R esult [facility] * MRI Lumbar Spine WO Contrast (01/22/2025 3:12 PM CDT) Anatomical Region Laterality Modality Spine N/A Magnetic Resonan ce 01/22/2025 3:38 PM CDT Impressions 01/22/2025 5:30 PM CDT Multilevel degenerative changes of the lumbar spine as described above. No high-grade spinal canal stenosis or neuroforaminal narrowing. Dictated by: Justin Poon M.D. The radiology attending physician has personally reviewed this study, and had reviewed and/or edited this written report and agrees with it. Electronically signed by: Gisele Monroy MD Narrative 01/22/2025 5:30 PM CDT EXAMINATION: Magnetic resonance imaging (MRI) of the lumbar spine without contrast HISTORY: 79 years-old Female with rule out myelopathy. TECHNIQUE: Multiplanar multi-weighted MRI of the lumbar spine was performed without intravenous contrast using the standard protocol. COMPARISON: Lumbar spine radiographs 01/03/2025. FINDINGS: Mild dextroscoliosis of the lumbar spine. 2 mm retrolisthesis of L2 on L3 and L3 on L4. 2 mm anterolisthesis of L4 on L5. Schmorl's node is noted at L1 superior endplates. Scattered intervertebral osseous hemangiomas. Modic type II degenerative endplate changes at L5-S1. Was, vertebral bodies demonstrate normal signal intensity on all sequences. There are no compression fractures. The conus medullaris is low-lying and terminates at the level of L2-L3 . The distal spinal cord signal intensity is normal. Disc desiccation and disc height loss most pronounced at L5-S1. Diffuse annular fissures throughout the lumbar spine. Right renal cortical cysts. Paraspinal muscle atrophy. The aorta is normal. Sacral Tarlov cysts. L1-L2: Broad disc bulge. There is mild facet arthropathy. There is no neuroforaminal stenosis. There is no spinal canal stenosis. L2-L3: Broad disc bulge. Ligamentum flavum infolding. There is moderate left mild right facet arthropathy. There is mild bilateral neuroforaminal stenosis. There is no spinal canal stenosis. L3-L4: Broad disc bulge. Ligamentum flavum infolding. There is mild to moderate bilateral facet arthropathy. There is no neuroforaminal stenosis. There is mild spinal canal stenosis. L4-L5: Broad disc bulge. Ligamentum flavum infolding. There is moderate bilateral facet arthropathy. There is mild bilateral neuroforaminal stenosis. There is mild spinal canal stenosis. L5-S1: Broad disc bulge. There is moderate right mild left facet arthropathy. There is mild bilateral neuroforaminal stenosis. There is no spinal canal stenosis. Procedure Note Gisele Monroy MD PhD - 01/22/2025 EXAMINATION: Magnetic resonance imaging (MRI) of the lumbar spine without contrast HISTORY: 79 years-old Female with rule out myelopathy. TECHNIQUE: Multiplanar multi-weighted MRI of the lumbar spine was performed without intravenous contrast using the standard protocol. COMPARISON: Lumbar spine radiographs 01/03/2025. FINDINGS: Mild dextroscoliosis of the lumbar spine. 2 mm retrolisthesis of L2 on L3 and L3 on L4. 2 mm anterolisthesis of L4 on L5. Schmorl's node is noted at L1 superior endplates. Scattered intervertebral osseous hemangiomas. Modic type II degenerative endplate changes at L5-S1. Was, vertebral bodies demonstrate normal signal intensity on all sequences. There are no compression fractures. The conus medullaris is low-lying and terminates at the level of L2-L3 . The distal spinal cord signal intensity is normal. Disc desiccation and disc height loss most pronounced at L5-S1. Diffuse annular fissures throughout the lumbar spine. Right renal cortical cysts. Paraspinal muscle atrophy. The aorta is normal. Sacral Tarlov cysts. L1-L2: Broad disc bulge. There is mild facet arthropathy. There is no neuroforaminal stenosis. There is no spinal canal stenosis. L2-L3: Broad disc bulge. Ligamentum flavum infolding. There is moderate left mild right facet arthropathy. There is mild bilateral neuroforaminal stenosis. There is no spinal canal stenosis. L3-L4: Broad disc bulge. Ligamentum flavum infolding. There is mild to moderate bilateral facet arthropathy. There is no neuroforaminal stenosis. There is mild spinal canal stenosis. L4-L5: Broad disc bulge. Ligamentum flavum infolding. There is moderate bilateral facet arthropathy. There is mild bilateral neuroforaminal stenosis. There is mild spinal canal stenosis. L5-S1: Broad disc bulge. There is moderate right mild left facet arthropathy. There is mild bilateral neuroforaminal stenosis. There is no spinal canal stenosis. IMPRESSION: Multilevel degenerative changes of the lumbar spine as described above. No high-grade spinal canal stenosis or neuroforaminal narrowing. Dictated by: Justin Poon M.D. The radiology attending physician has personally reviewed this study, and had reviewed and/or edited this written report and agrees with it. Electronically signed by: Gisele Monroy MD Lyssa Gallo EMS DRIVER IMG MRI PROCEDURES Final Result * POCUS LIMITED EXTREMITY (01/22/2025 8:44 AM CDT) Narrative [facility]ACS[facility]US[facility] - 01/22/2025 8:44 AM CDT This procedure was performed and interpreted by the provider. Please refer to the provider's procedure/OR operative note for results. Bunny White MD POCUS ORDERABLES Final Result [facility]PACS[facility]US[facility] * EMG/NCV WITH ULTRASOUND -Please select the performing region: [facility] (All Locations); Procedure performed at: [facility] (01/22/2025 8:29 AM CDT) Anatomical Region Laterality Modality Other Lyssa Gallo EMS DRIVER NEUROLOGY ORDERABLES Anika l Result * X-ray lumbar spine complete 4+ views (12/24/2024 12:45 PM CDT) Anatomical Region Laterality Modality Spine N/A Computed Radiogr aphy 12/24/2024 2:56 PM CDT Impressions 12/24/2024 5:06 PM CDT 1. Multilevel degenerative disease, most prominent and severe from L5 to S1. Dictated by: Lashay Bal MD The radiology attending physician has personally reviewed this study, and had reviewed and/or edited this written report and agrees with it. Electronically signed by: Noel Black M.D. Narrative 12/24/2024 5:06 PM CDT EXAMINATION: XR SPINE LUMBAR 4 OR MORE VIEWS HISTORY: Back pain FINDINGS: Comparison is made with radiograph dated 06/26/2022. Unchanged lumbar dextroscoliosis. Mild left superior pelvic obliquity. Vertebral body heights are maintained. Multilevel degenerative disc disease, most prominent and severe from L5 to S1. No spondylolisthesis. No dynamic motion on flexion or extension. Atherosclerosis of the abdominal aorta. Advanced lumbar facet arthropathy. Procedure Note Noel Carrera MD - 12/24/2024 EXAMINATION: XR SPINE LUMBAR 4 OR MORE VIEWS HISTORY: Back pain FINDINGS: Comparison is made with radiograph dated 06/26/2022. Unchanged lumbar dextroscoliosis. Mild left superior pelvic obliquity. Vertebral body heights are maintained. Multilevel degenerative disc disease, most prominent and severe from L5 to S1. No spondylolisthesis. No dynamic motion on flexion or extension. Atherosclerosis of the abdominal aorta. Advanced lumbar facet arthropathy. IMPRESSION: 1. Multilevel degenerative disease, most prominent and severe from L5 to S1. Dictated by: Lashay Bal MD The radiology attending physician has personally reviewed this study, and had reviewed and/or edited this written report and agrees with it. Electronically signed by: Noel Black M.D. us Lyssa Gallo EMS DRIVER IMG XR PROCEDURES Final R esult * X-ray thoracic spine 2 views (12/24/2024 11:01 AM CDT) Anatomical Region Laterality Modality Spine N/A Computed Radiogr aphy 12/24/2024 11:0 7 AM CDT Impressions 12/24/2024 11:07 AM CDT Mild multilevel thoracic degenerative disc changes. Electronically signed by: Bob Mays D.O. Narrative 12/24/2024 11:07 AM CDT EXAMINATION: XR SPINE THORACIC 2 VIEWS HISTORY: THORACIC PAIN COMPARISON: Radiographs 10/30/2024 FINDINGS: Mild thoracolumbar levoscoliosis centered at T9-T10. No spondylolisthesis. Normal vertebral body heights noting suboptimal visualization of the upper thoracic spine on lateral view due to overlapping structures. Mild multilevel degenerative disc changes, greatest at T5-T9. Lower cervical anterior fusion hardware. Procedure Note Bob Mays DO - 12/24/2024 EXAMINATION: XR SPINE THORACIC 2 VIEWS HISTORY: THORACIC PAIN COMPARISON: Radiographs 10/30/2024 FINDINGS: Mild thoracolumbar levoscoliosis centered at T9-T10. No spondylolisthesis. Normal vertebral body heights noting suboptimal visualization of the upper thoracic spine on lateral view due to overlapping structures. Mild multilevel degenerative disc changes, greatest at T5-T9. Lower cervical anterior fusion hardware. IMPRESSION: Mild multilevel thoracic degenerative disc changes. Electronically signed by: Bob Mays D.O. us Lyssa Gallo EMS DRIVER IMG XR PROCEDURES Final R esult * NV ARTHROCENTESIS ASPIR&/INJ MAJOR JT/BURSA W/O US (12/15/2024 1:30 PM CDT) Narrative Yuniel Horton MD - 12/15/2024 1:30 PM CDT Yuniel Horton MD 12/15/2024 4:52 PM Large Joint Injection: bilateral knee Performed by: uYniel Horton MD Authorized by: Yuniel Horton MD Large Joint Injection/Aspiration: Consent Given by: Patient Verbal consent obtained: Yes Supporting Documentation: Indications: Pain Procedure Details: Location: Knee Site: Bilateral knee Needle Size: 18 G Approach: Superior lateral Ultrasound guided: No Fluroscopic guidance: No Medications Right Large Joint Injection: 7 mL BUPivacaine 0.25 % (2.5 mg/mL); 120 mg triamcinolone 40 mg/mL Medications Left Large Joint Injection: 7 mL BUPivacaine 0.25 % (2.5 mg/mL); 120 mg triamcinolone 40 mg/mL The risks and benefits of the injections were reviewed with the patient. The risks include, but are not limited to, bleeding, infection, and continued pain. The patient expressed understanding and agreed to proceed. us Yuniel Horton MD IN CLINIC/BEDSIDE OR DERABLES Final Result * Dexa Axial Skeleton Bone Density 1 Or 2 Site (11/13/2023) Anatomical Region Laterality Modality Body N/A Radiographic Le ging 11/13/2023 us Cade Monk MD IMG DXA PROCEDURES Final Resu lt * COLONOSCOPY (11/21/2021 8:39 AM INSURANCE AUDITOR) Anatomical Region Laterality Modality Other Narrative Procedure Note Mayte Henson MD - 11/21/2021 8:39 AM CST [facility] End[facility] Patient Name: Cherise Fields Procedure Date: 11/21/2021 8:39 AM Date of : 1945 Admit Type: Outpatient Age: 76 Gender: Female Note Status: Finalized Attending MD: Mayte Henson M.D. Procedure Date: 11/21/2021 Procedure: Colonoscopy Indications: Generalized abdominal pain, Weight loss Providers: Mayte Henson M.D., Kiah Brooke SURGICAL ONCOLOGIST (Anesthesia Staff), Eloy Lo RN, Mattie Luna RN, Rolando Moreira, Net Developer Referring MD: Cade Monk M.D. Medicines: Monitored Anesthesia Care Complications: No immediate complications. Estimated Blood Loss: Estimated blood loss was minimal. Procedure: Pre-Anesthesia Assessment: - Prior to the procedure, a History and Physicalwas performed, and patient medications and allergieswere reviewed. The patient is competent. The risks and benefits of the procedure and the sedation optionsand risks were discussed with the patient. Allquestions were answered and informed consent was obtained. Patient identification and proposed procedure were verified by the physician, the nurse and the lead cashier in the procedure room. Mental Status Examination: alert and oriented. AirwayExamination: normal oropharyngeal airway and neck mobility. Respiratory Examination: clear to auscultation. CV Examination: normal. Prophylactic Antibiotics: The patient does not require prophylactic antibiotics. Prior Anticoagulants: The patient has taken no previous anticoagulant or antiplatelet agents. ASA Grade Assessment: III - A patient with severesystemic disease. After reviewing the risks and benefits,the patient was deemed in satisfactory condition to undergo the procedure. The anesthesia plan was touse monitored anesthesia care (MAC). Immediately priorto administration of medications, the patient was re-assessed for adequacy to receive sedatives. The heart rate, respiratory rate, oxygen saturations, blood pressure, adequacy of pulmonary ventilation,and response to care were monitored throughout the procedure. The physical status of the patient was re-assessed after the procedure. - The risks and benefits of the procedure and the sedation options and risks were discussed with the patient. All questions were answered and informed consent was obtained. After I obtained informed consent, the scope was passed under direct vision. Throughout theprocedure, the patient's blood pressure, pulse, and oxygen saturations were monitored continuously. The scopewas passed under direct vision. The Colonoscope was introduced through the anus and advanced to the the terminal ileum. The colonoscopy was performedwithout difficulty. The patient tolerated the procedurewell. The quality of the bowel preparation was adequate.The bowel preparation used was polyethylene glycol(PEG) and bisacodyl tablets via split dose instruction. Findings: The terminal ileum appeared normal. Biopsies were taken with a cold forceps for histology. Estimated blood loss was minimal. A 2 mm polyp was found in the ascending colon. The polyp was sessile. The polyp was removed with a piecemeal technique using a cold biopsy forceps. Resection and retrieval were complete. Estimated blood losswas minimal. Estimated blood loss was minimal. The descending colon appeared normal. Biopsies for histology weretaken with a cold forceps from the descending colon for evaluation of microscopic colitis. The exam was otherwise without abnormality on direct and retroflexion views. Impression: - The examined portion of the ileum was normal. Biopsied. - One 2 mm polyp in the ascending colon, removed piecemeal using a cold biopsy forceps. Resected and retrieved. - The descending colon is normal. Biopsied. - The examination was otherwise normal on directand retroflexion views. Recommendation: - Await pathology results. - Continue present medications. - Repeat colonoscopy is not recommended. Procedure Code(s): --- Professional --- 28964, Colonoscopy, flexible; with biopsy, singleor multiple Diagnosis Code(s): --- Professional --- K63.5, Polyp of colon R10.84, Generalized abdominal pain R63.4, Abnormal weight loss CPT copyright 2019 [employer]. All rights reserved. The codes documented in this report are preliminary and upon door to door selling agent reviewmay be revised to meet current compliance requirements. Electronically signed by Mayte Henson M.D. Mayte Henson M.D. 11/21/2021 10:02:01 AM Number of Addenda: 0 Note Initiated On: 11/21/2021 8:39 AM Mayte Henson MD ENDOSCOPY PROCEDURES Fi nal Result * SCREENING MAMMOGRAM BILATERAL W GEETHA (08/04/2021 11:36 AM CDT) Anatomical Region Laterality Modality Breast Bilateral Mammography Impressions 08/08/2021 8:10 AM CDT BI-RADS ATLAS category (overall): 2 Benign There is no mammographic evidence of malignancy. A 1 year screening mammogram is recommended. The patient has been or will be contacted. We recommend annual screening mammography for women at average risk of breast cancer beginning at age 40, based on guidelines of the [employer] (ACR Practice Parameter for the Performance of Screening and Diagnostic Mammography) and [employer]. For women with and elevated risk of breast cancer, please refer to the ACR Practice Parameter for specific screening recommendations. The patient will be entered into a reminder system with a target due date of 1 year for her next screening exam. Narrative 08/08/2021 8:10 AM CDT SCREENING MAMMOGRAM BILATERAL W GEETHA: 08/04/21 The study was acquired using full field digital technology and interpreted from soft copy. 2D digital mammographic views, as well as 3D digital tomosynthesis were performed in the CC and MLO projections. CLINICAL: Breast cancer screening by mammogram Medical history includes hypertension. History of breast cancer in Neg Hx. COMPARISONS: 02/20/2019 Breast Imaging Screening Outside Reference 02/14/2018 Breast Imaging Screening Outside Reference 02/08/2017 Breast Imaging Screening Outside Reference BREAST TISSUE: The breasts are heterogeneously dense, which may obscure small masses. FINDINGS: There are benign calcifications in both breasts. No suspicious masses, suspicious calcifications, or other suspicious findings are seen within either breast. There has been no suspicious change. us Cade Monk MD IMG MAMMO PROCEDURES Final Re sult * Hepatitis C antibody (03/28/2017 12:46 PM CDT) Hep C Ab Nonreactive Nonreactive [facility] Comment: Interpretive Data Positive and greyzone results should be confirmed by a molecular method. If positive or greyzone, a second separately collected sample should be submitted for Hepatitis C Virus RNA. Detection and Quantitation by Real-Time Reverse Warp Spooler-PCR.Current Interpretive data was last revised on 2017. 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 Use antibiotics, IV Fluids, and medical treatment unless specifically selected below: No intubationNo non-invasive ventilationNo cardioversionNo internal / external pacemakerNo vasopressors * Full Code Date Activated Date Inactivated Comments 06/14/2022 4:04 PM 06/14/2022 4:33 PM * Full Code Date Activated Date Inactivated Comments 02/13/2021 11:36 AM 02/14/2021 2:57 PM * Full Code Date Activated Date Inactivated Comments 05/26/2018 6:14 PM 05/28/2018 2:36 PM Care Teams Development Assistant Relationship Specialty Start Date End Date Cade Monk MD [address] [place] [address] PCP - General Family Medicine 08/04/21 Montserrat Shah, WAYNE Nurse Practitioner Surgery 03/18/18 Jose A Barry MD Referring Physician Neurosurgery 03/18/18 Omer Capellan MD PhD [address] [address] Referring Physician Neurology 03/18/18 Meg Correa MD [address] [facility] [place] [address] [place] [place] [address] Referring Physician Urology 03/18/18 Megan Hernandez DO [address] [place] [address] Consulting Physician Obstetrics and Gynecology 03/19/18 Ric Muhammad III, MD [address] [place] [address] Referring Physician Neurosurgery 01/21/19 Rosendo Jarrett MD [address] [place] [address] Consulting Physician Gastroenterology 08/06/20 Raza Houston MD [address] [id number] Consulting Physician Neurology 06/16/22 Shaan Varela LPN [address] [place] [address] [address] [place] [address] ACO Care Building Maintenance Repairer 07/09/22
--- OUTSIDE RECORDS SUMMARY | 2025-03-02 10:19 | XMS_ITS | Encounter Summary ---
Author Organization [facility] Address [address] [place] [address] Phone Care Team Providers Care Classroom Paraprofessional Name Role Phone Montserrat Shah NP Unavailable Jose A Barry MD Unavailable [phone] [facility] PhD Unavailable Meg Correa MD Unavailable [phone] Megan Hernandez DO Unavailable [phone] Sabina BARNEY MD, Ric Wilks Unavailable Rosendo Jarrett MD Unavailable [phone] Cade Monk MD Primary Care Provider Raza Houston MD Unavailable Shaan Varela LPN Unavailable [phone] Encounter Details Date Type Department Care Team (Latest Contact Info) Description 01/26/2025 Results Follow-Up [facility] [address] [facility] 2[address] [place] [address] Lyssa Gallo NP [address] [place] [address] MRI Lumbar Spine WO Contrast Social History Tobacco Use Types Packs/Day Years Used Date Smoking Tobacco: Every Day Cigarettes 0.3 49.1 Started: 1973 Smokeless Tobacco: Never Comments:smokes 5 cigs per d ay Alcohol Use Standard Drinks/Week Comments No 0 [...] 06/15/2022 How often do you attend chur or presybeterian services? More than 4 times per year 06/15/2022 Do you belong to any clubs o r organizations such as muslim groups, unions, fraternal or athletic groups, or [...] place to sleep or slept in a intermediate (including now)? No 06/15/2022 Personal Safety Answer Date Recorded Have you ever been in or are you currently in a harmful physical or emotional relationship or is someone making you feel afraid or unsafe? 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 Gender Identity Not on file Sexual Orientation Not on file documented as of this encounter Miscellaneous Notes * Telephone Encounter - Cade Monk MD - 01/27/2025 12:43 PM CDT Renal cyst, benign, can discuss at FU documented in this encounter Plan of Treatment Not on file documented as of this encounter Visit Diagnoses Not on filedocumented in this encounter Care Teams Classroom Paraprofessional Relationship Specialty Start Date End Date Cade Monk MD [address] [place] [address] PCP - General Family Medicine 08/04/21 Montserrat Shah NP Nurse Practitioner Surgery 03/18/18 Jose A Barry MD Referring Physician Neurosurgery 03/18/18 Omer Capellan MD PhD [address] [place] [address] Referring Physician Neurology 03/18/18 Meg Correa MD [address] [place] [address] Referring Physician Urology 03/18/18 Megan Hernandez DO [address] [place] [address] Consulting Physician Obstetrics and Gynecology 03/19/18 Ric Muhammad III, MD [address] [place] [address] Referring Physician Neurosurgery 01/21/19 Rosendo Jarrett MD [address] [place] [address] Consulting Physician Gastroenterology 08/06/20 Raza Houtson MD [address] [facility] [address] [place] [address] Consulting Physician Neurology 06/16/22 Shaan Varela LPN [address] [facility] [address] [place] [address] ACO Care Websphere Consultant 07/09/22 documented as of this encounter
--- OUTSIDE RECORDS SUMMARY | 2025-03-02 10:19 | XMS_ITS | Clinical Summary ---
Author Organization [facility] Address [address] [place] [address] Care Team Providers Care Substation Mechanic Name Role Phone Montserrat Shah NP Unavailable Jose A Barry MD Unavailable [facility] MD PhD Unavailable [facility] Unavailable [phone] Megan Hernandez DO Unavailable [phone] Sabina BARNEY MD, Ric Wilks Unavailable Rosendo Jarrett MD Unavailable Cade Monk MD Primary Care Provider [phone] Raza Houston MD Unavailable [phone] Shaan Varela LPN Unavailable [phone] Allergies Active Allergy Reactions Criticality Noted Date [...] amoxicillin 500 mg capsule 12/23/19 25 025 Discontinued(Th erapy completed) ALPRAZolam (XANAX) 1 mg tabletIndicati [...] (11/07/2021): Added automatically from request for surgery [id number] Small intestinal bacterial overgrowth (SIBO) Assessment & Plan (10/18/2021 11:31 AM MANAGER FOREIGN): She could not afford the cost of rifaximin. Had been treated with Levaquin and Flagyl in the past. Will repeat hydrogen breath test. Assessment & Plan (08/30/2021 9:14 AM MANAGER FOREIGN): Patient was treated with levaquin and flagyl. She however reports no significant improvement. She still has significant abdominal pain and bloating. I will retreat her with rifaximin. She is willing to pay lopez for the medication if not covered by her insurer. Neutrophilia 07/19/2021 Assessment & Plan (08/30/2021 9:14 AM MANAGER FOREIGN): White count [address]12. She is concerned because her mother had blood d isorder . I offered to refer her to director of design for evaluation but she declined at this time. She promises to follow up with her primary care physician. Chronic abdominal pain 07/12/2021 Assessment & Plan (08/30/2021 9:16 AM MANAGER FOREIGN): Chronic abdominal pain. Severe. Has IBS. She [...] 11/06/2016 Assessment & Plan (10/18/2021 11:37 AM MANAGER FOREIGN): Severe. The patient claims she was unable [...] dose. Assessment & Plan (08/30/2021 9:19 AM MANAGER FOREIGN): Severe. Hydrogen breath test suggestive of SIBO. She did not respond to the face course of antibiotic. She was advised to continue probiotics. Rifaximin is prescribed. FODMAP diet recommend. Referred to monotype machinist. Plan of care discussed with patient and [...] 05/02/2022 Assessment & Plan (10/18/2021 11:33 AM MANAGER FOREIGN): Severe. She describes a different pain character, [...] medications 12/11/2011 09/02/2024 Allergic bronchitis 12/02/2009 07/19/20 21 Allergic rhinitis 12/02/2009 07/19/2021 Overview (03/06/2018): Overview: Small bowel obstruction (CMS/HCC) 07/19/2021 Overview (06/18/2018): Admit 05/24 Encounters Date Type Department Care Team Description 02/19/2025 10:12 AM CDT - 02/19/2025 11:59 PM CDT Hospital Encounter [facility] Radiology at [facility] [address] [place] [address] Bob Rivas MD Spinal stenosis of lumbar region at multiple levels; Lumbar myelopathy (HCC); Lumbar back pain with radiculopathy affecting left lower extremity; Numbness and tingling of lower extremity Discharge Disposition: Discharge to home or self care 02/04/2025 Telephone [facility] Orthopaedic Surgery [address] [facility] 2nd [address] [place] [address] Semaj Moreira CMA 02/01/2025 Telephone [facility] [address] [facility] 2[address] [place] [address] Lyssa Gallo NP 02/01/2025 Orders Only [facility] [address] [facility] 2[address] [place] [address] Lyssa Gallo NP Spinal stenosis of lumbar region at multiple levels (Primary Dx); Lumbar myelopathy (HCC); Lumbar back pain with radiculopathy affecting left lower extremity; Numbness and tingling of lower extremity 01/26/2025 Results Follow-Up [facility] [address] [facility] 2[address] [place] [address] Lyssa Gallo NP MRI Lumbar Spine WO Contrast 01/25/2025 Telephone [facility] Family Medicine at [address] [place] [address] Cade Monk MD 01/22/2025 1:34 PM CDT - 01/22/2025 11:59 PM CDT Hospital Encounter [facility] [address] [place] [address] Spinal stenosis of lumbar region at multiple levels; Lumbar myelopathy (HCC) Discharge Disposition: Discharge to home or self care 01/22/2025 8:45 AM CDT Ancillary Procedure [facility] [address] [facility] [address] [place] [address] Spinal stenosis of lumbar region at multiple levels; Lumbar myelopathy (HCC); Lumbar back pain with radiculopathy affecting left lower extremity 01/22/2025 8:45 AM CDT Procedure visit [facility] [address] [facility] [address] [place] [address] Bunny White MD Spinal stenosis of lumbar region at multiple levels (Primary Dx); Numbness and tingling of lower extremity 01/22/2025 Orders Only [facility] [address] [facility] 2[address] [place] [address] Lyssa Gallo NP Spinal stenosis of lumbar region at multiple levels; Lumbar myelopathy (HCC) 01/15/2025 Orders Only [facility] Family Medicine at [address] [place] [address] Cade Monk MD 12/24/2024 12:30 PM CDT Ancillary Procedure Radiology - [address] [place] [address] [address] [place] [address] Spinal stenosis of lumbar region at multiple levels; Lumbar myelopathy (HCC) 12/24/2024 11:00 AM CDT Office Visit [facility] [address] [place] [address] 2nd Floor [address] [place] [address] Lyssa Gallo NP Spinal stenosis of lumbar region at multiple levels (Primary Dx); Lumbar myelopathy (HCC); Lumbar back pain with radiculopathy affecting left lower extremity 12/24/2024 10:30 AM CDT Ancillary Procedure Radiology - [address] [place] [address] [address] [place] [address] Pain of upper extremity, unspecified laterality 12/24/2024 Telephone Radiology - [address] [place] [address] [address] [place] [address] Isabelle Napoles, 12/23/2024 Telephone [facility] Family Medicine at [address] [place] [address] Cade Monk MD Symptom Based Call 12/21/2024 Orders Only [facility] [address] [place] [address] 2nd Floor [address] [place] [address] Lyssa Gallo NP Pain of upper extremity, unspecified laterality (Primary Dx) 12/21/2024 Telephone [facility] Family Medicine at [address] [place] [address] Cade Monk MD Symptom Based Call; Medical Question/Miscellaneou s 12/15/2024 1:30 PM CDT Office Visit [facility] Orthopa[facility] [facility] [address] [place] [address] Yuniel Horton MD Pain in joint involving pelvic region and thigh, unspecified laterality (Primary Dx) 12/08/2024 1:45 PM MANAGER FOREIGN Office Visit [facility] Medicine at [address] [place] [address] Cade Monk MD Essential hypertension (Primary Dx); Chronic abdominal pain; Irritable bowel syndrome with both constipation and diarrhea; Chronic pain syndrome; OSBALDO (generalized anxiety disorder); Age-related physical debility; Gastroesophageal reflux disease without esophagitis; Postmenopausal status from Last 3 Months Immunizations Immunization Administration Dates Next Due H1N1 [...] 07/02/2019 ZOSTER LIVE 04/11/2011,10/06/1999 ZOSTER Recombinant 09/21/2018,07/22/2018 Surgical History Surgery Date Site/Laterality Comments SC OOPHORECTOMY PARTIAL/TOTAL UNI/BI Oophorectomy - Unilateral (Removal Of One Ovary) - age 41 (Added by TW Conv) SC TONSILLECTOMY PRIMARY/SECONDARY <AGE 13 Tonsillectomy - (Added by TW Conv) SC COLECTOMY PARTIAL W/ANASTOMOSIS Partial Colectomy - diverticulitis/kinks (Added by TW Conv) CYST REMOVAL 10/07/1967 - 10/06/1968 Cysts removed from left ovary CERVICAL DISCECTOMY OOPHORECTOMY Left COLONOSCOPY 11/21/2021 COLONOSCOPY 10/07/2016 - 10/06/2017 CATARACT EXTRACTION Medical History Medical History Date Comments Salpingitis or oophoritis Tubal ovarian abscess - (Added by TW Conv) Personal history of urinary calculi History of renal stone - incidental finding on ct 10/23 (Added by TW Conv) Other specified postprocedural states H/O colonoscopy - 01/20 dr. bridges. int roid. end to end colo-colonic anastomosis. repeat 5 yrs (Added by TW Conv) Personal history of other sp ecified conditions History of chest pain - stre ss echo 05/20 - nl lvf, mild mr/tr, dd (Added by TW Conv) Personal history of other di seases of the musculoskeletal system and connective tissue History of neck pain - emg/n cs 02/05 - lue nl (Added by TW Conv) Personal history of other di seases of the digestive system History of diverticulosis - (Added by TW Conv) Other fecal abnormalities Abnorm al stool test - blastocytosis in past, unclear if pathogenic (Added by TW Conv) History of colonic polyps Histor y of colonic polyps - (Added by TW Conv) Personal history of other sp ecified conditions History of paresthesia - 11/07 7 - felt related to flagyl. tingling to hands and feet (Added by TW Conv) Convulsions (HCC) Seizures - sanjay or on dilantin/phenobarbitol (Added by TW Conv) Encounter for screening for other viral diseases Need for hepatitis C screeni ng test - neg 04/22 (Added by TW Conv) Personal history of other di seases of the respiratory system History of influenza - (Adde d by TW Conv) Fall Fall, accidental - recurrent falls/weakness/gait abnl/dysuria 09/22-10/24. sent to er 10/24 - ct head neg. labs notable for klebsiella uti. d/c with keflex (Added by TW Conv) GERD (gastroesophageal reflux disease) Hypertension Hyperlipidemia Irritable bowel syndrome Depression Gastric reflux Hiatal hernia Kidney stone Spinal stenosis Mitral valve prolapse Anxiety COPD (chronic obstructive pu lmonary disease) (HCC) beginnings Duodenal ulcer Colitis UTI (urinary tract infection) hi story of many Migraines 1961 Fatigue Family History Medical History Relation Name Comments Arthritis Father Family history of arthritis - (Added by TW Conv) Prostate cancer Father Family histo ry of prostate cancer - (Added by TW Conv) Arthritis Mother Family history of arthritis - (Added by TW Conv) Dyslipidemia Mother Dyslipidemia - (Added by TW Conv) Heart attack Mother Family history of acute myocardial infarction - (Added by TW Conv) Hypertension Mother Family history of hypertension - (Added by TW Conv) Lung cancer Mother Family history of lung cancer - (Added by TW Conv) Migraines Mother Family history of migraine headaches - (Added by TW Conv) Pancreatitis Mother Family history of pancreatitis - (Added by TW Conv) Cancer Other Heart disease Other Kidney disease Other Mental illness Other Seizures Other Heart attack Sister 1 Heart disease Sister 2 nodules in thyroid Sister 3 Breast cancer Neg Hx Colon cancer Neg Hx Relation Name Status Comments Daughter Alive Father Mother Other Sister 1 Sister 2 Alive Sister 3 Alive Son Alive Social History Tobacco Use Types Packs/Day Years [...] often do you attend chur ch or voodoo services? More than 4 times per year 06/15/2022 Do you belong to any clubs o r organizations such as orthodox groups, unions, fraternal or athletic groups, or [...] place to sleep or slept in a retirement (including now)? No 06/15/2022 Personal Safety Answer Date Recorded Have you ever been in or are you currently in a harmful physical or emotional relationship or is someone making you feel afraid or unsafe? Denies 02/19/2025 Comments No Sex and Gender Information Value Date Recorded Sex Assigned at Not on file Legal Sex Female 3:59 AM MANAGER FOREIGN Gender Identity Not on file Sexual Orientation Not on file Obstetrics History Para Term AB IAB SAB Ectopic Multiple Livin g Live Births 3 2 2 Date Outcome GA Total Labor Labor/2nd/3rd Weight Sex Type Anes PTL Radha A1 A5 Name Clin Term Term Last Filed Vital Signs Vital Sign Reading Time Taken Comments Blood Pressure 149/72 02/19/2025 11:20 AM CDT Pulse 84 02/19/2025 11:20 AM CDT Temperature 37 C (98.6 F) 12/08/2024 2:21 PM MANAGER FOREIGN Respiratory Rate 0 02/19/2025 11:12 AM CDT Oxygen Saturation 99% 02/19/2025 11:20 AM CDT Inhaled Oxygen Concentration - - Weight 68 kg (150 lb) 02/19/2025 10:26 AM CDT Height 160 cm (5' 3) 02/19/2025 10:26 AM CDT Body Mass Index 26.57 02/19/2025 10:26 AM CDT Plan of Treatment Health Maintenance Due Date Last Done Comments Hepatitis B Screening 1963 Covid-19 Vaccine (4 - 2023-2 5 season) 2024 09/08/2021, 12/20/2020, 11/09/2020 Well Visit 65+ 05/27/2025 05/27/2024, 05/07, 04/12/2021, Additional history exists Depression Screening 06/02/2025 06/02/2024, 05/27/2024, 05/23/2023, Additional history exists Influenza Vaccine (Season Ended) 2025 10/10/2023, 06/29/2021, 06/02/2020, Additional history exists Osteoporosis Screening-Bone Density Scan 11/13/2025 11/13/2023, 02/19/2020, 02/19/2020, Additional history exists Fall Risk Assessment 02/19/2026 02/19/2025, 06/02/2024, 05/27/2024, Additional history exists DTaP/Tdap/Td Vaccine (2 - Td or Tdap) 07/02/2029 07/02/2019 Hepatitis C Screening Completed 03/28/2017 Zoster Vaccine Completed 09/21/2018, 07/07, 04/11/2011, Additional history exists Pneumococcal vaccine 65+ Completed 019, 04/26/2017, 05/31/2016, Additional history exists Breast Cancer Screening-Mammogram Discontinued 021, 10/07/2018 Colon Cancer Screening-CT Colonography Discontinued 11/21/2021, 01/23/2016 Colon Cancer Screening-Colonoscopy Discontinued 11/21/2021, 01/23/2016 Colon Cancer Screening-DNA Stool Discontinued 11/21/19, 01/23/2016 Colon Cancer Screening-FIT Discontinued 11/21/2021, Colon Cancer Screening-FOBT Discontinued 11/21/2021, 0 01/23/2016 Colon Cancer Screening-Sigmoidoscopy Discontinued 11/21/2021, 01/23/2016 Colorectal Cancer Screening Discontinued Medical Devices Implanted Type Area Public Health Specialist Device Identifier Shelf Expiration Date Model / Serial / Lot Allosource [id number] 17-19mm Freeze Dried Wedge Spine Graft Bone Tricortical Ilium - S0 - [id number] Implanted:Qty: 1 on 02/13/2021 by Ric Muhammad III, MD at [facility] Other - see comments N/A: Spine Cervical [employer]ource 02/24/2024 [id number] / 0 / [id number] Description:Tri-Cortical Ill ium Wedge [employer]ource [id number] 2.2cm Wedge Graft Bone Ilium - S0 - [id number] Implanted:Qty: 1 on 02/13/2021 by Ric Muhammad III, MD at [facility] Other - see comments N/A: Spine Cervical [employer]ource 02/28/2024 [id number] / 0 / [id number] Description:Tri-Cortical Hraika um Wedge [facility] [id number] Mambo 45mm 6 Hole Modular Edmondson 1 Step Lock Mechanism Spine - S0 - [id number] Implanted:Qty: 1 on 02/13/2021 by Ric Muhammad III, MD at [facility] Plate N/A: Spine Cervical [facility] 10/06/2065 1822-45 / 0 / 0 [facility] [id number] Mambo 3.5mm 13mm Spine Cervical Screw Bone Silver Modular Plate - S0 - [id number] Implanted:Qty: 4 on 02/13/2021 by Ric Muhammad III, MD at [facility] Screw N/A: Spine Cervical [facility] 10/06/2065 CS 1830-13 / 0 / 0 [facility] 1826-02 Mambo Clamp Spine Cervical Screw Bone Gold Modular Plate System - S0 - [id number] Implanted:Qty: 2 on 02/13/2021 by Ric Muhammad III, MD at [facility] Screw N/A: Spine Cervical [facility] 10/06/2065 1826-02 / 0 / 0 Procedures Procedure [...] CDT Pain of upper extremity, unspecified laterality SC ARTHROCENTESIS ASPIR&/INJ MAJOR JT/BURSA W/O US Routine 12/15/2024 1:30 PM CDT Pain in joint involving pelvic region and thigh, unspecified laterality DEXA AXIAL SKELETON BONE DENSITY 1 OR MORE SITES Schedule Routine, Read Routine (OP Routine) 11/13/2023 Post-menopausal COLONOSCOPY 11/21/2021 8:39 AM MANAGER FOREIGN SCREENING MAMMOGRAM BILATERAL W GEETHA Schedule Routine, [...] the physician's procedure / OR operative note. Lyssa Gallo NP IMG IR PROCEDURES Final R esult [facility] [...] Procedure Note Gisele Monroy MD PhD - 04/18/2025 EXAMINATION: Magnetic resonance imaging (MRI) of the [...] signed by: Gisele Monroy MD Lyssa Gallo DIRECTOR PHYSICAL IMG MRI PROCEDURES Final Result * POCUS LIMITED EXTREMITY (01/22/2025 8:44 AM CDT) Narrative [facility] - 01/22/2025 8:44 AM CDT This procedure was performed and interpreted by the provider. Please refer to the provider's procedure/OR operative note for results. Bunny White MD POCUS ORDERABLES Final Result [facility] * EMG/NCV WITH ULTRASOUND -Please select the performing region: [facility] (All Locations); Procedure performed at: [facility] Physiatr (01/22/2025 8:29 AM CDT) Anatomical Region Laterality Modality Other Lyssa Gallo DIRECTOR PHYSICAL NEUROLOGY ORDERABLES Anika l Result * X-ray [...] by: Noel Black M.D. us Lyssa Gallo DIRECTOR PHYSICAL IMG XR PROCEDURES Final R esult * [...] changes. Electronically signed by: Bob Mays D.O. Lyssa Gallo DIRECTOR PHYSICAL IMG XR PROCEDURES Final R esult * SC ARTHROCENTESIS ASPIR&/INJ MAJOR JT/BURSA W/O US (12/15/2024 1:30 PM CDT) Narrative Yuniel Horton MD - 12/15/2024 1:30 PM CDT Yuniel Horton MD 12/15/2024 4:52 PM Large Joint Injection: bilateral knee Performed by: Yuniel Horton MD Authorized by: Yuniel Horton MD [...] patient expressed understanding and agreed to proceed. Yuniel Horton MD IN CLINIC/BEDSIDE OR DERABLES Final Result * Dexa Axial Skeleton Bone Density 1 Or 2 Site (11/13/2023) Anatomical Region Laterality Modality Body N/A Radiographic Le ging 11/13/2023 Cade Monk MD IMG DXA PROCEDURES Final Resu lt * COLONOSCOPY (11/21/2021 8:39 AM MANAGER FOREIGN) Anatomical Region Laterality Modality Other Narrative Procedure Note Mayte Henson MD - 11/21/2021 8:39 AM CST [facility] Patient Name: Cherise Fields Procedure Date: 11/21/2021 8:39 AM Date of : 1945 Admit Type: Outpatient Age: 76 Gender: Female Note Status: Finalized Attending MD: Mayte Henson M.D. Procedure Date: 11/21/2021 Procedure: Colonoscopy Indications: Generalized abdominal pain, Weight loss Providers: Mayte Henson M.D., Kiah Brooke CRNA (Anesthesia Staff), Eloy Lo RN, Mattie Luna RN, Rolando Moreira, Latin American Studies Professor Referring MD: Cade Monk M.D. Medicines: Monitored [...] by the physician, the nurse and the agricultural equipment mechanic in the procedure room. Mental Status Examination: [...] not recommended. Procedure Code(s): --- Professional --- 02137, Colonoscopy, flexible; with biopsy, singleor multiple Diagnosis Code(s): --- Professional --- K63.5, Polyp of colon R10.84, Generalized abdominal pain R63.4, Abnormal weight loss CPT copyright 2019 [employer]. All rights reserved. The codes documented in this report are preliminary and upon lottery manager reviewmay be revised to meet current compliance [...] age 40, based on guidelines of the [employer] (ACR Practice Parameter for the Performance of Screening and Diagnostic Mammography) and [employer]. For women [...] PM CDT) Hep C Ab Nonreactive Nonreactive [facility] Comment: Interpretive Data Positive and greyzone results should be confirmed by a molecular method. If positive or greyzone, a second separately collected sample should be submitted for Hepatitis C Virus RNA. Detection and Quantitation by Real-Time Reverse Scrum Project Manager-PCR.Current Interpretive data was last revised on 2017. Blood specimen (specimen) 03/28/2017 12:46 PM CDT 03/28/2017 4:37 PM CDT Chon Schuler MD LAB MICROBIOLOGY - GENER AL ORDERABLES Edited Result - Final [facility] Department [place] [address] from Last 3 Months or Most Recently Relevant to Health Maintenance Insurance MEDICARE AET SENIOR SUPPLEMENT MEDICARE AET SENIOR SUPPLEMENT MEDICARE AETNA SENIOR SUPPLEMENT MEDICARE Advance Directives For more information, please contact: [phone] Documents on File Type Date Recorded Patient Turn Down Worker Expl anation ADVANCE DIRECTIVE 02/13/2021 2:30 PM Power of Preconstruction Manager-Medical ADVANCE DIRECTIVE 02/10/2021 5:44 PM Living Will [...] 6:14 PM 05/28/2018 2:36 PM Care Teams Substation Mechanic Relationship Specialty Start Date End Date Cade Monk MD [address] [facility] [place] [address] PCP - General Family Medicine 08/04/21 Montserrat Shah NP Nurse Practitioner Surgery 03/18/18 Jose A Barry MD Referring Physician Neurosurgery 03/18/18 Omer Capellan MD PhD [address] [address] Referring Physician Neurology 03/18/18 Meg Correa MD [address] [facility] [address] [facility] [place] [address] Referring Physician Urology 03/18/18 Megan Hernandez DO [address] [facility] [place] [address] Consulting Physician Obstetrics and Gynecology 03/19/18 Ric Muhammad III, MD [address] [facility] [place] [address] Referring Physician Neurosurgery 01/21/19 Rosendo Jarrett MD [address] [place] [address] Consulting Physician Gastroenterology 08/06/20 Raza Houston MD [address] [facility] [address] [place] [address] Consulting Physician Neurology 06/16/22 Shaan Varela LPN [address] [place] [address] [facility] [address] [place] [address] ACO Care Aircraft Mechanic 07/09/22
--- OUTSIDE RECORDS SUMMARY | 2025-03-02 10:19 | XMS_ITS | Encounter Summary ---
Author Organization [facility] Healthcare Address [address] [place] [address] Care Team Providers Care Supervisor Small Appliance Assembly Name Role Phone Fred Shahkayla Lizama NP Unavailable [phone] Jose A Barry MD [facility]available [facility] PhD Unavailable CorreaMeg barahona MD Unavailable [phone] Megan Hernandez DO Unavailable [phone] Sabina BARNEY MD, Ric Wilks Unavailable [phone] Rosendo Jarrett MD Unavailable Cade Monk MD Primary Care Provider Raza Houston MD Unavailable [phone] Shaan Varela LPN Unavailable Encounter Details Date Type Department Care Team (Late st Contact Info) Description 12/24/2024 Telephone Radiology - [address] [place] [address] [address] [place] [address] Isabelle Napoles RT Social History Tobacco Use Types Packs/Day Years [...] often do you attend chur ch or latter day services? More than 4 times per year [...] place to sleep or slept in a penitentiary (including now)? No 06/15/2022 Personal Safety Answer Date Recorded Have you ever been in or are you currently in a harmful physical or emotional relationship or is someone making you feel afraid or unsafe? Denies 06/01/2024 Comments No Sex and Gender Information Value Date Recorded Sex Assigned at Not on file Legal Sex Female 3:59 AM ELECTRIC TRUCKER Gender Identity Not on file Sexual Orientation Not on file documented as of this encounter Plan of Treatment Not on file documented as of this encounter Visit Diagnoses Not on filedocumented in this encounter Care Teams Supervisor Small Appliance Assembly Relationship Specialty Start Date End Date Cade Monk MD [address] [place] [address] PCP - General Family Medicine 08/04/21 Montserrat Shah NP Nurse Practitioner Surgery 03/18/18 Jose A Barry MD Referring Physician Neurosurgery 03/18/18 [facility] holly MD PhD [address] [place] [address] Referring Physician Neurology 03/18/18 Meg Correa MD [address] [place] [address] Referring Physician Urology 03/18/18 Megan Hernandez DO [address] [place] [address] Consulting Physician Obstetrics and Gynecology 03/19/18 Ric Muhammad III, MD [address] [place] [address] Referring Physician Neurosurgery 01/21/19 Rosendo Jarrett MD [address] [facility] [place] [address] Consulting Physician Gastroenterology 08/06/20 Raza Houstno MD [address] [facility] [address] [place] [address] Consulting Physician Neurology 06/16/22 Shaan Varela LPN [address] [place] [address] [address] [place] [address] ACO Care Registered Nurse Ambulatory 07/09/22 documented as of this encounter
--- OUTSIDE RECORDS SUMMARY | 2025-03-02 10:19 | XMS_ITS | Encounter Summary ---
Author Organization [facility] Address [address] [place] [address] Care Team Providers Care Head Of Maintenance Name Role Phone Theresa Hernadez MD Primary Care Provider [phone] Encounter Details Date Type Department Care Team (Latest Contact Info) Description 01/31/2006 Outpatient Historical HIS [facility] Theresa Ann MD [facility] [address] Acute Bronchitis (Primary Dx) Social History Tobacco Use Types Packs/Day Years Used Date Smoking Tobacco: Never Assessed Comments Unknown Sex and Gender Information Value Date Recorded Sex Assigned at Not on file Legal Sex Female 4:26 AM IRON MINER Gender Identity Not on file Sexual Orientation Not on file documented as of this encounter Plan of Treatment Not on file documented as of this encounter Visit Diagnoses Diagnosis Acute bronchitis- Primary documented in this encounter Care Teams Head Of Maintenance Relationship Specialty Start Date End Date Theresa Hernadez MD [address] [place] [address] PCP - General 01/31/06 05/05/14 documented as of this encounter
--- OUTSIDE RECORDS SUMMARY | 2025-03-02 10:19 | XMS_ITS | Encounter Summary ---
Author Organization [facility] Address [address] [place] [address] Phone Care Team Providers Care Registered Medical Transcriptionist Name Role Phone Montserrat Shah NP Unavailable Jose A Barry MD [facility]available [facility] PhD Unavailable Meg Correa MD Unavailable Megan Hernandez DO Unavailable [phone] Sabina BARNEY MD, Ric Wilks Unavailable Rosendo Jarrett MD Unavailable Cade Monk MD Primary Care Provider Raza Houston MD Unavailable Shaan Varela LPN Unavailable [phone] Encounter Details Date Type Department Care Team (Late st Contact Info) Description 02/01/2025 Telephone [facility] Orthopaedic Surgery [address] [facility] [address] [place] [address] Lyssa Gallo NP [address] [place] [address] Social History Tobacco Use Types Packs/Day Years [...] often do you attend chur ch or worship services? More than 4 times per year 06/15/2022 Do you belong to any clubs o r organizations such as gnosticism groups, unions, fraternal or athletic groups, or [...] place to sleep or slept in a prison (including now)? No 06/15/2022 Personal Safety Answer Date Recorded Have you ever been in or are you currently in a harmful physical or emotional relationship or is someone making you feel afraid or unsafe? 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 Yes If conservative treatment was received at an External Facility, obtain notes before scheduling Is this a repeat injection in the same area? No- Move to the allergy question. Does patient report a consistent minimum of 50% improvement in pain for at least 6 months, or a 50%consistent improvement in performing previously painful movements/activities of daily living (ADLs), compared to baseline measurements using the same scale? No Repeat Steroid injection in the same site MUST BE SCHEDULED THREE MONTHS from last steroid injection Allergic to x-ray contrast dye or local anesthetics: No Not Applicable Will you receive any vaccinations including the COVID booster 2 weeks prior to or 2 weeks after your scheduled procedure: No Do you have a pacemaker or defibrillator? No Do you have cardiology clearance to obtain RFA? 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 No, notify ordering provider of need for disability scale for approval of Medicare patients receiving Facet injections 06/23/2024 12/15/2024 12/24/2024 01/22/2025 PROMIS Mobility V1.2 31.9 28.2 Pain Interference 71.6 70.5 71.6 71.6 Physical Function V2.0 26.9 26.9 26.9 26.9 Anxiety V1.0 70.1 76.2 76.2 76.2 Depression 62.2 69.5 78.1 78.1 Disability scale must be in the chart for ALL Medicare Facet injection before they will be approved. Use .PROMISALL to pull in disability scale into the chart for [facility] patients. Patient encouraged to call with issues/concerns. documented in this encounter Plan of Treatment Not on file documented as of this encounter Visit Diagnoses Not on filedocumented in this encounter Care Teams Registered Medical Transcriptionist Relationship Specialty Start Date End Date Cade Monk MD [address] [place] [address] PCP - General Family Medicine 08/04/21 Montserrat Shah NP Nurse Practitioner Surgery 03/18/18 Jose A Barry MD Referring Physician Neurosurgery 03/18/18 Omer Capellan MD PhD [address] [place], [place] [id number] Referring Physician Neurology 03/18/18 Meg Correa MD [address] [place], [place] [id number] Referring Physician Urology 03/18/18 Megan Hernandez DO [address] [place] [address] Consulting Physician Obstetrics and Gynecology 03/19/18 Ric Muhammad III, MD [address] [place] [address] Referring Physician Neurosurgery 01/21/19 Rosendo Jarrett MD [address] [place] [address] Consulting Physician Gastroenterology 08/06/20 Raza Houston MD [address] [facility] [address] [place] [address] Consulting Physician Neurology 06/16/22 Shaan Varela LPN [address] [place] [address] [address] [place] [address] ACO Care Jack Spinner 07/09/22 documented as of this encounter
--- NOTE | 2025-03-02 11:06 | ED_ITS ---
HPI - General Adult General Chief complaint: Psychiatric Symptoms <Ro Garces PA-C - Last Filed: 03/04/25 17:16> Stated complaint: dizzy post suicide attempt <Ro Garces PA-C - Last Filed: 03/04/25 17:16> Time Seen by Provider: 03/02/25 10:09 <AMADOR Qiu Last Filed: 03/04/25 17:16> Source: patient <Ro Garces PA-C - Last Filed: 03/04/25 17:16> Mode of arrival: EMS <AMADOR Qiu Last Filed: 03/04/25 17:16> Limitations: no limitations <Ro Garces PA-C - Last Filed: 03/04/25 17:16> History of Present Illness HPI narrative: Patient is a 71-year-old female who presents the ED via EMS with report of suicidal ideation. Patient reports she had an argument with her son last night and he was reportedly yelling at her, then left very upset at her. Patient has been dealing with worsening depression and states she got to a point where she no longer wanted to be present in this world. States it was not worth it. Feel she is a burden to her children. States she does not have a great relationship with her children. She then attempted suicide via overdose. She took 6 tramadol 50mg, 6 hydrocodone 5/325, and 10 xanax 2mg around 9:00 p.m. last night in attempt to kill herself. Patient reports she then went to bed and fell out of bed this morning, which is what prompted her to contact EMS. She denies injury from the fall today. She does mention that she fell in her bathtub 3 days ago and did hit her head at that time. Denied LOC. Complains of headache. She does still feel suicidal and depression. Denies homicidal ideation. Patient denies any previous suicide attempts. Patient did write a several page suicide note to her children. <AMADOR Qiu Last Filed: 03/04/25 17:16> Related Data Home medications: Home Medications ?Medication ?Instructions ?Recorded ?Confirmed ?Last Taken ?Type lisinopril 10 mg tablet 10 mg PO DAILY 06/15/20 03/03/25 Unknown History Adult One Daily Multivitamin 1 tablet PO DAILY 11/17/21 03/03/25 Unknown History alprazolam 2 mg tablet 2 mg PO HS PRN Anxiety 11/17/21 03/03/25 Unknown History duloxetine 60 mg capsule,delayed 60 mg PO BID 11/17/21 03/03/25 Unknown History release multivit with minerals-iron 18 1 tablet PO DAILY 11/17/21 11/17/21 Unknown History mg-folic ac 400 mcg-vit K 25 mcg tablet (Adults Multivitamin) polyethylene glycol 3350 17 gram 17 g PO DAILY 11/17/21 03/03/25 Unknown History oral powder packet (Miralax) hyoscyamine sulfate 0.25 mg 0.25 mg PO QID PRN dyspepsia 09/06/23 03/03/25 Unknown History disintegrating tablet naltrexone 4.5 mg capsule 0.4 mg PO 09/06/23 Unknown History tramadol 50 mg tablet 50 mg PO Q6H PRN pain 09/06/23 03/03/25 Unknown History carica papaya 1 tablet PO TID 10/17/23 03/03/25 Unknown History cyclosporine 0.05 % eye drops in a 1 drp EACH EYE Q12H 10/17/23 03/03/25 Unknown History dropperette (Restasis) erythromycin 250 mg tablet,delayed 500 mg PO Q6H 10/17/23 Unknown History release estradiol 0.01% (0.1 mg/gram) 2 g vaginal 2XW 10/17/23 03/03/25 Unknown History vaginal cream (Estrace) ondansetron 4 mg disintegrating 4 mg PO Q8H 10/17/23 03/03/25 Unknown History tablet pantoprazole 40 mg tablet,delayed 40 mg PO QAM 10/17/23 03/03/25 Unknown History release polyvinyl alcohol 0.6% eye drops 2 drp ophthalmic (eye) 10/17/23 Unknown History rifaximin 550 mg tablet (Xifaxan) 550 mg PO BID 10/17/23 Unknown History <Ro Garces PA-C - Last Filed: 03/04/25 17:16> Allergies/adverse reactions: Allergies Allergy/AdvReac Type Severity Reaction Status Date / Time doxycycline Allergy Unknown Hives Verified 03/03/25 02:54 lubiprostone Allergy Unknown Mental Verified 03/03/25 02:54 status change morphine Allergy Unknown Hallucinati Verified 03/03/25 02:54 ng pregabalin (From Lyrica) Allergy Unknown Zones out Verified 03/03/25 02:54 Sulfa (Sulfonamide Allergy Unknown Swelling Verified 03/03/25 02:54 Antibiotics) varenicline (From Chantix) Allergy Unknown Nausea Verified 03/03/25 02:54 linaclotide (From Linzess) Allergy mental Verified 03/03/25 02:54 status change sulfamethoxazole (From Allergy Swelling Verified 03/03/25 02:54 Septra) of Lip/Tongue/Throat trimethoprim (From Septra) Allergy Swelling Verified 03/03/25 02:54 of Lip/Tongue/Throat <Ro Garces PA-C - Last Filed: 03/04/25 17:16> Review of Systems 2 Review of Systems: All systems reviewed & are unremarkable except as noted in HPI. <Ro Garces PA-C - Last Filed: 03/04/25 17:16> All systems reviewed & are unremarkable except as noted in HPI and below < Ro Garces PA-C - Last Filed: 03/04/25 17:16> [facility] Past Medical History Medical History: Medical History History of bruising easily History of stress test Spinal stenosis of lumbar region Hiatal hernia with GERD without esophagitis Dyslipidemia Hyperlipidemia Right kidney stone Tobacco use disorder, continuous COPD (chronic obstructive pulmonary disease) Essential hypertension Small intestinal bacterial overgrowth (SIBO) Irritable bowel syndrome <AMADOR Qiu Last Filed: 03/04/25 17:16> Surgical History Surgical History: Surgical History History of fusion of cervical spine History of appendectomy History of tonsillectomy Status post cataract extraction of both eyes with insertion of intraocular lens History of colon resection Due to ?kinking? of her colon. 10 inches removed. History of left oophorectomy <Ro Garcse PA-C - Last Filed: 03/04/25 17:16> Family History Family History: Family History Mother , At 84 years of age Acute myocardial infarction Hypertension <Ro Garces PA-C - Last Filed: 03/04/25 17:16> Social History Social History: Social History Social History: She has been since 2015. She has 2 adult daughters. She started smoking at the age of 20. She has smoked between 0.5 and 0.25 packs cigarettes per day since then. She denies any alcohol use. She denies any illicit substance use. Smoking status: Current every day smoker Tobacco type: cigarettes Alcohol intake: never Drinks per week: 0 Substance use: never Substance use type: prescription drug Do You Feel Safe in your Home?: Yes Lack of Transportation: No Lack of Food: Never True Current Housing: I Have Housing Concerned About Future Housing: No Difficulty Paying Gas/Electric Bills: No Difficulty Paying for Meds: No Currently Unemployed: No Education: Trade/Vocational Certificate Difficulty w/ Childcare or Family Care: No Living arrangements: alone Occupation/Education: retired Gender identity (if verbalized by the patient): Female Spiritual care concerns: No Agree to blood products: Yes <Ro Garces PA-C - Last Filed: 03/04/25 17:16> Exam 2 Narrative: GENERAL: Elderly but well appearing, well-nourished, non-toxic, in no acute distress. HEAD: Normocephalic, atraumatic. EYES: PERRL/EOMI, conjunctiva clear RESPIRATORY: Airway patent, respirations nonlabored. Clear to auscultation bilaterally, no rales, rhonchi, wheezing. CARDIOVASCULAR: Regular rate and rhythm without murmurs, rubs, or gallops. ABDOMINAL: Soft, nontender, nondistended. Normoactive BS. MUSCULOSKELETAL: Moves all extremities. No gross deformities. SKIN: Warm, dry, normal color. NEURO: A&O X3. Speech clear. Cranial nerves II-XII grossly intact. Steady gait. No ataxic movements. No focal deficits. PSYCHIATRIC: Depressed mood, flat affect, tearful. Normal interaction. <Ro Garces PA-C - Last Filed: 03/04/25 17:16> Course GRAIN II FARMWORKER/PA Physician Supervision This visit was performed by both a physician and an APC. I performed all aspects of the MDM as documented. <Srikanth Jennings MD - Last Filed: 03/05/25 06:46> Vital Signs Vital signs: Vital Signs Temperature 36.6 C 03/02/25 10:08 Pulse Rate 75 03/02/25 10:08 Respiratory Rate 18 03/02/25 10:08 Blood Pressure 165/92 H 03/02/25 10:08 Pulse Oximetry 98 03/02/25 10:08 Temperature 36.6 C 03/03/25 03:48 Pulse Rate 74 03/03/25 03:48 Respiratory Rate 16 03/03/25 03:48 Blood Pressure 182/90 H 03/03/25 03:48 Pulse Oximetry 98 03/03/25 03:48 <Ro Garces PA-C - Last Filed: 03/04/25 17:16> Vital Signs Temperature 36.6 C 03/02/25 10:08 Pulse Rate 75 03/02/25 10:08 Respiratory Rate 18 03/02/25 10:08 Blood Pressure 165/92 H 03/02/25 10:08 Pulse Oximetry 98 03/02/25 10:08 Temperature 36.6 C 03/03/25 03:48 Pulse Rate 74 03/03/25 03:48 Respiratory Rate 16 03/03/25 03:48 Blood Pressure 182/90 H 03/03/25 03:48 Pulse Oximetry 98 03/03/25 03:48 <Margarita Romero APRN - Last Filed: 03/03/25 03:28> Vital Signs Temperature 36.6 C 03/02/25 10:08 Pulse Rate 75 03/02/25 10:08 Respiratory Rate 18 03/02/25 10:08 Blood Pressure 165/92 H 03/02/25 10:08 Pulse Oximetry 98 03/02/25 10:08 Temperature 36.6 C 03/03/25 03:48 Pulse Rate 74 03/03/25 03:48 Respiratory Rate 16 03/03/25 03:48 Blood Pressure 182/90 H 03/03/25 03:48 Pulse Oximetry 98 03/03/25 03:48 <Srikanth Jennings MD - Last Filed: 03/05/25 06:46> Medical Decision Making MDM Narrative Medical decision making narrative: Patient presented to ED status post suicide attempt last night via overdose. Patient does admit to still feeling suicidal currently. Vital signs are stable upon arrival. Patient tearful, otherwise in no acute distress. Neurologically intact. She does admit to head injury 3 days ago. ED psych workup was initiated. Poison control was contacted and advised to monitor patient for 3 hours for DISPLAY DIRECTOR depression. Patient is otherwise passed her peak time frame of medications. CT brain and cervical spine were obtained and without traumatic findings. Cervical spine CT does show incidental pulmonary nodule. Will make patient aware of this. TSH is very low. Free T4 and T3 are within normal range. Patient updated on this. Will need close outpatient follow-up. UA with potential infection. Will treat. Sent for culture. Started on Keflex in the ED. Rx written. Patient medically cleared to undergo psychiatric evaluation by crisis. Crisis determined patient to meet criteria for inpatient psychiatric placement. I do agree with this plan. Patient is currently under voluntary status. Awaiting bed placement. Care signed out to Margarita Romero GRAIN II FARMWORKER at shift change pending bed placement. <Ro Garces PA-C - Last Filed: 03/04/25 17:16> Patient presented to ED status post suicide attempt last night via overdose. Patient does admit to still feeling suicidal currently. Vital signs are stable upon arrival. Patient tearful, otherwise in no acute distress. Neurologically intact. She does admit to head injury 3 days ago. ED psych workup was initiated. Poison control was contacted and advised to monitor patient for 3 hours for DISPLAY DIRECTOR depression. Patient is otherwise passed her peak time frame of medications. CT brain and cervical spine were obtained and without traumatic findings. Cervical spine CT does show incidental pulmonary nodule. Will make patient aware of this. TSH is very low. Free T4 and T3 are within normal range. Patient updated on this. Will need close outpatient follow-up. UA with potential infection. Will treat. Sent for culture. Started on Keflex in the ED. Rx written. Patient medically cleared to undergo psychiatric evaluation by crisis. Crisis determined patient to meet criteria for inpatient psychiatric placement. I do agree with this plan. Patient is currently under voluntary status. Awaiting bed placement. Care signed out to Margarita Romero GRAIN II FARMWORKER at shift change pending bed placement. 1914- I assumed care of pt. An extensive amount of time was spent explaining process of admission to pt and her daughter. At this time, pt is agreeable to being admitted to an outside hospital for psychiatric care. Pt and her daughter declined beds offered at [facility] 2244- Pt walked out to the nurse's station and reports I want to go home. It was explained to pt she is not allowed to leave because she attempted to take her own life earlier in the day. Pt was angry and reports I live in [place], I have my rights. The process of admission was explained to pt again. She returned to her room. 2400- Pt has been resting on her hospital bed with eyes open, but not interacting with any staff. Her daughter left for the evening. 199- Pt has been accepted for placement at [facility] in [place]. She verbalizes understanding and is in agreement with plan for transfer. Vital signs stable at time of transport. <Margarita Romero, CARO - Last Filed: 03/03/25 03:28> Differential Diagnosis Differential Diagnosis: Anxiety, depression, suicidal ideation, intentional overdose <Margarita Romero APRN - Last Filed: 03/03/25 03:28> Medical Records Medical records reviewed: Yes I reviewed the external patient's medical records. <Ro Garces PA-C - Last Filed: 03/04/25 17:16> Vital Signs Vital Signs: Vital Signs Temperature 36.6 C 03/02/25 10:08 Pulse Rate 75 03/02/25 10:08 Respiratory Rate 18 03/02/25 10:08 Blood Pressure 165/92 H 03/02/25 10:08 Pulse Oximetry 98 03/02/25 10:08 Temperature 36.6 C 03/03/25 03:48 Pulse Rate 74 03/03/25 03:48 Respiratory Rate 16 03/03/25 03:48 Blood Pressure 182/90 H 03/03/25 03:48 Pulse Oximetry 98 03/03/25 03:48 <Ro Garces PA-C - Last Filed: 03/04/25 17:16> Vital Signs Temperature 36.6 C 03/02/25 10:08 Pulse Rate 75 03/02/25 10:08 Respiratory Rate 18 03/02/25 10:08 Blood Pressure 165/92 H 03/02/25 10:08 Pulse Oximetry 98 03/02/25 10:08 Temperature 36.6 C 03/03/25 03:48 Pulse Rate 74 03/03/25 03:48 Respiratory Rate 16 03/03/25 03:48 Blood Pressure 182/90 H 03/03/25 03:48 Pulse Oximetry 98 03/03/25 03:48 <Margarita Romero, PHOTOSTAT OPERATOR HELPER - Last Filed: 03/03/25 03:28> Vital Signs Temperature 36.6 C 03/02/25 10:08 Pulse Rate 75 03/02/25 10:08 Respiratory Rate 18 03/02/25 10:08 Blood Pressure 165/92 H 03/02/25 10:08 Pulse Oximetry 98 03/02/25 10:08 Temperature 36.6 C 03/03/25 03:48 Pulse Rate 74 03/03/25 03:48 Respiratory Rate 16 03/03/25 03:48 Blood Pressure 182/90 H 03/03/25 03:48 Pulse Oximetry 98 03/03/25 03:48 <Srikanth Jennings MD - Last Filed: 03/05/25 06:46> Lab Data Lab results reviewed: Yes I reviewed the patient's lab results. <Ro Garces PA-C - Last Filed: 03/04/25 17:16> Result diagrams: 03/02/25 11:28 03/02/25 11:28 <Ro Garces PA-C - Last Filed: 03/04/25 17:16> Labs: Lab Results 03/02/25 03/02/25 03/02/25 Range/Units 11:27 11:28 12:55 WBC 10.3 H (4.5-10.0) K/mm3 RBC 4.63 (4.2-5.4) M/mm3 Hgb 13.9 (12.0-15.0) g/dL Hct 44.1 (37.0-47.0) % MCV 95.2 (80-100) fl MCH 30.0 (26-34) pg MCHC 31.5 L (32-36) g/dl RDW 15.0 H (11.5-14.5) % Plt Count 380 H (150-375) k/mm3 MPV 9.4 (7.4-10.4) fl Immature Gran % (Auto) 0.4 (0-0.5) % Neut % (Auto) 69.8 (45.5-73.1) % Lymph % (Auto) 19.7 (18.3-44.2) % [place] % (Auto) 8.3 (2.6-8.5) % Eos % (Auto) 1.0 (0-4.4) % Baso % (Auto) 0.8 (0.2-1.2) % Lymph # (Auto) 2.04 (0.9-3.2) K/mm3 [place] # (Auto) 0.9 H (0.1-0.6) K/mm3 Eos # (Auto) 0.1 (0-0.3) K/mm3 Baso # (Auto) 0.1 (0.0-0.1) K/mm3 Abs Immat Gran (auto) 0.04 H (0.00-0.031) K/mm3 Absolute Neuts (auto) 7.2 H (1.3-6.7) K/mm3 Absolute Nucleated RBC 0.000 (0.0-0.012) K/mm3 Nucleated RBC % 0.0 (0.0-0.2) % Sodium 140 (137-145) mmol/L Potassium 3.8 (3.4-5.0) mmol/L Chloride 105 (98-107) mmol/L Carbon Dioxide 32 H (22-30) mmol/L Anion Gap 3 L (4-12) mmol/L BUN 24 H (7-17) mg/dL Creatinine 0.57 L (0.7-1.0) mg/dL Estim Creat Clear Calc 59 ml/min Estimated GFR > 60 (59 - ) Glucose 89 (65-110) mg/dL Calcium 8.8 (8.4-10.2) mg/dL Magnesium 2.4 H (1.6-2.3) mg/dL Total Bilirubin 0.5 (0.2-1.3) mg/dL AST 29 (14-36) U/L ALT 29 (6-35) U/L Alkaline Phosphatase 53 (38-126) U/L Total Protein 7.0 (6.3-8.2) g/dL Albumin 3.9 (3.5-5.1) g/dL TSH < 0.015 L (0.465-4.680) uIU/mL Free T4 1.44 (0.78-2.19) ng/dL Total T3 1.27 (0.82-1.58) NG/ML Urine Color Yellow (Yellow) Urine Appearance Turbid H (Clear) Urine pH 8.0 (5.0-9.0) Ur Specific [place] 1.022 (1.001-1.035) Urine Protein 1+ H (Negative) mg/dL Urine Glucose (UA) Negative (Negative) mg/dL Urine Ketones Trace H (Negative) mg/dL Ur Blood (Man) 2+ H (Negative) Urine Nitrate Negative (Negative) Urine Bilirubin Negative (Negative) Urine Urobilinogen 1.0 (<2.0) mg/dL Add Ur Microanalysis Reviewed Leukocyte Esterase Rfl 3+ H (Negative) MARCIA/UL Urine RBC 11-20 H (0-2) /hpf Urine WBC 21-50 H (0-3) /hpf Ur Squamous Epith Cells Many H (Few) /hpf Urine Bacteria None seen /hpf Urine Casts 6-10 Urine Mucus Present /lpf Salicylates < 1.0 L (2-20) mg/dL Urine Opiates Screen Negative (Negative) Urine Methadone Screen Negative (Negative) Acetaminophen < 10 L (10-30) ug/mL Ur Barbiturates Screen Negative (Negative) Ur Phencyclidine Scrn Negative (Negative) Ur Amphetamine Screen Negative (Negative) U Benzodiazepines Scrn Positive A (Negative) Urine Cocaine Screen Negative (Negative) U Cannabinoids Screen Negative (Negative) Ethyl Alcohol < 10 (<10) mg/dL Influenza A (RT-PCR) Negative (Negative) Influenza B (RT-PCR) Negative (Negative) RSV (RT-PCR) Negative (Negative) SARS-CoV-2 RNA (RT-PCR) Negative (Negative) <Ro Garces PA-C - Last Filed: 03/04/25 17:16> Lab Results 03/02/25 03/02/25 03/02/25 Range/Units 11:27 11:28 12:55 WBC 10.3 H (4.5-10.0) K/mm3 RBC 4.63 (4.2-5.4) M/mm3 Hgb 13.9 (12.0-15.0) g/dL Hct 44.1 (37.0-47.0) % MCV 95.2 (80-100) fl MCH 30.0 (26-34) pg MCHC 31.5 L (32-36) g/dl RDW 15.0 H (11.5-14.5) % Plt Count 380 H (150-375) k/mm3 MPV 9.4 (7.4-10.4) fl Immature Gran % (Auto) 0.4 (0-0.5) % Neut % (Auto) 69.8 (45.5-73.1) % Lymph % (Auto) 19.7 (18.3-44.2) % [place] % (Auto) 8.3 (2.6-8.5) % Eos % (Auto) 1.0 (0-4.4) % Baso % (Auto) 0.8 (0.2-1.2) % Lymph # (Auto) 2.04 (0.9-3.2) K/mm3 [place] # (Auto) 0.9 H (0.1-0.6) K/mm3 Eos # (Auto) 0.1 (0-0.3) K/mm3 Baso # (Auto) 0.1 (0.0-0.1) K/mm3 Abs Immat Gran (auto) 0.04 H (0.00-0.031) K/mm3 Absolute Neuts (auto) 7.2 H (1.3-6.7) K/mm3 Absolute Nucleated RBC 0.000 (0.0-0.012) K/mm3 Nucleated RBC % 0.0 (0.0-0.2) % Sodium 140 (137-145) mmol/L Potassium 3.8 (3.4-5.0) mmol/L Chloride 105 (98-107) mmol/L Carbon Dioxide 32 H (22-30) mmol/L Anion Gap 3 L (4-12) mmol/L BUN 24 H (7-17) mg/dL Creatinine 0.57 L (0.7-1.0) mg/dL Estim Creat Clear Calc 59 ml/min Estimated GFR > 60 (59 - ) Glucose 89 (65-110) mg/dL Calcium 8.8 (8.4-10.2) mg/dL Magnesium 2.4 H (1.6-2.3) mg/dL Total Bilirubin 0.5 (0.2-1.3) mg/dL AST 29 (14-36) U/L ALT 29 (6-35) U/L Alkaline Phosphatase 53 (38-126) U/L Total Protein 7.0 (6.3-8.2) g/dL Albumin 3.9 (3.5-5.1) g/dL TSH < 0.015 L (0.465-4.680) uIU/mL Free T4 1.44 (0.78-2.19) ng/dL Total T3 1.27 (0.82-1.58) NG/ML Urine Color Yellow (Yellow) Urine Appearance Turbid H (Clear) Urine pH 8.0 (5.0-9.0) Ur Specific [place] 1.022 (1.001-1.035) Urine Protein 1+ H (Negative) mg/dL Urine Glucose (UA) Negative (Negative) mg/dL Urine Ketones Trace H (Negative) mg/dL Ur Blood (Man) 2+ H (Negative) Urine Nitrate Negative (Negative) Urine Bilirubin Negative (Negative) Urine Urobilinogen 1.0 (<2.0) mg/dL Add Ur Microanalysis Reviewed Leukocyte Esterase Rfl 3+ H (Negative) MARCIA/UL Urine RBC 11-20 H (0-2) /hpf Urine WBC 21-50 H (0-3) /hpf Ur Squamous Epith Cells Many H (Few) /hpf Urine Bacteria None seen /hpf Urine Casts 6-10 Urine Mucus Present /lpf Salicylates < 1.0 L (2-20) mg/dL Urine Opiates Screen Negative (Negative) Urine Methadone Screen Negative (Negative) Acetaminophen < 10 L (10-30) ug/mL Ur Barbiturates Screen Negative (Negative) Ur Phencyclidine Scrn Negative (Negative) Ur Amphetamine Screen Negative (Negative) U Benzodiazepines Scrn Positive A (Negative) Urine Cocaine Screen Negative (Negative) U Cannabinoids Screen Negative (Negative) Ethyl Alcohol < 10 (<10) mg/dL Influenza A (RT-PCR) Negative (Negative) Influenza B (RT-PCR) Negative (Negative) RSV (RT-PCR) Negative (Negative) SARS-CoV-2 RNA (RT-PCR) Negative (Negative) <Margarita Brice Romero, PHOTOSTAT OPERATOR HELPER - Last Filed: 03/03/25 03:28> Lab Results 03/02/25 03/02/25 03/02/25 Range/Units 11:27 11:28 12:55 WBC 10.3 H (4.5-10.0) K/mm3 RBC 4.63 (4.2-5.4) M/mm3 Hgb 13.9 (12.0-15.0) g/dL Hct 44.1 (37.0-47.0) % MCV 95.2 (80-100) fl MCH 30.0 (26-34) pg MCHC 31.5 L (32-36) g/dl RDW 15.0 H (11.5-14.5) % Plt Count 380 H (150-375) k/mm3 MPV 9.4 (7.4-10.4) fl Immature Gran % (Auto) 0.4 (0-0.5) % Neut % (Auto) 69.8 (45.5-73.1) % Lymph % (Auto) 19.7 (18.3-44.2) % [place] % (Auto) 8.3 (2.6-8.5) % Eos % (Auto) 1.0 (0-4.4) % Baso % (Auto) 0.8 (0.2-1.2) % Lymph # (Auto) 2.04 (0.9-3.2) K/mm3 [place] # (Auto) 0.9 H (0.1-0.6) K/mm3 Eos # (Auto) 0.1 (0-0.3) K/mm3 Baso # (Auto) 0.1 (0.0-0.1) K/mm3 Abs Immat Gran (auto) 0.04 H (0.00-0.031) K/mm3 Absolute Neuts (auto) 7.2 H (1.3-6.7) K/mm3 Absolute Nucleated RBC 0.000 (0.0-0.012) K/mm3 Nucleated RBC % 0.0 (0.0-0.2) % Sodium 140 (137-145) mmol/L Potassium 3.8 (3.4-5.0) mmol/L Chloride 105 (98-107) mmol/L Carbon Dioxide 32 H (22-30) mmol/L Anion Gap 3 L (4-12) mmol/L BUN 24 H (7-17) mg/dL Creatinine 0.57 L (0.7-1.0) mg/dL Estim Creat Clear Calc 59 ml/min Estimated GFR > 60 (59 - ) Glucose 89 (65-110) mg/dL Calcium 8.8 (8.4-10.2) mg/dL Magnesium 2.4 H (1.6-2.3) mg/dL Total Bilirubin 0.5 (0.2-1.3) mg/dL AST 29 (14-36) U/L ALT 29 (6-35) U/L Alkaline Phosphatase 53 (38-126) U/L Total Protein 7.0 (6.3-8.2) g/dL Albumin 3.9 (3.5-5.1) g/dL TSH < 0.015 L (0.465-4.680) uIU/mL Free T4 1.44 (0.78-2.19) ng/dL Total T3 1.27 (0.82-1.58) NG/ML Urine Color Yellow (Yellow) Urine Appearance Turbid H (Clear) Urine pH 8.0 (5.0-9.0) Ur Specific [place] 1.022 (1.001-1.035) Urine Protein 1+ H (Negative) mg/dL Urine Glucose (UA) Negative (Negative) mg/dL Urine Ketones Trace H (Negative) mg/dL Ur Blood (Man) 2+ H (Negative) Urine Nitrate Negative (Negative) Urine Bilirubin Negative (Negative) Urine Urobilinogen 1.0 (<2.0) mg/dL Add Ur Microanalysis Reviewed Leukocyte Esterase Rfl 3+ H (Negative) MARCIA/UL Urine RBC 11-20 H (0-2) /hpf Urine WBC 21-50 H (0-3) /hpf Ur Squamous Epith Cells Many H (Few) /hpf Urine Bacteria None seen /hpf Urine Casts 6-10 Urine Mucus Present /lpf Salicylates < 1.0 L (2-20) mg/dL Urine Opiates Screen Negative (Negative) Urine Methadone Screen Negative (Negative) Acetaminophen < 10 L (10-30) ug/mL Ur Barbiturates Screen Negative (Negative) Ur Phencyclidine Scrn Negative (Negative) Ur Amphetamine Screen Negative (Negative) U Benzodiazepines Scrn Positive A (Negative) Urine Cocaine Screen Negative (Negative) U Cannabinoids Screen Negative (Negative) Ethyl Alcohol < 10 (<10) mg/dL Influenza A (RT-PCR) Negative (Negative) Influenza B (RT-PCR) Negative (Negative) RSV (RT-PCR) Negative (Negative) SARS-CoV-2 RNA (RT-PCR) Negative (Negative) <Srikanth Jennings MD - Last Filed: 03/05/25 06:46> Imaging Data Attestation: I personally reviewed and interpreted this imaging study as follows: < Ro Garces PA-C - Last Filed: 03/04/25 17:16> Radiologist's impression: ITS Impressions Head CT 03/02/25 11:10 Impression: No acute intracranial hemorrhage or suspicious mass effect. Inflammatory sinus disease. Cervical Spine CT 03/02/25 11:13 Impression: Anterior fixation at the levels of C4, C5 and C6 without acute fracture. Lucency within the right lamina of C5, an interval change from 2021. 3 mm soft tissue nodule within the left upper lobe, also an interval change from which dedicated noncontrast enhanced CT examination of the chest is suggested, if the patient is clinically able. <Ro Garces PA-C - Last Filed: 03/04/25 17:16> Discharge Plan Discharge Clinical Impression: Suicide attempt by drug overdose, Depression with suicidal ideation, Low serum thyroid stimulating hormone (TSH), Abnormal finding on urinalysis, Incidental pulmonary nodule <AMADOR Qiu Last Filed: 03/04/25 17:16> Patient Disposition: Psychiatric Hosp <AMADOR Qiu Last Filed: 03/04/25 17:16> Condition: Serious <AMADOR Qiu Last Filed: 03/04/25 17:16> Additional Instructions: Take antibiotics as prescribed for UTI. Your imaging here did show evidence of a pulmonary nodule. You will need to follow-up with your primary care doctor for this. Your TSH was very low today. You will need to follow-up with your primary care doctor for this. <Ro Garces PA-C - Last Filed: 03/04/25 17:16> Patient Language: Kinyarwanda <Ro Garces PA-C - Last Filed: 03/04/25 17:16> Prescriptions: New cephalexin 500 mg capsule 500 mg PO Q6H 7 Days Qty: 28 0RF No Action hyoscyamine sulfate 0.25 mg tablet,disintegrating 0.25 mg PO QID PRN (Reason: dyspepsia) naltrexone 4.5 mg capsule 0.4 mg PO tramadol 50 mg tablet 50 mg PO Q6H PRN (Reason: pain) carica papaya Tablet 1 tablet PO TID Rx Instructions: administer with meals erythromycin 250 mg tablet,delayed release (DR/EC) 500 mg PO Q6H estradiol [Estrace] 0.01 % (0.1 mg/gram) cream 2 g vaginal 2XW Rx Instructions: for 7 days pantoprazole 40 mg tablet,delayed release (DR/EC) 40 mg PO QAM polyvinyl alcohol 0.6 % drops 2 drp ophthalmic (eye) Xifaxan 550 mg tablet 550 mg PO BID cyclosporine [Restasis] 0.05 % dropperette 1 drp EACH EYE Q12H ondansetron 4 mg tablet,disintegrating 4 mg PO Q8H Adult One Daily Multivitamin 1 tablet PO DAILY polyethylene glycol 3350 [Miralax] 17 gram Powder In Packet 17 g PO DAILY alprazolam 2 mg tablet 2 mg PO HS PRN (Reason: Anxiety) duloxetine 60 mg capsule,delayed release(DR/EC) 60 mg PO BID Adults Multivitamin 18 mg iron-400 mcg-25 mcg Tablet 1 tablet PO DAILY lisinopril 10 mg tablet 10 mg PO DAILY <Ro Garces PA-C - Last Filed: 03/04/25 17:16> Follow-up/Referrals: PHYSICIAN,BACK PAD INSPECTOR [Primary Care Provider] - <Ro Garces PA-C - Last Filed: 03/04/25 17:16>
[2025-03-02] MEDS: SODIUM CHLORIDE 0.9% IV 1,000 ML 999 ML IV CONT (11:13)
--- NOTE | 2025-03-02 11:17 | PC.NURSE ---
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 Patient is drowsy at this time.
[2025-03-02 11:34] LABS: Basophils Absolute Auto 0.1 K/mm3 (0.0-0.1); Basophils Percent Auto 0.8 % (0.2-1.2); Eosinophils Absolute Auto 0.1 K/mm3 (0-0.3); Hematocrit 44.1 % (37.0-47.0); Hemoglobin 13.9 g/dL (12.0-15.0); Immature Granulocyte Absolute 0.04 K/mm3 (0.00-0.031); Immature Granulocyte Percent A 0.4 % (0-0.5); Lymphocytes Absolute Auto 2.04 K/mm3 (0.9-3.2); Lymphocytes Percent Auto 19.7 % (18.3-44.2); Mean Corpuscular HGB Conc 31.5 g/dl (32-36); Mean Corpuscular Volume 95.2 fl (80-100); Mean Platelet Volume 9.4 fl (7.4-10.4); Monocytes Absolute Auto 0.9 K/mm3 (0.1-0.6); Monocytes Percent Auto 8.3 % (2.6-8.5); Neutrophils Absolute Auto 7.2 K/mm3 (1.3-6.7); Neutrophils Percent Auto 69.8 % (45.5-73.1); Platelet Count Result 380 k/mm3 (150-375); Red Blood Count 4.63 M/mm3 (4.2-5.4); White Blood Count 10.3 K/mm3 (4.5-10.0)
[2025-03-02 11:45] LABS: Alanine Aminotransferase 29 U/L (6-35); Albumin Level 3.9 g/dL (3.5-5.1); Alkaline Phosphatase 53 U/L (38-126); Anion Gap 3 mmol/L (4-12); Aspartate Amino Transferase 29 U/L (14-36); Bilirubin,Total 0.5 mg/dL (0.2-1.3); Blood Urea Nitrogen 24 mg/dL (7-17); Calcium 8.8 mg/dL (8.4-10.2); Carbon Dioxide 32 mmol/L (22-30); Chloride 105 mmol/L (98-107); Estimated CRCL calculation 59 ml/min; Estimated Glomerular Filt Rate > 60; Glucose 89 mg/dL (65-110); Magnesium 2.4 mg/dL (1.6-2.3); Potassium 3.8 mmol/L (3.4-5.0); Sodium 140 mmol/L (137-145)
[2025-03-02 11:52] LABS: Acetaminophen < 10 ug/mL (10-30); Ethanol < 10 mg/dL (<10); Salicylate < 1.0 mg/dL (2-20)
[2025-03-02 12:13] LABS: Influenza A QL RT-PCR Negative (Negative); Influenza B QL RT-PCR Negative (Negative); RSV RNA, RT-PCR Negative (Negative); SARS-CoV-2 RNA PCR Negative (Negative)
[2025-03-02 12:15] LABS: Thyroid Stimulating Hormone < 0.015 uIU/mL (0.465-4.680)
[2025-03-02 12:55] LABS: Free T4 Free Thyroxine 1.44 ng/dL (0.78-2.19)
[2025-03-02] MEDS: ACETAMINOPHEN 500 MG TABLET 1000 MG PO (13:12)
[2025-03-02 13:25] LABS: Amphetamine Screen Urine Negative (Negative); Barbiturate Screen Urine Negative (Negative); Benzodiazepines Screen Urine Positive (Negative); Cannabinoid Screen Urine Negative (Negative); Cocaine Screen Urine Negative (Negative); Methadone Screen Urine Negative (Negative); Opiate Screen Urine Negative (Negative); Phencyclidine Screen Urine Negative (Negative)
--- NOTE | 2025-03-02 13:28 | PC.NURSE ---
pt case closed by [facility] poison control spoke with Pamela
[2025-03-02 13:40] LABS: Total Triiodothyronine (T3) 1.27 NG/ML (0.82-1.58)
[2025-03-02 13:43] LABS: Add Urine Microscopic? YES; Appearance Urine Turbid (Clear); Bacteria Urine None Seen /hpf; Bilirubin Urine Negative (Negative); Blood Urine 2+ (Negative); Color Urine Yellow (Yellow); Glucose Urine UA Negative (Negative); Ketones Urine Trace mg/dL (Negative); Leukocyte Esterase Ur 3+ LEU/UL (Negative); Mucus Urine Present /lpf; Need Manual Microscopic Reviewed; Nitrate Urine Negative (Negative); Protein Urine 1+ mg/dL (Negative); Specific Grav Ur 1.022 (1.001-1.035); Squamous Epithelial Cell Urine Many /hpf (Few); WBC Urine 21-50 /hpf (0-3)
[2025-03-02 14:19] VITALS: BP 162/77; PULSE 72; RESP 20; TEMP 36.6; O2SAT 96
--- NOTE | 2025-03-02 14:20 | PC.NURSE ---
assumed care of pt from YESSICA Branch. pt resting on stretcher, daughter at bedside. sitter at bedside as well. informed pt that we will be drawing more labs to recheck in a few hours, verbalized understanding. no distress at this time
--- NOTE | 2025-03-02 15:08 | PC.NURSE ---
crisis team arrived, at bedside
[2025-03-02] MEDS: CEPHALEXIN 500 MG CAPSULE PO ×2 (15:14→20:20)
--- NOTE | 2025-03-02 15:29 | PC.NURSE ---
case closed out from poison control #[id number]
--- NOTE | 2025-03-02 16:12 | PC.NURSE ---
spoke with Anastasiya from [facility], requesting to speak with pt. pt wheeled to phone, did not want to speak with intake nurse and instead requested that her daughter speak with intake nurse. Anastasiya called back and stated that daughter verbalized unwillingness to have pt transported to [facility]. crisis team and discharge door operator aware
--- NOTE | 2025-03-02 17:36 | PC.NURSE ---
spoke with sammie at crisis. informed that we received a call from Marni at [facility] regarding a referral for this patient. Sammie stated that she would reach out to [facility] and speak with her about the case and possible transfer and will call me back
--- NOTE | 2025-03-02 18:03 | PC.NURSE ---
spoke with Anastasiya at [facility] who states they need to know if the patient is agreeable to go to their facility or if she needs to close out the case. Spoke with YESSICA Arizmendi who recommended speaking with the pt. Spoke with pt and daughter, informed that [facility] needs a decision on transfer or closing the case, pt and daughter agreed to close the case and wait for the other facilities to respond. Anastasiya informed, states she will close out the case. billing manager and Ro informed
--- NOTE | 2025-03-02 18:17 | PC.NURSE ---
spoke with Sammie at Crisis, requesting to send information to [facility]
[2025-03-02 18:23] VITALS: BP 159/81; PULSE 77; RESP 14; TEMP 36.7; O2SAT 98
--- NOTE | 2025-03-02 18:34 | PC.NURSE ---
spoke with Ivelisse at [facility]. Pt has been accepted, however, [facility] daughter states she has been accepted to [facility] [place]. Informed pt and daughter that we do not have acceptance from that facility at this time, we have faxed them information but have not heard a decision. spoke with adan at [facility], she has not heard back about acceptance to the [facility]
--- NOTE | 2025-03-02 18:45 | PC.NURSE ---
spoke with brandi from [facility]. states the patient has not been accepted, they are awaiting the chart for review. informed that the chart has been faxed, verbalized understanding, will call back with a decision when it is made
--- NOTE | 2025-03-02 19:25 | PC.NURSE ---
spoke with Summer at [facility]. Summer states that pt was not accepted at their facility due to lab values. states if pt is still here tomorrow we can call again for possible placement
--- NOTE | 2025-03-02 19:45 | PC.NURSE ---
patient bedside report received from Ivelisse JUAN.
--- NOTE | 2025-03-02 19:46 | PC.NURSE ---
Called out to [facility] and spoke with intake at their behavioral health unit, discussed with them that the family of the patient declined a bed when it was offered, and they were not accepted at the preferred facility, and they wanted to see if she could get the bed at [facility]. [facility] states that they no longer have any more beds in that unit.
--- NOTE | 2025-03-02 19:50 | PC.NURSE ---
spoke with Sammie from Crisis to update on pt bed placement. will reach out to [facility] for update and will call back
--- NOTE | 2025-03-02 19:55 | PC.NURSE ---
spoke with pt and family, adament that she does not want to be treated at [facility]. inside tester and charge aware. spoke with Amira at intake at [facility] and informed that pt refuses treatment at their facility and to close out the case.
--- NOTE | 2025-03-02 19:58 | PC.NURSE ---
Sammie with Crisis called at this time, and told that the patient and family declined the bed at [facility]. Will continue to discuss placement with family and crisis intervention.
--- NOTE | 2025-03-02 21:18 | PC.NURSE ---
[facility] - [phone] [facility]- [phone] Ivelisse - [facility] [phone], [phone] [phone]
--- NOTE | 2025-03-02 22:13 | PC.NURSE ---
Sammie from crisis called and stated that they have no updates and to call with any changes on condition
--- NOTE | 2025-03-02 22:46 | PC.NURSE ---
Patient updated to the fact that she hasn't been accepted to any more facilities at this time, and that it could be a few days before she does get a bed somewhere and she should expect it to not be a fast process. patient stated that she wouldn't be staying here, and that she would leave. Jo FILLER PICKER aware. patient then came to the nurses station stating that she would be leaving and wasn't going to stay. digital intern and this rn provided education that she was at risk of harming herself. Patient educated on voluntary vs involuntary status. patient stated that she has the right to leave because she lives in [place] and everyone has rights. FILLER PICKER educated that when someone becomes a danger to themselves or others they have certain rights taken from them so that we can keep them safe.
--- NOTE | 2025-03-02 23:22 | PC.NURSE ---
[facility] we can try [facility] tomorrow. ok to fax all information in chart to mateo carrasco fax [phone]
--- NOTE | 2025-03-02 23:30 | PC.NURSE ---
rachel carrasco faxed paperwork, daughter sandie at bedside updated.
[2025-03-03 01:00] VITALS: BP 182/90; PULSE 74; RESP 16; TEMP 36.6; O2SAT 98
--- NOTE | 2025-03-03 02:32 | PC.NURSE ---
Justin Delgado Pt is accepted by dr breen to [facility] room 108 [address] [facility] [place] [address] rn report [phone] diagnosis : unspecified depressive disorder
--- NOTE | 2025-03-03 02:39 | PC.NURSE ---
rn report to Amalia @ [facility] [phone]
--- NOTE | 2025-03-03 03:15 | PC.NURSE ---
[facility] - clif, patient experience coordinator - tramadol 50mg x 1 dose
[2025-03-03] MEDS: CEPHALEXIN 500 MG CAPSULE PO (03:19)
[2025-03-03] MEDS: traMADol HCL (*CRX) 50 MG TABLET PO (03:19)
[2025-03-03 03:48] VITALS: BP 182/90; PULSE 74; RESP 16; TEMP 36.6; O2SAT 98
== END 2025-03-03 03:50 ==
PROVIDERS: Emergency Provider Physician Assistant
DX: T40.422A Poisoning by tramadol, intentional self-harm, initial encounter (principal); T40.2X2A Poisoning by other opioids, intentional self-harm, initial encounter; T42.4X2A Poisoning by benzodiazepines, intentional self-harm, initial encounter; F32.A Depression, unspecified; E78.5 Hyperlipidemia, unspecified; J44.9 Chronic obstructive pulmonary disease, unspecified; I10 Essential (primary) hypertension; F17.210 Nicotine dependence, cigarettes, uncomplicated; E03.9 Hypothyroidism, unspecified; R91.1 Solitary pulmonary nodule; R82.90 Unspecified abnormal findings in urine; Z11.59 Encounter for screening for other viral diseases
CPT/HCPCS: 36415; 70450; 72125; 80053; 80143; 80179; 80307; 81001; 82077; 83735; 84439; 84443; 84480; 85025; 87086; 87637; 93005; 96360; 99285; A9270; J7030